=== PATIENT | male | born 1960 | race African-American/Black ===

== ENCOUNTER 2016-06-28 14:24 | Inpatient (IN) | payer OTHER ==
[2016-06-28 16:49] VITALS: BMI 30.6
--- NOTE | 2016-06-28 17:25 | HP ---
Admission [facility] Chief Complaint: REHAB TX FOR DRUG DEPENDENCE Allergies/Adverse Reactions: Allergies Allergy/AdvReac Type Severity Reaction Status Date / Time No Known Drug Allergies Allergy Verified 06/28/16 17:16 lactose AdvReac bloating Verified 06/28/16 17:16 and gas red sauce Allergy Intermediate Hives Uncoded 06/28/16 17:16 RED MEAT Allergy Mild Hives Uncoded 06/28/16 17:16 History of Present Illness: 55 Y/O AA/MALE WITH A HX OF COCAINE AND MARIJUANA DEPENDENCE SEEKING REHAB TX Exam Limitations: No Limitations - Ebola screening Have you traveled outside of the country in the last 21 days: No Have you had contact with anyone from an Ebola affected area: No Have you been sick,other than usual withdrawal symptoms: No Do you have a fever: No - Review of Systems Constitutional: Loss of Appetite, Changes in sleep, Unintentional Wgt. Loss EENT: reports: Blurred Vision (WEARS GLASSES), Dental Problems (UPPER DENTURES) Respiratory: reports: No Symptoms reported Cardiac: reports: Lightheadedness (ON GETTING UP) GI: reports: Constipated, Poor Appetite : reports: No Symptoms Reported Musculoskeletal: reports: Back Pain (LAMINECTOMY WITH FUSION SX), Muscle Pain, Neck Pain, Other (ARTHRITIS OF HAND JOINTS) Integumentary: reports: Dryness Neuro: reports: Numbness, Tingling, Dizziness, Other (HX NEUROPATHY OF LOWER EXTREMITIES) Endocrine: reports: No Symptoms Reported Hematology: reports: No Symptoms Reported Psychiatric: reports: Orientated x3, Anxious, Depressed (SOMETIMES.) Other Systems: Reviewed and Negative Patient History - Patient Medical History Hx Anemia: No Hx Asthma: No Hx Chronic Obstructive Pulmonary Disease (COPD): No Hx Cancer: No Hx Cardiac Disorders: Yes (CHEST PAINS-- TWO STENTS.) Hx Congestive Heart Failure: No Hx Hypertension: Yes (ON MEDS) Hx Hypercholesterolemia: Yes (ON MEDS) Hx Pacemaker: No HX Cerebrovascular Accident: No Hx Seizures: No Hx Dementia: No Hx Diabetes: Yes (ON METFORMIN 500 MG BID) Hx Gastrointestinal Disorders: No Hx Liver Disease: No Hx Genitourinary Disorders: No Hx Sexually Transmitted Disorders: No Hx Renal Disease (ESRD): No Hx Thyroid Disease: No Hx Human Immunodeficiency Virus (HIV): No (NEGATIVE HX) Hx Hepatitis C: No Hx Depression: No Hx Suicide Attempt: No Hx Bipolar Disorder: No Hx Schizophrenia: No Other Medical History: HX INSOMNIA--ON SEROQUEL - Patient Surgical History Past Surgical History: No Hx Neurologic Surgery: No Hx Cataract Extraction: No Hx Cardiac Surgery: Yes (CARDIAC STENTS #2 in 2010) Hx Lung Surgery: No Hx Breast Surgery: No Hx Breast Biopsy: No Hx Abdominal Surgery: No Hx Appendectomy: No Hx Cholecystectomy: Yes (02/22) Hx Genitourinary Surgery: No Hx Section: No Hx Orthopedic Surgery: Yes (S/P LAMINECTOMY C3,4,5 2004) Hx Hysterectomy: No Other Surgical History: CHRONIC CERVICAL PAIN Anesthesia Reaction: No - PPD History Previous Implant?: Yes Documented Results: Negative w/proof Implanted On Prior [facility] Admission?: Yes Date: 11/28/14 Results: 0mm PPD to be Administered?: Yes - Reproductive History Patient is a Female of Child Bearing Age (11 -55 yrs old): No (MALE) - Smoking Cessation Smoking history: Current every day smoker Have you smoked in the past 12 months: Yes Aproximately how many cigarettes per day: 10 Cigars Per Day: 0 Hx Chewing Tobacco Use: No Initiated information on smoking cessation: Yes 'Breaking Loose' booklet given: 06/28/16 - Substance & Tx. History Hx Alcohol Use: No (DENIES) Hx Substance Use: Yes (COCAINE/MARIJUANA) Substance Use Type: Cocaine, Marijuana Hx Substance Use Treatment: Yes - Substances Abused Cocaine Route: Smoking Frequency: 1-3 times last 30 days Amount used: $200-250 Age of first use: 22 Date of Last Use: 06/25/16 Marijuana/Hashish Route: Smoking Frequency: Daily Amount used: 2 BAGS Age of first use: 15 Date of Last Use: 06/27/16 Family Disease History - Family Disease History Family Disease History: CA: Father (alzheimers,ALCOHOL), Other: Father, Mother ( ALCOHOL, HTN), Brother (aneurysm ) Admission Physical Exam [facility] - Vital Signs Vital Signs: Vital Signs - 24 hr 06/28/16 16:44 Temperature 97.2 F L Pulse Rate 79 Respiratory 18 Rate Blood Pressure 127/77 - Physical General Appearance: Yes: No Apparent Distress, Anxious HEENTM: Yes: EOMI, Normocephalic, HAIDER, Pharynx Normal Respiratory: Yes: Chest Non-Tender, Lungs Clear, Normal Breath Sounds, No Respiratory Distress Neck: Yes: Supple, Trachea in good position Breast: Yes: Breast Exam Deferred Cardiology: Yes: Regular Rhythm, Regular Rate, S1, S2 Abdominal: Yes: Normal Bowel Sounds, Non Tender, Soft Genitourinary: Yes: Other (N/C) Back: Yes: Surgical Scar Musculoskeletal: Yes: full range of Motion, Gait Steady Extremities: Yes: Normal Range of Motion, Non-Tender Neurological: Yes: senior database administrator II-XII NML intact, Fully Oriented, Alert Integumentary: Yes: Dry, Warm Lymphatic: Yes: Within Normal Limits - Diagnostic (1) Alcohol dependence with uncomplicated withdrawal Current Visit: No Status: Inactive (2) Back pain Current Visit: Yes Status: Chronic Qualifiers: Chronicity: chronic Back pain laterality: midline Sciatica laterality: bilateral sciatica Comment: PAIN OF WHOLE SPINE (3) CAD (coronary artery disease) Current Visit: Yes Status: Chronic Qualifiers: Coronary Disease-Associated Artery/Lesion type: bypass graft [place] vs. transplanted heart: [place] heart (4) Cannabis dependence Current Visit: Yes Status: Chronic (5) Cocaine dependence Current Visit: Yes Status: Chronic Qualifiers: Substance use status: uncomplicated Qualified Code(s): F14.20 - Cocaine dependence, uncomplicated (6) Diabetes mellitus Current Visit: Yes Status: Chronic Qualifiers: Diabetes mellitus type: type 2 Diabetes mellitus complication status: without complication (7) Hypertension Current Visit: Yes Status: Chronic Qualifiers: Hypertension type: essential hypertension Qualified Code(s): I10 - Essential (primary) hypertension (8) Nicotine dependence Current Visit: Yes Status: Chronic Qualifiers: Nicotine product type: cigarettes Substance use status: uncomplicated Qualified Code(s): F17.210 - Nicotine dependence, cigarettes, uncomplicated (9) Obesity Current Visit: Yes Status: Chronic Qualifiers: Obesity severity: unspecified obesity severity (10) PCP abuse Current Visit: No Status: Inactive (11) Xerosis of skin Current Visit: Yes Status: Chronic Cleared for Admission [facility] - Detox or Rehab Claeared for Rehab Admission: Yes S Breath Alcohol Content Breath Alcohol Content: 0 Urine Drug Screen - Results Urine Drug Screen Results: THC-Marijuana, JAMAAL-Cocaine
[2016-06-28] MEDS ORDERED: MENTHOL/PHENOL 1 EACH UD MM PRN (17:51)
[2016-06-28] MEDS ORDERED: P-EPHED 60MG/TRIPROLIDI 2.5MG TABLET PO PRN (17:51)
[2016-06-28] MEDS ORDERED: LOPERAMIDE HCL 2 MG CAPSULE PO PRN (17:51)
[2016-06-28] MEDS ORDERED: MAGNESIUM HYDROX 2400MG/30ML ORAL SUSPENSION 30 ML CUP PO PRN (17:51)
[2016-06-28] MEDS ORDERED: MAGNESIUM CITRATE 300 ML BOTTLE PO PRN (17:51)
[2016-06-28] MEDS ORDERED: hydrOXYzine PAMOATE 25 MG CAPSULE (FP) PO PRN (17:51)
[2016-06-28] MEDS ORDERED: guaiFENesin/D-METHORPHAN HB 10 ML UNIT-DOSE CUPS PO PRN (17:51)
[2016-06-28] MEDS ORDERED: IBUPROFEN 400 MG TABLET (FP) PO PRN (17:51)
[2016-06-28] MEDS ORDERED: MAG HYDROX/AL HYDROX/SIMETH 30 ML UNIT-DOSE CUP PO PRN (17:51)
[2016-06-28] MEDS ORDERED: AMMONIUM LACTATE 12% LOTION 225 GM BOTTLE TP SCH (18:00)
[2016-06-28] MEDS: NICOTINE 14 MG/24 HOURS TOPICAL PATCH TD SCH (21:59)
[2016-06-28] MEDS: THIAMINE HCL 100 MG TABLET (FP) PO SCH (22:02)
[2016-06-28] MEDS ORDERED: TUBERCULIN PPD 5 TU/0.1ML VIAL ID ONE (22:02)
[2016-06-28] MEDS: GABAPENTIN 400 MG CAPSULE (FP) PO SCH (22:02)
[2016-06-28] MEDS: FENOFIBRIC ACID 45 MG CAP PO SCH (22:04)
[2016-06-28] MEDS: hydrALAZINE HCL 25 MG TABLET (FP) PO SCH (22:04)
[2016-06-28] MEDS: diphenhydrAMINE HCL 50 MG CAPSULE PO PRN (22:05)
[2016-06-28 23:15] LABS: URINE APPEARANCE CLEAR; URINE BILIRUBIN NEGATIVE (NEGATIVE); URINE BLOOD NEGATIVE (NEGATIVE); URINE COLOR COLORLESS; URINE GLUCOSE (UA) NEGATIVE (NEGATIVE); URINE KETONE NEGATIVE (NEGATIVE); URINE LEUK ESTERASE NEGATIVE (NEGATIVE); URINE NITRITE NEGATIVE (NEGATIVE); URINE PROTEIN NEGATIVE (NEGATIVE); URINE UROBILINOGEN NEGATIVE E.U./dl (0.2-1.0)
[2016-06-29] MEDS: GABAPENTIN 400 MG CAPSULE (FP) PO SCH ×3 (06:58→21:40)
[2016-06-29] MEDS: INSULIN SLIDING SCALE (NOVOLOG) 1 VIAL SQ SCH ×2 (06:58→16:51)
[2016-06-29] MEDS: metFORMIN HCL 500 MG TABLET (FP) PO SCH ×2 (06:58→16:51)
[2016-06-29 10:18] LABS: MCH 30.6 pg (25.7-33.7); MCHC 33.3 g/dl (32.0-35.9); MEAN CELL VOLUME 91.9 fl (80-96); MEAN PLT VOLUME 9.4 fl (7.5-11.1); PLATELET COUNT 148 K/MM3 (134-434); RDW 12.9 % (11.9-15.9); WHITE BLOOD COUNT 3.3 K/mm3 (4.0-10.0)
[2016-06-29] MEDS: ASPIRIN 81 MG CHEWABLE TABLETS PO SCH (10:25)
[2016-06-29] MEDS: NIFEdipine E.R. 30 MG TABLET (FP) PO SCH (10:25)
[2016-06-29] MEDS: CLOPIDOGREL BISULFATE 75 MG TABLET (FP) PO SCH (10:25)
[2016-06-29] MEDS: PRENATAL VITAMINS W/ FOLIC ACID TABLET (FP) PO SCH (10:25)
[2016-06-29] MEDS: NICOTINE 14 MG/24 HOURS TOPICAL PATCH TD SCH (10:26)
[2016-06-29] MEDS: hydrALAZINE HCL 25 MG TABLET (FP) PO SCH ×2 (10:26→21:40)
[2016-06-29] MEDS: FENOFIBRIC ACID 45 MG CAP PO SCH (10:26)
[2016-06-29 10:35] LABS: ALBUMIN 3.1 g/dl (3.4-5.0); ALK PHOS 126 U/L (45-117); ANION GAP 7 (8-16); BILIRUBIN,TOTAL 0.4 mg/dL (0.2-1.0); CALCIUM 8.5 mg/dL (8.5-10.1); CO2 26 mmol/L (21-32); CREATININE 0.8 mg/dL (0.7-1.3); GLUCOSE,RANDOM 96 mg/dL (74-106); SGOT/AST 11 U/L (15-37); SGPT/ALT 18 U/L (12-78); TOT PROT 6.1 g/dl (6.4-8.2)
--- NOTE | 2016-06-29 13:39 | HP ---
Psychiatrist Admission - Data Date of interview: 06/29/16 Admission source: [facility] Identifying data: This is the [facility] inpatient rehabilitation admission for this 55 year old single black male father who is unemployed and domiciled, residing alone in [facility]. Medical History: History of CAD ( two stents the last one in 2010), HTN, High cholesterol, DM, Arthritis to both hands, S/P Choleccystectomy, S/P Laminectomy of C3,4,5 and reports chronic cervical pain and sciatica from cervical spine to legs. Smokes 4-5 cigarettes daily. Psychiatric History: Patient reports past history of depression, no psychiatric hospitalizations , while at [facility] treated with Remeron with a good responce, states some nights he can't sleep and he asked PRN Remeron. Physical/Sexual Abuse/Trauma History: Reports no history of physical or sexual abuse and no history of service Vital Signs: Vital Signs - 24 hr 06/28/16 06/28/16 06/29/16 16:44 19:38 00:39 Temperature 97.2 F L 99.4 F Pulse Rate 79 80 Respiratory 18 18 18 Rate Blood Pressure 127/77 134/92 06/29/16 06/29/16 03:30 10:00 Temperature Pulse Rate 74 Respiratory 18 Rate Blood Pressure 144/85 Allergies/Adverse Reactions: Allergies Allergy/AdvReac Type Severity Reaction Status Date / Time No Known Drug Allergies Allergy Verified 06/28/16 17:16 lactose AdvReac bloating Verified 06/28/16 17:16 and gas red sauce Allergy Intermediate Hives Uncoded 06/28/16 17:16 RED MEAT Allergy Mild Hives Uncoded 06/28/16 17:16 Date of last physical exam: 06/28/16 Concur with the findings of this exam: Yes - Substance Abuse/Tx History Hx Alcohol Use: No Substance Use Type: Cocaine ($200 , reports recently relapsed), Marijuana Hx Substance Use Treatment: Yes - Admission Criteria Previous failed treatment: Yes Poor recovery environment: Yes Comorbidities: Yes Lacks judgement: Yes Mental Status Exam - Mental Status Exam Alert and Oriented to: Time, Place, Person Cognitive Function: Good Patient Appearance: Well Groomed Mood: Sad Affect: Appropriate, Mood Congruent Patient Behavior: Appropriate, Cooperative Speech Pattern: Clear, Appropriate Thought Process: Intact, Goal Oriented Thought Disorder: Not Present Hallucinations: None Suicidal Ideation: None Homicidal Ideation: None Insight/Judgement: Good Sleep: Poorly, Difficulty falling asleep Appetite: Good Muscle strength/Tone: Normal Gait/Station: Normal Psychiatric Findings - Problem List ([place] 1, 2,3) (1) Back pain Current Visit: Yes Status: Chronic Qualifiers: Chronicity: chronic Back pain laterality: midline Sciatica laterality: bilateral sciatica Comment: PAIN OF WHOLE SPINE (2) CAD (coronary artery disease) Current Visit: Yes Status: Chronic Qualifiers: Coronary Disease-Associated Artery/Lesion type: bypass graft [place] vs. transplanted heart: [place] heart (3) Cannabis dependence Current Visit: Yes Status: Chronic (4) Cocaine dependence Current Visit: Yes Status: Chronic Qualifiers: Substance use status: uncomplicated Qualified Code(s): F14.20 - Cocaine dependence, uncomplicated (5) Diabetes mellitus Current Visit: Yes Status: Chronic Qualifiers: Diabetes mellitus type: type 2 Diabetes mellitus complication status: without complication (6) Hypertension Current Visit: Yes Status: Chronic Qualifiers: Hypertension type: essential hypertension Qualified Code(s): I10 - Essential (primary) hypertension (7) Nicotine dependence Current Visit: Yes Status: Chronic Qualifiers: Nicotine product type: cigarettes Substance use status: uncomplicated Qualified Code(s): F17.210 - Nicotine dependence, cigarettes, uncomplicated (8) Insomnia Current Visit: Yes Status: Acute - Initial Treatment Plan Initial Treatment Plan: Will add Remeron PRN, continue to monitor progress as needed.
[2016-06-29] MEDS ORDERED: LIDOCAINE 5% TOPICAL PATCH TP ONE (14:36)
--- NOTE | 2016-06-29 16:54 | EKG ---
Test Reason : Blood Pressure : / mmHG Vent. Rate : 075 BPM Atrial Rate : 075 BPM P-R Int : 184 ms QRS Dur : 110 ms QT Int : 374 ms P-R-T Axes : 056 -44 -03 degrees QTc Int : 417 ms NORMAL SINUS RHYTHM LEFT AXIS DEVIATION VOLTAGE CRITERIA FOR LEFT VENTRICULAR HYPERTROPHY ABNORMAL ECG WHEN COMPARED WITH ECG OF 09-FEB-2014 15:43, T WAVE VARIATION Confirmed by SUZETTE DOBBS MD ([id number]) on 06/29/2016 4:54:26 PM Referred By: Confirmed By:SUZETTE DOBBS MD
[2016-06-29] MEDS: THIAMINE HCL 100 MG TABLET (FP) PO SCH (21:40)
[2016-06-29] MEDS: diphenhydrAMINE HCL 50 MG CAPSULE PO PRN (21:41)
[2016-06-30] MEDS: metFORMIN HCL 500 MG TABLET (FP) PO SCH ×2 (06:27→16:46)
[2016-06-30] MEDS: GABAPENTIN 400 MG CAPSULE (FP) PO SCH ×3 (06:27→21:06)
[2016-06-30] MEDS: INSULIN SLIDING SCALE (NOVOLOG) 1 VIAL SQ SCH ×2 (06:28→16:47)
[2016-06-30] MEDS: NIFEdipine E.R. 30 MG TABLET (FP) PO SCH (10:11)
[2016-06-30] MEDS: CLOPIDOGREL BISULFATE 75 MG TABLET (FP) PO SCH (10:11)
[2016-06-30] MEDS: hydrALAZINE HCL 25 MG TABLET (FP) PO SCH ×2 (10:12→21:06)
[2016-06-30] MEDS: NICOTINE 14 MG/24 HOURS TOPICAL PATCH TD SCH (10:12)
[2016-06-30] MEDS: PRENATAL VITAMINS W/ FOLIC ACID TABLET (FP) PO SCH (10:12)
[2016-06-30] MEDS: NICOTINE POLACRILEX 2 MG GUM BC PRN (10:13)
[2016-06-30] MEDS: FENOFIBRIC ACID 45 MG CAP PO SCH (10:13)
[2016-06-30] MEDS: ASPIRIN 81 MG CHEWABLE TABLETS PO SCH (10:14)
[2016-06-30] MEDS: LIDOCAINE 5% TOPICAL PATCH TP SCH (10:14)
[2016-06-30] MEDS: THIAMINE HCL 100 MG TABLET (FP) PO SCH (21:06)
[2016-06-30] MEDS: MIRTAZAPINE 15 MG TABLET (FP) PO PRN (21:07)
[2016-07-01] MEDS: metFORMIN HCL 500 MG TABLET (FP) PO SCH ×2 (06:31→17:02)
[2016-07-01] MEDS: GABAPENTIN 400 MG CAPSULE (FP) PO SCH ×3 (06:31→21:05)
[2016-07-01] MEDS: INSULIN SLIDING SCALE (NOVOLOG) 1 VIAL SQ SCH ×2 (07:38→17:02)
[2016-07-01] MEDS: ASPIRIN 81 MG CHEWABLE TABLETS PO SCH (10:21)
[2016-07-01] MEDS: hydrALAZINE HCL 25 MG TABLET (FP) PO SCH ×2 (10:21→21:05)
[2016-07-01] MEDS: CLOPIDOGREL BISULFATE 75 MG TABLET (FP) PO SCH (10:21)
[2016-07-01] MEDS: PRENATAL VITAMINS W/ FOLIC ACID TABLET (FP) PO SCH (10:21)
[2016-07-01] MEDS: NIFEdipine E.R. 30 MG TABLET (FP) PO SCH (10:21)
[2016-07-01] MEDS: LIDOCAINE 5% TOPICAL PATCH TP SCH (10:22)
[2016-07-01] MEDS: NICOTINE 14 MG/24 HOURS TOPICAL PATCH TD SCH (10:22)
[2016-07-01] MEDS: FENOFIBRIC ACID 45 MG CAP PO SCH (10:25)
[2016-07-01] MEDS: THIAMINE HCL 100 MG TABLET (FP) PO SCH (21:05)
[2016-07-01] MEDS: MIRTAZAPINE 15 MG TABLET (FP) PO PRN (21:07)
[2016-07-02] MEDS: metFORMIN HCL 500 MG TABLET (FP) PO SCH ×2 (06:27→16:40)
[2016-07-02] MEDS: GABAPENTIN 400 MG CAPSULE (FP) PO SCH ×3 (06:27→21:01)
[2016-07-02] MEDS: INSULIN SLIDING SCALE (NOVOLOG) 1 VIAL SQ SCH ×2 (06:28→16:40)
[2016-07-02] MEDS: NIFEdipine E.R. 30 MG TABLET (FP) PO SCH (09:59)
[2016-07-02] MEDS: ASPIRIN 81 MG CHEWABLE TABLETS PO SCH (09:59)
[2016-07-02] MEDS: CLOPIDOGREL BISULFATE 75 MG TABLET (FP) PO SCH (09:59)
[2016-07-02] MEDS: hydrALAZINE HCL 25 MG TABLET (FP) PO SCH ×2 (10:00→21:02)
[2016-07-02] MEDS: PRENATAL VITAMINS W/ FOLIC ACID TABLET (FP) PO SCH (10:00)
[2016-07-02] MEDS: NICOTINE 14 MG/24 HOURS TOPICAL PATCH TD SCH (10:01)
[2016-07-02] MEDS: LIDOCAINE 5% TOPICAL PATCH TP SCH (10:01)
[2016-07-02] MEDS: FENOFIBRIC ACID 45 MG CAP PO SCH (10:02)
[2016-07-02] MEDS: AMMONIUM LACTATE 12% LOTION 225 GM BOTTLE TP PRN (10:51)
[2016-07-02] MEDS ORDERED: BACITRACIN 0.9 GM PACKET TP ONE (14:48)
--- NOTE | 2016-07-02 14:50 | PN ---
[facility] Progress Note Note: Pt. C/O dry closed lesions of the foreskin. P : Bacitracin oin't bid
[2016-07-02] MEDS: THIAMINE HCL 100 MG TABLET (FP) PO SCH (21:02)
[2016-07-02] MEDS: BACITRACIN 0.9 GM PACKET TP SCH (21:02)
[2016-07-03] MEDS: MIRTAZAPINE 15 MG TABLET (FP) PO PRN ×2 (00:01→21:28)
[2016-07-03] MEDS: metFORMIN HCL 500 MG TABLET (FP) PO SCH ×2 (07:15→16:33)
[2016-07-03] MEDS: GABAPENTIN 400 MG CAPSULE (FP) PO SCH ×3 (07:15→21:25)
[2016-07-03] MEDS: INSULIN SLIDING SCALE (NOVOLOG) 1 VIAL SQ SCH ×2 (07:16→16:33)
[2016-07-03] MEDS: NIFEdipine E.R. 30 MG TABLET (FP) PO SCH (10:07)
[2016-07-03] MEDS: PRENATAL VITAMINS W/ FOLIC ACID TABLET (FP) PO SCH (10:07)
[2016-07-03] MEDS: CLOPIDOGREL BISULFATE 75 MG TABLET (FP) PO SCH (10:07)
[2016-07-03] MEDS: ASPIRIN 81 MG CHEWABLE TABLETS PO SCH (10:07)
[2016-07-03] MEDS: BACITRACIN 0.9 GM PACKET TP SCH ×2 (10:08→21:25)
[2016-07-03] MEDS: FENOFIBRIC ACID 45 MG CAP PO SCH (10:08)
[2016-07-03] MEDS: LIDOCAINE 5% TOPICAL PATCH TP SCH (10:09)
[2016-07-03] MEDS: hydrALAZINE HCL 25 MG TABLET (FP) PO SCH ×2 (10:09→21:29)
[2016-07-03] MEDS: NICOTINE 14 MG/24 HOURS TOPICAL PATCH TD SCH (10:10)
[2016-07-03] MEDS: THIAMINE HCL 100 MG TABLET (FP) PO SCH (21:26)
[2016-07-04] MEDS: GABAPENTIN 400 MG CAPSULE (FP) PO SCH ×3 (06:32→21:25)
[2016-07-04] MEDS: metFORMIN HCL 500 MG TABLET (FP) PO SCH ×2 (06:32→16:52)
[2016-07-04] MEDS: INSULIN SLIDING SCALE (NOVOLOG) 1 VIAL SQ SCH ×2 (06:40→16:52)
[2016-07-04] MEDS: BACITRACIN 0.9 GM PACKET TP SCH ×2 (10:12→21:25)
[2016-07-04] MEDS: hydrALAZINE HCL 25 MG TABLET (FP) PO SCH ×2 (10:12→21:26)
[2016-07-04] MEDS: CLOPIDOGREL BISULFATE 75 MG TABLET (FP) PO SCH (10:12)
[2016-07-04] MEDS: ASPIRIN 81 MG CHEWABLE TABLETS PO SCH (10:12)
[2016-07-04] MEDS: NIFEdipine E.R. 30 MG TABLET (FP) PO SCH (10:12)
[2016-07-04] MEDS: PRENATAL VITAMINS W/ FOLIC ACID TABLET (FP) PO SCH (10:12)
[2016-07-04] MEDS: LIDOCAINE 5% TOPICAL PATCH TP SCH (10:13)
[2016-07-04] MEDS: NICOTINE 14 MG/24 HOURS TOPICAL PATCH TD SCH (10:14)
[2016-07-04] MEDS: FENOFIBRIC ACID 45 MG CAP PO SCH (10:14)
[2016-07-04] MEDS: THIAMINE HCL 100 MG TABLET (FP) PO SCH (21:25)
[2016-07-04] MEDS: MIRTAZAPINE 15 MG TABLET (FP) PO PRN (21:26)
[2016-07-05] MEDS: GABAPENTIN 400 MG CAPSULE (FP) PO SCH ×3 (06:25→21:22)
[2016-07-05] MEDS: metFORMIN HCL 500 MG TABLET (FP) PO SCH ×2 (06:25→16:45)
[2016-07-05] MEDS: INSULIN SLIDING SCALE (NOVOLOG) 1 VIAL SQ SCH ×2 (06:26→16:46)
[2016-07-05] MEDS: BACITRACIN 0.9 GM PACKET TP SCH ×2 (10:09→21:22)
[2016-07-05] MEDS: NIFEdipine E.R. 30 MG TABLET (FP) PO SCH (10:09)
[2016-07-05] MEDS: ASPIRIN 81 MG CHEWABLE TABLETS PO SCH (10:09)
[2016-07-05] MEDS: CLOPIDOGREL BISULFATE 75 MG TABLET (FP) PO SCH (10:09)
[2016-07-05] MEDS: PRENATAL VITAMINS W/ FOLIC ACID TABLET (FP) PO SCH (10:10)
[2016-07-05] MEDS: LIDOCAINE 5% TOPICAL PATCH TP SCH (10:10)
[2016-07-05] MEDS: hydrALAZINE HCL 25 MG TABLET (FP) PO SCH ×2 (10:10→21:22)
[2016-07-05] MEDS: NICOTINE 14 MG/24 HOURS TOPICAL PATCH TD SCH (10:11)
[2016-07-05] MEDS: FENOFIBRIC ACID 45 MG CAP PO SCH (10:11)
--- NOTE | 2016-07-05 15:29 | PN ---
Psychiatric Progress Note Vital Signs: Vital Signs Period Temp Pulse Resp BP Sys/Portillo Pulse Ox Last 24 Hr 98.0 F 66-71 18-18 116-132/77-79 Date of Session: 07/05/16 Chief Complaint:: "re-evaluation" HPI: Patient is addressing cocaine, cannabis, nicotine dependence comorbid Insomnia. ROS: CAD ( two stents the last one in 2010), HTN, High cholesterol, DM, Arthritis to both hands, S/P Choleccystectomy, S/P Laminectomy of C3,4,5 and reports chronic cervical pain and sciatica from cervical spine to legs. Current Medications: Active Medications Generic Name Dose Route Start Last Admin Trade Name Freq PRN Reason Stop Dose Admin Acetaminophen 650 mg 06/28/16 17:51 Tylenol - PO Q4H PRN PAIN Al Hydroxide/Mg Hydroxide 30 ml 06/28/16 17:51 Mylanta Oral Suspension - PO Q6H PRN DYSPEPSIA Aspirin 81 mg 06/29/16 10:00 07/05/16 10:09 Asa - PO 81 mg DAILY ELOINA Administration Bacitracin 0.9 gm 07/02/16 22:00 07/05/16 10:09 Bacitracin - TP 0.9 gm BID ELOINA Administration Clopidogrel Bisulfate 75 mg 06/29/16 10:00 07/05/16 10:09 Plavix - PO 75 mg DAILY ELOINA Administration Diphenhydramine HCl 50 mg 06/28/16 17:51 06/29/16 21:41 Benadryl - PO 50 mg HSMR1 PRN Administration INSOMNIA Eucalyptus/Menthol/Phenol/Sorbitol 1 each 06/28/16 17:51 Cepastat Lozenge - MM Q4H PRN SORE THROAT Fenofibric Acid 45 mg 06/28/16 18:30 07/05/16 10:11 Trilipix - PO 45 mg DAILY ELOINA Administration Gabapentin 800 mg 06/28/16 22:00 07/05/16 14:11 Neurontin - PO 800 mg TID ELOINA Administration Guaifenesin 10 ml 06/28/16 17:51 Robitussin Dm - PO Q6H PRN COUGH Hydralazine HCl 25 mg 06/28/16 22:00 07/05/16 10:10 Apresoline - PO 25 mg BID ELOINA Administration Hydroxyzine Pamoate 25 mg 06/28/16 17:51 Vistaril - PO Q4H PRN AGITATION Ibuprofen 400 mg 06/28/16 17:51 Motrin - PO Q6H PRN SEVERE PAIN Insulin Aspart 1 vial 06/29/16 07:00 07/05/16 06:26 Novolog Vial Sliding Scale - SQ Not Given BIDAC [facility] Protocol Lactic Acid 1 applic 07/01/16 13:18 07/02/16 10:51 Lac-Hydrin 12 TP 1 applic BID PRN Administration DRY SKIN Lidocaine 1 patch 06/30/16 10:00 07/05/16 10:10 Lidoderm Patch - TP 1 patch DAILY ELOINA Administration Loperamide HCl 4 mg 06/28/16 17:51 Imodium - PO Q6H PRN DIARRHEA Magnesium Citrate 300 ml 06/28/16 17:51 Citroma - PO Q48H PRN CONSTIPATION Magnesium Hydroxide 30 ml 06/28/16 17:51 Milk Of Magnesia - PO DAILY PRN CONSTIPATION Metformin HCl 500 mg 06/29/16 07:00 07/05/16 06:25 Glucophage - PO 500 mg BID@0700,1630 ELOINA Administration Mirtazapine 15 mg 06/29/16 14:33 07/04/16 21:26 Remeron - PO 15 mg HS PRN Administration INSOMNIA Nicotine 14 mg 06/28/16 18:30 07/05/16 10:11 Nicoderm Patch - TD Not Given DAILY ELOINA Nicotine Polacrilex 2 mg 06/28/16 17:51 06/30/16 10:13 Nicorette Gum - BC 2 mg Q2H PRN Administration NICOTINE REPLACEMENT RX Nifedipine 30 mg 06/29/16 10:00 07/05/16 10:09 Procardia Xl - PO 30 mg DAILY ELOINA Administration Multivit/Folic Acid/Iron 1 tab 06/29/16 10:00 07/05/16 10:10 Vitamins (Sjr) - PO 1 tab DAILY ELOINA Administration Pseudoephedrine/Triprolidine 1 combo 06/28/16 17:51 Actifed - PO TID PRN NASAL CONGESTION Thiamine HCl 100 mg 06/28/16 22:00 07/04/16 21:25 Vitamin B1 - PO 100 mg HS ELOINA Administration Current Side Effect: No Lab tests ordered: No Lab tests reviewed: Yes Provider note:: Was asked by the staff to re-evaluate the patient "due to behavioral issues", patient was seen, he offers no complaints. He has been attending groups and seems to be involved in discussions. Medication well tolarated, patient sleeps better and less anxious. MSE completed. Will continue to monitor progress. Total face to face time:: 35 Mental Status Exam - Mental Status Exam Alert and Oriented to: Time, Place, Person Cognitive Function: Grossly Intact Patient Appearance: Well Groomed Mood: Hopeful Affect: Appropriate, Mood Congruent, Normal Range Patient Behavior: Appropriate, Cooperative Speech Pattern: Clear, Appropriate Voice Loudness: Normal Thought Process: Intact, Goal Oriented Thought Disorder: Not Present Hallucinations: Denies Suicidal Ideation: Denies Homicidal Ideation: Denies Insight/Judgement: Fair Sleep: Fair Appetite: Fair Muscle strength/Tone: Normal Gait/Station: Normal Psychiatric Treatment Plan - Problem List (1) Back pain Current Visit: Yes Qualifiers: Chronicity: chronic Back pain laterality: midline Sciatica laterality: bilateral sciatica Comment: PAIN OF WHOLE SPINE (2) CAD (coronary artery disease) Current Visit: Yes Qualifiers: Coronary Disease-Associated Artery/Lesion type: bypass graft [place] vs. transplanted heart: [place] heart (3) Cannabis dependence Current Visit: Yes (4) Cocaine dependence Current Visit: Yes Qualifiers: Substance use status: uncomplicated Qualified Code(s): F14.20 - Cocaine dependence, uncomplicated (5) Diabetes mellitus Current Visit: Yes Qualifiers: Diabetes mellitus type: type 2 Diabetes mellitus complication status: without complication (6) Hypertension Current Visit: Yes Qualifiers: Hypertension type: essential hypertension Qualified Code(s): I10 - Essential (primary) hypertension (7) Nicotine dependence Current Visit: Yes Qualifiers: Nicotine product type: cigarettes Substance use status: uncomplicated Qualified Code(s): F17.210 - Nicotine dependence, cigarettes, uncomplicated (8) Insomnia Current Visit: Yes
[2016-07-05] MEDS: AMMONIUM LACTATE 12% LOTION 225 GM BOTTLE TP PRN (16:46)
[2016-07-05] MEDS: THIAMINE HCL 100 MG TABLET (FP) PO SCH (21:23)
[2016-07-05] MEDS: MIRTAZAPINE 15 MG TABLET (FP) PO PRN (21:23)
[2016-07-06] MEDS: metFORMIN HCL 500 MG TABLET (FP) PO SCH ×2 (06:27→16:43)
[2016-07-06] MEDS: GABAPENTIN 400 MG CAPSULE (FP) PO SCH ×3 (06:27→21:01)
[2016-07-06] MEDS: INSULIN SLIDING SCALE (NOVOLOG) 1 VIAL SQ SCH ×2 (06:28→16:44)
[2016-07-06] MEDS: ASPIRIN 81 MG CHEWABLE TABLETS PO SCH (09:54)
[2016-07-06] MEDS: FENOFIBRIC ACID 45 MG CAP PO SCH (09:54)
[2016-07-06] MEDS: NIFEdipine E.R. 30 MG TABLET (FP) PO SCH (09:54)
[2016-07-06] MEDS: BACITRACIN 0.9 GM PACKET TP SCH ×2 (09:54→21:01)
[2016-07-06] MEDS: PRENATAL VITAMINS W/ FOLIC ACID TABLET (FP) PO SCH (09:54)
[2016-07-06] MEDS: CLOPIDOGREL BISULFATE 75 MG TABLET (FP) PO SCH (09:54)
[2016-07-06] MEDS: hydrALAZINE HCL 25 MG TABLET (FP) PO SCH ×2 (09:55→21:01)
[2016-07-06] MEDS: LIDOCAINE 5% TOPICAL PATCH TP SCH (09:56)
[2016-07-06] MEDS: NICOTINE 14 MG/24 HOURS TOPICAL PATCH TD SCH (09:56)
[2016-07-06] MEDS: ACETAMINOPHEN 325 MG TABLET (FP) PO PRN (09:57)
[2016-07-06] MEDS: MIRTAZAPINE 15 MG TABLET (FP) PO PRN (21:01)
[2016-07-06] MEDS: THIAMINE HCL 100 MG TABLET (FP) PO SCH (21:01)
[2016-07-07] MEDS: metFORMIN HCL 500 MG TABLET (FP) PO SCH ×2 (06:54→16:41)
[2016-07-07] MEDS: INSULIN SLIDING SCALE (NOVOLOG) 1 VIAL SQ SCH ×2 (06:54→17:49)
[2016-07-07] MEDS: GABAPENTIN 400 MG CAPSULE (FP) PO SCH ×3 (06:54→21:47)
[2016-07-07] MEDS: CLOPIDOGREL BISULFATE 75 MG TABLET (FP) PO SCH (10:05)
[2016-07-07] MEDS: ASPIRIN 81 MG CHEWABLE TABLETS PO SCH (10:05)
[2016-07-07] MEDS: PRENATAL VITAMINS W/ FOLIC ACID TABLET (FP) PO SCH (10:06)
[2016-07-07] MEDS: NIFEdipine E.R. 30 MG TABLET (FP) PO SCH (10:06)
[2016-07-07] MEDS: hydrALAZINE HCL 25 MG TABLET (FP) PO SCH ×2 (10:06→21:47)
[2016-07-07] MEDS: NICOTINE 14 MG/24 HOURS TOPICAL PATCH TD SCH (10:06)
[2016-07-07] MEDS: BACITRACIN 0.9 GM PACKET TP SCH ×2 (10:06→21:47)
[2016-07-07] MEDS: LIDOCAINE 5% TOPICAL PATCH TP SCH (10:07)
[2016-07-07] MEDS: FENOFIBRIC ACID 45 MG CAP PO SCH (10:07)
[2016-07-07] MEDS: THIAMINE HCL 100 MG TABLET (FP) PO SCH (21:47)
[2016-07-07] MEDS: MIRTAZAPINE 15 MG TABLET (FP) PO PRN (21:49)
[2016-07-08] MEDS: metFORMIN HCL 500 MG TABLET (FP) PO SCH ×2 (06:39→16:52)
[2016-07-08] MEDS: GABAPENTIN 400 MG CAPSULE (FP) PO SCH ×3 (06:39→21:02)
[2016-07-08] MEDS: INSULIN SLIDING SCALE (NOVOLOG) 1 VIAL SQ SCH ×2 (06:40→17:28)
[2016-07-08] MEDS: hydrALAZINE HCL 25 MG TABLET (FP) PO SCH ×2 (10:01→21:02)
[2016-07-08] MEDS: NIFEdipine E.R. 30 MG TABLET (FP) PO SCH (10:01)
[2016-07-08] MEDS: ASPIRIN 81 MG CHEWABLE TABLETS PO SCH (10:01)
[2016-07-08] MEDS: CLOPIDOGREL BISULFATE 75 MG TABLET (FP) PO SCH (10:01)
[2016-07-08] MEDS: BACITRACIN 0.9 GM PACKET TP SCH ×2 (10:01→21:02)
[2016-07-08] MEDS: NICOTINE 14 MG/24 HOURS TOPICAL PATCH TD SCH (10:02)
[2016-07-08] MEDS: PRENATAL VITAMINS W/ FOLIC ACID TABLET (FP) PO SCH (10:02)
[2016-07-08] MEDS: LIDOCAINE 5% TOPICAL PATCH TP SCH (10:02)
[2016-07-08] MEDS: ACETAMINOPHEN 325 MG TABLET (FP) PO PRN (10:05)
[2016-07-08] MEDS: FENOFIBRIC ACID 45 MG CAP PO SCH (10:06)
[2016-07-08] MEDS: AMMONIUM LACTATE 12% LOTION 225 GM BOTTLE TP PRN (16:52)
[2016-07-08] MEDS: THIAMINE HCL 100 MG TABLET (FP) PO SCH (21:01)
[2016-07-08] MEDS: MIRTAZAPINE 15 MG TABLET (FP) PO PRN (21:02)
[2016-07-09] MEDS: GABAPENTIN 400 MG CAPSULE (FP) PO SCH ×3 (06:43→21:05)
[2016-07-09] MEDS: metFORMIN HCL 500 MG TABLET (FP) PO SCH ×2 (06:43→16:33)
[2016-07-09] MEDS: INSULIN SLIDING SCALE (NOVOLOG) 1 VIAL SQ SCH ×2 (06:43→16:34)
[2016-07-09] MEDS: PRENATAL VITAMINS W/ FOLIC ACID TABLET (FP) PO SCH (10:12)
[2016-07-09] MEDS: hydrALAZINE HCL 25 MG TABLET (FP) PO SCH ×2 (10:13→21:06)
[2016-07-09] MEDS: ASPIRIN 81 MG CHEWABLE TABLETS PO SCH (10:13)
[2016-07-09] MEDS: BACITRACIN 0.9 GM PACKET TP SCH ×2 (10:13→21:06)
[2016-07-09] MEDS: NICOTINE 14 MG/24 HOURS TOPICAL PATCH TD SCH (10:13)
[2016-07-09] MEDS: NIFEdipine E.R. 30 MG TABLET (FP) PO SCH (10:13)
[2016-07-09] MEDS: CLOPIDOGREL BISULFATE 75 MG TABLET (FP) PO SCH (10:13)
[2016-07-09] MEDS: LIDOCAINE 5% TOPICAL PATCH TP SCH (10:13)
[2016-07-09] MEDS: FENOFIBRIC ACID 45 MG CAP PO SCH (10:14)
[2016-07-09] MEDS: ACETAMINOPHEN 325 MG TABLET (FP) PO PRN (10:16)
[2016-07-09] MEDS: MIRTAZAPINE 15 MG TABLET (FP) PO PRN (21:05)
[2016-07-09] MEDS: THIAMINE HCL 100 MG TABLET (FP) PO SCH (21:05)
[2016-07-10] MEDS: GABAPENTIN 400 MG CAPSULE (FP) PO SCH ×3 (06:49→21:07)
[2016-07-10] MEDS: metFORMIN HCL 500 MG TABLET (FP) PO SCH ×2 (06:49→16:47)
[2016-07-10] MEDS: INSULIN SLIDING SCALE (NOVOLOG) 1 VIAL SQ SCH ×2 (06:54→16:48)
[2016-07-10] MEDS: ASPIRIN 81 MG CHEWABLE TABLETS PO SCH (09:55)
[2016-07-10] MEDS: NIFEdipine E.R. 30 MG TABLET (FP) PO SCH (09:55)
[2016-07-10] MEDS: hydrALAZINE HCL 25 MG TABLET (FP) PO SCH ×2 (09:56→21:08)
[2016-07-10] MEDS: FENOFIBRIC ACID 45 MG CAP PO SCH (09:56)
[2016-07-10] MEDS: BACITRACIN 0.9 GM PACKET TP SCH ×2 (09:57→21:08)
[2016-07-10] MEDS: NICOTINE 14 MG/24 HOURS TOPICAL PATCH TD SCH (09:57)
[2016-07-10] MEDS: LIDOCAINE 5% TOPICAL PATCH TP SCH (09:57)
[2016-07-10] MEDS: ACETAMINOPHEN 325 MG TABLET (FP) PO PRN (09:58)
[2016-07-10] MEDS: CLOPIDOGREL BISULFATE 75 MG TABLET (FP) PO SCH (09:58)
[2016-07-10] MEDS: PRENATAL VITAMINS W/ FOLIC ACID TABLET (FP) PO SCH (10:02)
[2016-07-10] MEDS: diphenhydrAMINE HCL 50 MG CAPSULE PO PRN (21:08)
[2016-07-10] MEDS: THIAMINE HCL 100 MG TABLET (FP) PO SCH (21:08)
[2016-07-10] MEDS: MIRTAZAPINE 15 MG TABLET (FP) PO PRN (21:08)
[2016-07-11] MEDS: metFORMIN HCL 500 MG TABLET (FP) PO SCH ×2 (06:48→16:38)
[2016-07-11] MEDS: GABAPENTIN 400 MG CAPSULE (FP) PO SCH ×3 (06:48→21:32)
[2016-07-11] MEDS: INSULIN SLIDING SCALE (NOVOLOG) 1 VIAL SQ SCH ×2 (06:49→16:39)
[2016-07-11] MEDS: NIFEdipine E.R. 30 MG TABLET (FP) PO SCH (10:07)
[2016-07-11] MEDS: CLOPIDOGREL BISULFATE 75 MG TABLET (FP) PO SCH (10:07)
[2016-07-11] MEDS: PRENATAL VITAMINS W/ FOLIC ACID TABLET (FP) PO SCH (10:08)
[2016-07-11] MEDS: NICOTINE 14 MG/24 HOURS TOPICAL PATCH TD SCH (10:08)
[2016-07-11] MEDS: BACITRACIN 0.9 GM PACKET TP SCH ×2 (10:08→21:33)
[2016-07-11] MEDS: ASPIRIN 81 MG CHEWABLE TABLETS PO SCH (10:08)
[2016-07-11] MEDS: hydrALAZINE HCL 25 MG TABLET (FP) PO SCH ×2 (10:09→21:32)
[2016-07-11] MEDS: FENOFIBRIC ACID 45 MG CAP PO SCH (10:10)
[2016-07-11] MEDS: LIDOCAINE 5% TOPICAL PATCH TP SCH (10:10)
[2016-07-11] MEDS: ACETAMINOPHEN 325 MG TABLET (FP) PO PRN ×2 (14:15→21:33)
[2016-07-11] MEDS: THIAMINE HCL 100 MG TABLET (FP) PO SCH (21:32)
[2016-07-11] MEDS: diphenhydrAMINE HCL 50 MG CAPSULE PO PRN (21:32)
[2016-07-11] MEDS: MIRTAZAPINE 15 MG TABLET (FP) PO PRN (21:32)
[2016-07-12] MEDS: metFORMIN HCL 500 MG TABLET (FP) PO SCH ×2 (06:48→16:35)
[2016-07-12] MEDS: GABAPENTIN 400 MG CAPSULE (FP) PO SCH ×3 (06:48→21:23)
[2016-07-12] MEDS: INSULIN SLIDING SCALE (NOVOLOG) 1 VIAL SQ SCH ×2 (06:54→16:36)
[2016-07-12] MEDS: CLOPIDOGREL BISULFATE 75 MG TABLET (FP) PO SCH (10:01)
[2016-07-12] MEDS: ASPIRIN 81 MG CHEWABLE TABLETS PO SCH (10:01)
[2016-07-12] MEDS: FENOFIBRIC ACID 45 MG CAP PO SCH (10:02)
[2016-07-12] MEDS: BACITRACIN 0.9 GM PACKET TP SCH ×2 (10:02→21:23)
[2016-07-12] MEDS: hydrALAZINE HCL 25 MG TABLET (FP) PO SCH ×2 (10:02→21:23)
[2016-07-12] MEDS: NIFEdipine E.R. 30 MG TABLET (FP) PO SCH (10:02)
[2016-07-12] MEDS: PRENATAL VITAMINS W/ FOLIC ACID TABLET (FP) PO SCH (10:02)
[2016-07-12] MEDS: LIDOCAINE 5% TOPICAL PATCH TP SCH (10:03)
[2016-07-12] MEDS: NICOTINE 14 MG/24 HOURS TOPICAL PATCH TD SCH (10:03)
[2016-07-12] MEDS: diphenhydrAMINE HCL 50 MG CAPSULE PO PRN (21:24)
[2016-07-12] MEDS: THIAMINE HCL 100 MG TABLET (FP) PO SCH (21:24)
[2016-07-13] MEDS: metFORMIN HCL 500 MG TABLET (FP) PO SCH ×2 (06:10→16:43)
[2016-07-13] MEDS: GABAPENTIN 400 MG CAPSULE (FP) PO SCH ×3 (06:10→21:47)
[2016-07-13] MEDS: INSULIN SLIDING SCALE (NOVOLOG) 1 VIAL SQ SCH ×2 (06:36→16:43)
[2016-07-13] MEDS: FENOFIBRIC ACID 45 MG CAP PO SCH (09:49)
[2016-07-13] MEDS: ASPIRIN 81 MG CHEWABLE TABLETS PO SCH (09:49)
[2016-07-13] MEDS: hydrALAZINE HCL 25 MG TABLET (FP) PO SCH ×2 (09:49→21:47)
[2016-07-13] MEDS: PRENATAL VITAMINS W/ FOLIC ACID TABLET (FP) PO SCH (09:49)
[2016-07-13] MEDS: BACITRACIN 0.9 GM PACKET TP SCH ×2 (09:49→21:47)
[2016-07-13] MEDS: NIFEdipine E.R. 30 MG TABLET (FP) PO SCH (09:49)
[2016-07-13] MEDS: CLOPIDOGREL BISULFATE 75 MG TABLET (FP) PO SCH (09:49)
[2016-07-13] MEDS: NICOTINE 14 MG/24 HOURS TOPICAL PATCH TD SCH (09:50)
[2016-07-13] MEDS: LIDOCAINE 5% TOPICAL PATCH TP SCH (09:50)
[2016-07-13] MEDS: ACETAMINOPHEN 325 MG TABLET (FP) PO PRN (09:51)
[2016-07-13] MEDS: THIAMINE HCL 100 MG TABLET (FP) PO SCH (21:47)
[2016-07-13] MEDS: MIRTAZAPINE 15 MG TABLET (FP) PO PRN (21:49)
[2016-07-13] MEDS: diphenhydrAMINE HCL 50 MG CAPSULE PO PRN (21:49)
[2016-07-14] MEDS: GABAPENTIN 400 MG CAPSULE (FP) PO SCH ×3 (06:54→21:54)
[2016-07-14] MEDS: metFORMIN HCL 500 MG TABLET (FP) PO SCH ×2 (06:54→16:50)
[2016-07-14] MEDS: INSULIN SLIDING SCALE (NOVOLOG) 1 VIAL SQ SCH ×2 (06:55→16:50)
[2016-07-14] MEDS: ASPIRIN 81 MG CHEWABLE TABLETS PO SCH (10:15)
[2016-07-14] MEDS: BACITRACIN 0.9 GM PACKET TP SCH ×2 (10:15→21:55)
[2016-07-14] MEDS: CLOPIDOGREL BISULFATE 75 MG TABLET (FP) PO SCH (10:15)
[2016-07-14] MEDS: NIFEdipine E.R. 30 MG TABLET (FP) PO SCH (10:15)
[2016-07-14] MEDS: AMMONIUM LACTATE 12% LOTION 225 GM BOTTLE TP PRN (10:16)
[2016-07-14] MEDS: FENOFIBRIC ACID 45 MG CAP PO SCH (10:16)
[2016-07-14] MEDS: ACETAMINOPHEN 325 MG TABLET (FP) PO PRN (10:17)
[2016-07-14] MEDS: PRENATAL VITAMINS W/ FOLIC ACID TABLET (FP) PO SCH (10:18)
[2016-07-14] MEDS: LIDOCAINE 5% TOPICAL PATCH TP SCH (10:19)
[2016-07-14] MEDS: NICOTINE 14 MG/24 HOURS TOPICAL PATCH TD SCH (10:19)
[2016-07-14] MEDS: hydrALAZINE HCL 25 MG TABLET (FP) PO SCH ×2 (10:19→21:55)
[2016-07-14] MEDS: THIAMINE HCL 100 MG TABLET (FP) PO SCH (21:55)
[2016-07-15] MEDS: GABAPENTIN 400 MG CAPSULE (FP) PO SCH ×3 (06:26→21:07)
[2016-07-15] MEDS: metFORMIN HCL 500 MG TABLET (FP) PO SCH ×2 (06:26→16:40)
[2016-07-15] MEDS: ACETAMINOPHEN 325 MG TABLET (FP) PO PRN ×2 (06:27→10:25)
[2016-07-15] MEDS: INSULIN SLIDING SCALE (NOVOLOG) 1 VIAL SQ SCH ×2 (06:28→16:41)
[2016-07-15] MEDS: BACITRACIN 0.9 GM PACKET TP SCH ×2 (10:22→21:07)
[2016-07-15] MEDS: LIDOCAINE 5% TOPICAL PATCH TP SCH (10:22)
[2016-07-15] MEDS: CLOPIDOGREL BISULFATE 75 MG TABLET (FP) PO SCH (10:22)
[2016-07-15] MEDS: hydrALAZINE HCL 25 MG TABLET (FP) PO SCH ×2 (10:22→21:07)
[2016-07-15] MEDS: FENOFIBRIC ACID 45 MG CAP PO SCH (10:22)
[2016-07-15] MEDS: NIFEdipine E.R. 30 MG TABLET (FP) PO SCH (10:22)
[2016-07-15] MEDS: ASPIRIN 81 MG CHEWABLE TABLETS PO SCH (10:22)
[2016-07-15] MEDS: PRENATAL VITAMINS W/ FOLIC ACID TABLET (FP) PO SCH (10:22)
[2016-07-15] MEDS: NICOTINE 14 MG/24 HOURS TOPICAL PATCH TD SCH (10:23)
[2016-07-15] MEDS: NICOTINE POLACRILEX 2 MG GUM BC PRN (10:25)
[2016-07-15] MEDS: AMMONIUM LACTATE 12% LOTION 225 GM BOTTLE TP PRN (14:18)
[2016-07-15] MEDS: MIRTAZAPINE 15 MG TABLET (FP) PO PRN (21:07)
[2016-07-15] MEDS: THIAMINE HCL 100 MG TABLET (FP) PO SCH (21:07)
[2016-07-15] MEDS: diphenhydrAMINE HCL 50 MG CAPSULE PO PRN (21:07)
[2016-07-16] MEDS: GABAPENTIN 400 MG CAPSULE (FP) PO SCH ×3 (06:21→21:05)
[2016-07-16] MEDS: metFORMIN HCL 500 MG TABLET (FP) PO SCH ×2 (06:21→16:50)
[2016-07-16] MEDS: INSULIN SLIDING SCALE (NOVOLOG) 1 VIAL SQ SCH ×2 (06:22→16:50)
[2016-07-16] MEDS: BACITRACIN 0.9 GM PACKET TP SCH ×2 (10:07→21:06)
[2016-07-16] MEDS: CLOPIDOGREL BISULFATE 75 MG TABLET (FP) PO SCH (10:07)
[2016-07-16] MEDS: ASPIRIN 81 MG CHEWABLE TABLETS PO SCH (10:07)
[2016-07-16] MEDS: NIFEdipine E.R. 30 MG TABLET (FP) PO SCH (10:07)
[2016-07-16] MEDS: NICOTINE 14 MG/24 HOURS TOPICAL PATCH TD SCH (10:08)
[2016-07-16] MEDS: hydrALAZINE HCL 25 MG TABLET (FP) PO SCH ×2 (10:08→21:06)
[2016-07-16] MEDS: LIDOCAINE 5% TOPICAL PATCH TP SCH (10:08)
[2016-07-16] MEDS: FENOFIBRIC ACID 45 MG CAP PO SCH (10:09)
[2016-07-16] MEDS: PRENATAL VITAMINS W/ FOLIC ACID TABLET (FP) PO SCH (10:09)
[2016-07-16] MEDS: ACETAMINOPHEN 325 MG TABLET (FP) PO PRN (10:10)
[2016-07-16] MEDS: AMMONIUM LACTATE 12% LOTION 225 GM BOTTLE TP PRN (16:51)
[2016-07-16] MEDS: THIAMINE HCL 100 MG TABLET (FP) PO SCH (21:05)
[2016-07-16] MEDS: diphenhydrAMINE HCL 50 MG CAPSULE PO PRN (21:06)
[2016-07-17] MEDS: INSULIN SLIDING SCALE (NOVOLOG) 1 VIAL SQ SCH ×2 (07:37→17:06)
[2016-07-17] MEDS: metFORMIN HCL 500 MG TABLET (FP) PO SCH ×2 (07:37→16:56)
[2016-07-17] MEDS: GABAPENTIN 400 MG CAPSULE (FP) PO SCH ×3 (07:37→21:07)
[2016-07-17] MEDS: NICOTINE 14 MG/24 HOURS TOPICAL PATCH TD SCH (09:49)
[2016-07-17] MEDS: PRENATAL VITAMINS W/ FOLIC ACID TABLET (FP) PO SCH (09:49)
[2016-07-17] MEDS: ASPIRIN 81 MG CHEWABLE TABLETS PO SCH (09:49)
[2016-07-17] MEDS: BACITRACIN 0.9 GM PACKET TP SCH ×2 (09:49→21:10)
[2016-07-17] MEDS: LIDOCAINE 5% TOPICAL PATCH TP SCH (09:49)
[2016-07-17] MEDS: CLOPIDOGREL BISULFATE 75 MG TABLET (FP) PO SCH (09:49)
[2016-07-17] MEDS: FENOFIBRIC ACID 45 MG CAP PO SCH (09:49)
[2016-07-17] MEDS: hydrALAZINE HCL 25 MG TABLET (FP) PO SCH ×2 (09:50→21:08)
[2016-07-17] MEDS: NIFEdipine E.R. 30 MG TABLET (FP) PO SCH (09:50)
[2016-07-17] MEDS: THIAMINE HCL 100 MG TABLET (FP) PO SCH (21:06)
[2016-07-17] MEDS: diphenhydrAMINE HCL 50 MG CAPSULE PO PRN (21:07)
[2016-07-17] MEDS: MIRTAZAPINE 15 MG TABLET (FP) PO PRN (21:08)
[2016-07-18] MEDS: metFORMIN HCL 500 MG TABLET (FP) PO SCH ×2 (06:28→16:53)
[2016-07-18] MEDS: GABAPENTIN 400 MG CAPSULE (FP) PO SCH ×3 (06:29→21:10)
[2016-07-18] MEDS: INSULIN SLIDING SCALE (NOVOLOG) 1 VIAL SQ SCH ×2 (06:36→16:54)
[2016-07-18] MEDS: PRENATAL VITAMINS W/ FOLIC ACID TABLET (FP) PO SCH (09:54)
[2016-07-18] MEDS: BACITRACIN 0.9 GM PACKET TP SCH ×2 (09:54→21:10)
[2016-07-18] MEDS: ASPIRIN 81 MG CHEWABLE TABLETS PO SCH (09:54)
[2016-07-18] MEDS: NIFEdipine E.R. 30 MG TABLET (FP) PO SCH (09:54)
[2016-07-18] MEDS: NICOTINE 14 MG/24 HOURS TOPICAL PATCH TD SCH (09:55)
[2016-07-18] MEDS: hydrALAZINE HCL 25 MG TABLET (FP) PO SCH ×2 (09:55→21:10)
[2016-07-18] MEDS: LIDOCAINE 5% TOPICAL PATCH TP SCH (09:55)
[2016-07-18] MEDS: CLOPIDOGREL BISULFATE 75 MG TABLET (FP) PO SCH (09:55)
[2016-07-18] MEDS: FENOFIBRIC ACID 45 MG CAP PO SCH (09:56)
[2016-07-18] MEDS: MIRTAZAPINE 15 MG TABLET (FP) PO PRN (21:10)
[2016-07-18] MEDS: THIAMINE HCL 100 MG TABLET (FP) PO SCH (21:10)
[2016-07-18] MEDS: diphenhydrAMINE HCL 50 MG CAPSULE PO PRN (21:11)
[2016-07-19] MEDS: GABAPENTIN 400 MG CAPSULE (FP) PO SCH (06:31)
[2016-07-19] MEDS: metFORMIN HCL 500 MG TABLET (FP) PO SCH (06:31)
[2016-07-19] MEDS: INSULIN SLIDING SCALE (NOVOLOG) 1 VIAL SQ SCH (06:31)
[2016-07-19 06:50] VITALS: BP 125/69; PULSE 67; TEMP 97.6
--- NOTE | 2016-07-19 09:47 | PN ---
Psychiatric Progress Note Vital Signs: Vital Signs Period Temp Pulse Resp BP Sys/Portillo Pulse Ox Last 24 Hr 97.6 F 67-76 18-18 125-137/69-91 Date of Session: 07/19/16 Chief Complaint:: discharge visit HPI: Patient has addressed cocaine, cannabis, nicotine dependence comorbid Insomnia. ROS: CAD ( two stents the last one in 2010), HTN, High cholesterol, DM, Arthritis to both hands medically managed, S/P Choleccystectomy, S/P Laminectomy of C3,4,5 and reports chronic cervical pain and sciatica from cervical spine to legs. Current Medications: Active Medications Generic Name Dose Route Start Last Admin Trade Name Freq PRN Reason Stop Dose Admin Acetaminophen 650 mg 06/28/16 17:51 07/16/16 10:10 Tylenol - PO 650 mg Q4H PRN Administration PAIN Al Hydroxide/Mg Hydroxide 30 ml 06/28/16 17:51 Mylanta Oral Suspension - PO Q6H PRN DYSPEPSIA Aspirin 81 mg 06/29/16 10:00 07/18/16 09:54 Asa - PO 81 mg DAILY ELOINA Administration Bacitracin 0.9 gm 07/02/16 22:00 07/18/16 21:10 Bacitracin - TP 0.9 gm BID ELOINA Administration Clopidogrel Bisulfate 75 mg 06/29/16 10:00 07/18/16 09:55 Plavix - PO 75 mg DAILY ELOINA Administration Diphenhydramine HCl 50 mg 06/28/16 17:51 07/18/16 21:11 Benadryl - PO 50 mg HSMR1 PRN Administration INSOMNIA Eucalyptus/Menthol/Phenol/Sorbitol 1 each 06/28/16 17:51 Cepastat Lozenge - MM Q4H PRN SORE THROAT Fenofibric Acid 45 mg 06/28/16 18:30 07/18/16 09:56 Trilipix - PO 45 mg DAILY ELOINA Administration Gabapentin 800 mg 06/28/16 22:00 07/19/16 06:31 Neurontin - PO 800 mg TID ELOINA Administration Guaifenesin 10 ml 06/28/16 17:51 Robitussin Dm - PO Q6H PRN COUGH Hydralazine HCl 25 mg 06/28/16 22:00 07/18/16 21:10 Apresoline - PO 25 mg BID ELOINA Administration Hydroxyzine Pamoate 25 mg 06/28/16 17:51 Vistaril - PO Q4H PRN AGITATION Ibuprofen 400 mg 06/28/16 17:51 Motrin - PO Q6H PRN SEVERE PAIN Insulin Aspart 1 vial 06/29/16 07:00 07/19/16 06:31 Novolog Vial Sliding Scale - SQ Not Given BIDAC ELOINA Protocol Lactic Acid 1 applic 07/01/16 13:18 07/16/16 16:51 Lac-Hydrin 12 TP 1 applic BID PRN Administration DRY SKIN Lidocaine 1 patch 06/30/16 10:00 07/18/16 09:55 Lidoderm Patch - TP 1 patch DAILY ELOINA Administration Loperamide HCl 4 mg 06/28/16 17:51 Imodium - PO Q6H PRN DIARRHEA Magnesium Citrate 300 ml 06/28/16 17:51 Citroma - PO Q48H PRN CONSTIPATION Magnesium Hydroxide 30 ml 06/28/16 17:51 Milk Of Magnesia - PO DAILY PRN CONSTIPATION Metformin HCl 500 mg 06/29/16 07:00 07/19/16 06:31 Glucophage - PO 500 mg BID@0700,1630 ELOINA Administration Mirtazapine 15 mg 06/29/16 14:33 07/18/16 21:10 Remeron - PO 15 mg HS PRN Administration INSOMNIA Nicotine 14 mg 06/28/16 18:30 07/18/16 09:55 Nicoderm Patch - TD Not Given DAILY ELOINA Nicotine Polacrilex 2 mg 06/28/16 17:51 07/15/16 10:25 Nicorette Gum - BC 2 mg Q2H PRN Administration NICOTINE REPLACEMENT RX Nifedipine 30 mg 06/29/16 10:00 07/18/16 09:54 Procardia Xl - PO 30 mg DAILY ELOINA Administration Multivit/Folic Acid/Iron 1 tab 06/29/16 10:00 07/18/16 09:54 Vitamins (Sjr) - PO 1 tab DAILY ELOINA Administration Pseudoephedrine/Triprolidine 1 combo 06/28/16 17:51 Actifed - PO TID PRN NASAL CONGESTION Thiamine HCl 100 mg 06/28/16 22:00 07/18/16 21:10 Vitamin B1 - PO 100 mg HS ELOINA Administration Current Side Effect: No Lab tests ordered: No Lab tests reviewed: Yes Provider note:: Patient has completed today his treatmant and met his goals, will continue to address his at [facility] outpatient treatment program. Patient focused on improtance of changing attitude for the utilization of supports to prevent relapses. Patient is motivated to continue maintain abstinence. Remeron well tolerated, scripts ptovided, patient isstable for discharge. Total face to face time:: 30 Mental Status Exam - Mental Status Exam Alert and Oriented to: Time, Place, Person Cognitive Function: Grossly Intact Patient Appearance: Well Groomed Mood: Hopeful Affect: Appropriate, Mood Congruent Patient Behavior: Appropriate, Cooperative Speech Pattern: Clear, Appropriate Voice Loudness: Normal Thought Process: Intact, Goal Oriented Thought Disorder: Not Present Hallucinations: Denies Suicidal Ideation: Denies Homicidal Ideation: Denies Insight/Judgement: Fair Sleep: Fair Appetite: Fair Muscle strength/Tone: Normal Gait/Station: Normal Psychiatric Treatment Plan - Problem List (1) Back pain Current Visit: Yes Qualifiers: Chronicity: chronic Back pain laterality: midline Sciatica laterality: bilateral sciatica Comment: PAIN OF WHOLE SPINE (2) CAD (coronary artery disease) Current Visit: Yes Qualifiers: Coronary Disease-Associated Artery/Lesion type: bypass graft [place] vs. transplanted heart: [place] heart (3) Cannabis dependence Current Visit: Yes (4) Cocaine dependence Current Visit: Yes Qualifiers: Substance use status: uncomplicated Qualified Code(s): F14.20 - Cocaine dependence, uncomplicated (5) Diabetes mellitus Current Visit: Yes Qualifiers: Diabetes mellitus type: type 2 Diabetes mellitus complication status: without complication (6) Hypertension Current Visit: Yes Qualifiers: Hypertension type: essential hypertension Qualified Code(s): I10 - Essential (primary) hypertension (7) Nicotine dependence Current Visit: Yes Qualifiers: Nicotine product type: cigarettes Substance use status: uncomplicated Qualified Code(s): F17.210 - Nicotine dependence, cigarettes, uncomplicated (8) Insomnia Current Visit: Yes
[2016-07-19] MEDS: ASPIRIN 81 MG CHEWABLE TABLETS PO SCH (09:48)
[2016-07-19] MEDS: hydrALAZINE HCL 25 MG TABLET (FP) PO SCH (09:48)
[2016-07-19] MEDS: LIDOCAINE 5% TOPICAL PATCH TP SCH (09:48)
[2016-07-19] MEDS: FENOFIBRIC ACID 45 MG CAP PO SCH (09:48)
[2016-07-19] MEDS: BACITRACIN 0.9 GM PACKET TP SCH (09:48)
[2016-07-19] MEDS: NIFEdipine E.R. 30 MG TABLET (FP) PO SCH (09:48)
[2016-07-19] MEDS: PRENATAL VITAMINS W/ FOLIC ACID TABLET (FP) PO SCH (09:48)
[2016-07-19] MEDS: NICOTINE 14 MG/24 HOURS TOPICAL PATCH TD SCH (09:49)
[2016-07-19] MEDS: ACETAMINOPHEN 325 MG TABLET (FP) PO PRN (09:49)
[2016-07-19] MEDS: CLOPIDOGREL BISULFATE 75 MG TABLET (FP) PO SCH (09:49)
== END 2016-07-19 10:50 | disposition home or self-care (01) | DRG 772 ==
LOC: YASAS 14:24 → Y5N 18:05
PROVIDERS: ADMIT Psychiatry & Neurology Psychiatry; ATTEND Psychiatry & Neurology Psychiatry
PROC: HZ42ZZZ Group Counseling for Substance Abuse Treatment, Cognitive-Behavioral (ICD-10-PCS; principal; 2016-07-19)
DX: F14.20 Cocaine dependence, uncomplicated (principal); F12.20 Cannabis dependence, uncomplicated; F17.210 Nicotine dependence, cigarettes, uncomplicated; F16.10 Hallucinogen abuse, uncomplicated; I25.10 Atherosclerotic heart disease of native coronary artery without angina pectoris; I10 Essential (primary) hypertension; M54.5 Low back pain; M54.41 Lumbago with sciatica, right side; M54.42 Lumbago with sciatica, left side; G47.00 Insomnia, unspecified; L85.3 Xerosis cutis
CPT/HCPCS: 36415; 80053; 81003; 85027; 86593; 93005; 93010

== ENCOUNTER 2017-03-21 11:50 | Inpatient (IN) | payer BC ==
[2017-03-21 13:46] VITALS: BMI 27.7
--- NOTE | 2017-03-21 15:20 | HP ---
Admission [facility] Chief Complaint: I want to be here for rehab treatment. Allergies/Adverse Reactions: Allergies Allergy/AdvReac Type Severity Reaction Status Date / Time No Known Drug Allergies Allergy Verified 03/21/17 14:21 lactose AdvReac bloating Verified 03/21/17 14:21 and gas red sauce Allergy Intermediate Hives Uncoded 03/21/17 14:21 RED MEAT Allergy Mild Hives Uncoded 03/21/17 14:21 History of Present Illness: pt is a 56yr old male with a history of cannabis and cocaine dependence seeking rehab for treatment. Exam Limitations: No Limitations - Ebola screening Have you traveled outside of the country in the last 21 days: No Have you had contact with anyone from an Ebola affected area: No Have you been sick,other than usual withdrawal symptoms: No Do you have a fever: No - Review of Systems Constitutional: No Symptoms Reported EENT: reports: No Symptoms Reported Respiratory: reports: No Symptoms reported GI: reports: No Symptoms Reported : reports: No Symptoms Reported Musculoskeletal: reports: Back Pain Integumentary: reports: No Symptoms Reported Neuro: reports: No Symptoms reported Endocrine: reports: No Symptoms Reported Hematology: reports: No Symptoms Reported Psychiatric: reports: Judgement Intact, Mood/Affect Appropiate, Orientated x3, Agitated Other Systems: Reviewed and Negative Patient History - Patient Medical History Hx Anemia: No Hx Asthma: No Hx Chronic Obstructive Pulmonary Disease (COPD): No Hx Cancer: No Hx Cardiac Disorders: Yes (stents x2) Hx Congestive Heart Failure: No Hx Hypertension: Yes Hx Hypercholesterolemia: Yes (ON MEDS) Hx Pacemaker: No HX Cerebrovascular Accident: No Hx Seizures: No Hx Dementia: No Hx Diabetes: Yes (NIDDM) Hx Gastrointestinal Disorders: No Hx Liver Disease: No Hx Genitourinary Disorders: No Hx Sexually Transmitted Disorders: No Hx Renal Disease (ESRD): No Hx Thyroid Disease: No Hx Human Immunodeficiency Virus (HIV): No (NEGATIVE HX) Hx Hepatitis C: No Hx Depression: Yes Hx Suicide Attempt: No Hx Bipolar Disorder: No Hx Schizophrenia: No Other Medical History: insomnia - Patient Surgical History Past Surgical History: No Hx Neurologic Surgery: No Hx Cataract Extraction: No Hx Cardiac Surgery: Yes (CARDIAC STENTS #2 in 2010) Hx Lung Surgery: No Hx Breast Surgery: No Hx Breast Biopsy: No Hx Abdominal Surgery: No Hx Appendectomy: No Hx Cholecystectomy: Yes (02/22) Hx Genitourinary Surgery: No Hx Section: No Hx Orthopedic Surgery: Yes (S/P LAMINECTOMY C3,4,5 2004) Hx Hysterectomy: No Other Surgical History: CHRONIC CERVICAL PAIN Anesthesia Reaction: No - PPD History Previous Implant?: Yes Documented Results: Negative w/o proof Implanted On Prior [facility] Admission?: Yes Results: 0 mm PPD to be Administered?: Yes - Reproductive History Patient is a Female of Child Bearing Age (11 -55 yrs old): No - Smoking Cessation Smoking history: Current some day smoker Have you smoked in the past 12 months: Yes Aproximately how many cigarettes per day: 2 Cigars Per Day: 0 Hx Chewing Tobacco Use: No Initiated information on smoking cessation: Yes 'Breaking Loose' booklet given: 03/21/17 - Substance & Tx. History Hx Alcohol Use: No Hx Substance Use: Yes Substance Use Type: Cocaine, Marijuana Hx Substance Use Treatment: No - Substances Abused Cocaine Route: Smoking Frequency: 3-6 times per week Amount used: $100 Age of first use: 29 Date of Last Use: 03/19/17 Marijuana Route: Smoking Frequency: 3-6 times per week Amount used: $20 Age of first use: 15 Date of Last Use: 03/19/17 Family Disease History - Family Disease History Family Disease History: [place]: Father (alzheimers,ALCOHOL), Other: Father, Mother ( ALCOHOL, HTN), Brother (aneurysm ) Admission Physical Exam [facility] - Vital Signs Vital Signs: Vital Signs - 24 hr 03/21/17 13:42 Temperature 96.2 F L Pulse Rate 70 Respiratory 20 Rate Blood Pressure 129/98 - Physical General Appearance: Yes: Appropriately Dressed, Moderate Distress, Anxious HEENTM: Yes: Hearing grossly Normal, Normal Voice Respiratory: Yes: Lungs Clear, Normal Breath Sounds, No Respiratory Distress Neck: Yes: Within Normal Limits Breast: Yes: Within Normal Limits Cardiology: Yes: Regular Rhythm, Regular Rate, S1, S2 Abdominal: Yes: Normal Bowel Sounds Genitourinary: Yes: Within Normal Limits Back: Yes: Normal Inspection Musculoskeletal: Yes: full range of Motion Extremities: Yes: Normal Capillary Refill, Normal Inspection, Non-Tender, Tremors Neurological: Yes: Fully Oriented, Alert, Normal Response Integumentary: Yes: Normal Color Lymphatic: Yes: Within Normal Limits - Diagnostic (1) Cannabis dependence Current Visit: Yes Status: Chronic (2) Cocaine dependence Current Visit: Yes Status: Chronic Qualifiers: Substance use status: uncomplicated Qualified Code(s): F14.20 - Cocaine dependence, uncomplicated (3) Hypertension Current Visit: Yes Status: Chronic Qualifiers: Hypertension type: essential hypertension Qualified Code(s): I10 - Essential (primary) hypertension (4) Nicotine dependence Current Visit: Yes Status: Chronic Qualifiers: Nicotine product type: cigarettes Substance use status: uncomplicated Qualified Code(s): F17.210 - Nicotine dependence, cigarettes, uncomplicated Cleared for Admission [facility] - Detox or Rehab [facility] Level of Care: Medically Managed Claeared for Rehab Admission: Yes [facility] Breath Alcohol Content Breath Alcohol Content: 0 Urine Drug Screen - Results Drug Screen Negative: No Urine Drug Screen Results: THC-Marijuana, JAMAAL-Cocaine Inpatient Rehab Admission - Initial Determination Not in need of hospitalization: Yes - Rehab Admission Criteria Poor recovery environment: Yes
[2017-03-21] MEDS ORDERED: MAG HYDROX/AL HYDROX/SIMETH 30 ML UNIT-DOSE CUP PO PRN (15:25)
[2017-03-21] MEDS ORDERED: ACETAMINOPHEN 325 MG TABLET (FP) PO PRN (15:25)
[2017-03-21] MEDS ORDERED: MAGNESIUM CITRATE 300 ML BOTTLE PO PRN (15:25)
[2017-03-21] MEDS ORDERED: LOPERAMIDE HCL 2 MG CAPSULE PO PRN (15:25)
[2017-03-21] MEDS ORDERED: MAGNESIUM HYDROX 2400MG/30ML ORAL SUSPENSION 30 ML CUP PO PRN (15:25)
[2017-03-21] MEDS ORDERED: MENTHOL/PHENOL 1 EACH UD MM PRN (15:25)
[2017-03-21] MEDS ORDERED: NICOTINE POLACRILEX 4 MG GUM BC PRN (15:25)
[2017-03-21] MEDS ORDERED: IBUPROFEN 400 MG TABLET (FP) PO PRN (15:25)
[2017-03-21] MEDS ORDERED: guaiFENesin/D-METHORPHAN HB 10 ML UNIT-DOSE CUPS PO PRN (15:25)
[2017-03-21] MEDS ORDERED: P-EPHED 60MG/TRIPROLIDI 2.5MG TABLET PO PRN (15:25)
[2017-03-21 17:36] LABS: MCH 31.1 pg (25.7-33.7); MCHC 33.5 g/dl (32.0-35.9); MEAN CELL VOLUME 92.7 fl (80-96); MEAN PLT VOLUME 9.8 fl (7.5-11.1); PLATELET COUNT 154 K/MM3 (134-434)
[2017-03-21 17:54] LABS: ALBUMIN 3.4 g/dl (3.4-5.0); ANION GAP 5 (8-16); BILIRUBIN,TOTAL 0.4 mg/dL (0.2-1.0); CALCIUM 8.4 mg/dL (8.5-10.1); CO2 28 mmol/L (21-32); CREATININE 1.1 mg/dL (0.7-1.3); GLUCOSE,RANDOM 83 mg/dL (74-106); SGOT/AST 11 U/L (15-37); SGPT/ALT 16 U/L (12-78); TOT PROT 6.7 g/dl (6.4-8.2)
[2017-03-21 17:55] LABS: ALK PHOS 124 U/L (45-117)
[2017-03-21] MEDS ORDERED: TUBERCULIN PPD 5 TU/0.1ML VIAL ID ONE (19:49)
[2017-03-21] MEDS: COLLOIDAL OATMEAL 1 BAR EACH TP PRN (20:45)
[2017-03-21] MEDS: AMMONIUM LACTATE 12% LOTION 225 GM BOTTLE TP PRN (20:45)
[2017-03-21] MEDS: THIAMINE HCL 100 MG TABLET (FP) PO SCH (21:31)
[2017-03-22] MEDS: hydrOXYzine PAMOATE 50 MG CAPSULE (FP) PO PRN (01:31)
--- NOTE | 2017-03-22 06:37 | HP ---
Psychiatrist Admission - Data Date of interview: 03/22/17 Admission source: Self-referred Identifying data: This is one of the multiple [facility] admission for this 56 years old single Black male, unemployed with no source of income, domiciled living in an apt in the [place] Medical History: Significant for hypertension, hyperlipidemia, type 2 diabetes mellitus, cad with 2 stents in 2010, chronic cervical pain and a history of neurosurgery for laminectomy c3,4,5 in 2004. Smokes 2 cigarettes daily Psychiatric History: Denies history of previous psychiatric illness. However, reports previous psychiatric contact for the treatment of insomnia while on inpatient detox in this facility. He was prescribed Remeron 15 mg po HS on more than one occasion for insomnia. Reports being prescribed Klonopin 2 mg po BID for anxiety by his primary care physician. Physical/Sexual Abuse/Trauma History: Denies history of verbal, physical or sexual abuse. No service Additional Comment: Denies criminal history Vital Signs: Vital Signs - 24 hr 03/21/17 03/22/17 13:42 03:30 Temperature 96.2 F L Pulse Rate 70 Respiratory 20 18 Rate Blood Pressure 129/98 Allergies/Adverse Reactions: Allergies Allergy/AdvReac Type Severity Reaction Status Date / Time No Known Drug Allergies Allergy Verified 03/21/17 14:21 lactose AdvReac bloating Verified 03/21/17 14:21 and gas red sauce Allergy Intermediate Hives Uncoded 03/21/17 14:21 RED MEAT Allergy Mild Hives Uncoded 03/21/17 14:21 Date of last physical exam: 03/21/17 Concur with the findings of this exam: Yes - Substance Abuse/Tx History Hx Alcohol Use: No Hx Substance Use: Yes Substance Use Type: Cocaine (Started smoking crack cocaine at age 29, consumes $ 100 worth 3-6 times weekly. Last smoked on 03/19/17), Marijuana (Started smoking marijuana at age 15, consumes $20 worth 3-6 times weeklt. Last smoked on 03/19/17 ) Hx Substance Use Treatment: Yes (4 previous inpt detox & 8 inpt rehab admission @ [facility]) Mental Status Exam - Mental Status Exam Alert and Oriented to: Time, Place, Person Cognitive Function: Fair Patient Appearance: Well Groomed Mood: Irritable Affect: Appropriate Patient Behavior: Cooperative Speech Pattern: Clear Voice Loudness: Normal Thought Process: Intact, Goal Oriented Thought Disorder: Not Present Hallucinations: Denies Suicidal Ideation: Denies Homicidal Ideation: Denies Insight/Judgement: Fair Sleep: Poorly Appetite: Good Muscle strength/Tone: Normal Gait/Station: Normal Psychiatric Findings - Problem List ([place] 1, 2,3) (1) Cocaine dependence Current Visit: Yes Status: Acute Qualifiers: Substance use status: uncomplicated Qualified Code(s): F14.20 - Cocaine dependence, uncomplicated (2) Cannabis dependence Current Visit: Yes Status: Acute (3) Nicotine dependence Current Visit: Yes Status: Chronic Qualifiers: Nicotine product type: cigarettes Substance use status: uncomplicated Qualified Code(s): F17.210 - Nicotine dependence, cigarettes, uncomplicated (4) Substance induced mood disorder Current Visit: Yes Status: Acute (5) Substance-induced sleep disorder Current Visit: Yes Status: Acute (6) Hypertension Current Visit: Yes Status: Chronic Qualifiers: Hypertension type: essential hypertension Qualified Code(s): I10 - Essential (primary) hypertension (7) Back pain Current Visit: No Status: Chronic Qualifiers: Chronicity: chronic Back pain laterality: midline Sciatica laterality: bilateral sciatica Comment: PAIN OF WHOLE SPINE (8) CAD (coronary artery disease) Current Visit: No Status: Chronic Qualifiers: Coronary Disease-Associated Artery/Lesion type: bypass graft [place] vs. transplanted heart: [place] heart (9) Diabetes mellitus Current Visit: No Status: Chronic Qualifiers: Diabetes mellitus type: type 2 Diabetes mellitus complication status: without complication (10) Obesity Current Visit: No Status: Chronic (11) Xerosis of skin Current Visit: No Status: Chronic (12) Dyslipidemia Current Visit: Yes Status: Acute - Initial Treatment Plan Initial Treatment Plan: 1) Start Remeron 15 mg po HS. 2) Monitor progress
[2017-03-22] MEDS: PRENATAL VITAMINS W/ FOLIC ACID TABLET (FP) PO SCH (10:13)
[2017-03-22] MEDS: NICOTINE 7 MG/24 HOURS TOPICAL PATCH TD SCH (10:13)
[2017-03-22] MEDS: OMEGA-3 ACID ETHYL ESTERS (FATTY-ACIDS) 1 GM CAPSULE (FP) PO SCH (10:33)
[2017-03-22] MEDS: PATIENT'S OWN MEDICATION (NON-FORMULARY) (Isosorbide Mononitrate [Isosorbide Mononitrate E PO SCH (11:13)
[2017-03-22] MEDS: CLOPIDOGREL BISULFATE PO SCH (11:14)
[2017-03-22] MEDS: ASPIRIN PO SCH (11:14)
[2017-03-22] MEDS: FENOFIBRATE 54 MG PO SCH (11:15)
[2017-03-22] MEDS: NIFEDIPINE 30 MG PO SCH (11:15)
[2017-03-22] MEDS: GABAPENTIN 400 MG CAPSULE (FP) PO SCH ×2 (11:18→15:25)
[2017-03-22] MEDS ORDERED: PT OWN MED DRAWER 7, Y5N ONE (11:34)
[2017-03-22 13:39] LABS: URINE APPEARANCE SLCLOUDY; URINE BILIRUBIN NEGATIVE (NEGATIVE); URINE BLOOD NEGATIVE (NEGATIVE); URINE COLOR YELLOW; URINE GLUCOSE (UA) NEGATIVE (NEGATIVE); URINE KETONE NEGATIVE (NEGATIVE); URINE LEUK ESTERASE TRACE (NEGATIVE); URINE NITRITE NEGATIVE (NEGATIVE); URINE PROTEIN NEGATIVE (NEGATIVE); URINE UROBILINOGEN NEGATIVE mg/dL (0.2-1.0)
[2017-03-22 13:50] LABS: CALCIUM OXALATE CRYSTALS FEW /hpf (NONE SEEN); URINE MUCUS FEW; URINE RBC <1 /hpf (0-3); URINE WBC 2 /hpf (3-5)
--- NOTE | 2017-03-22 14:17 | EKG ---
Test Reason : Blood Pressure : / mmHG Vent. Rate : 077 BPM Atrial Rate : 077 BPM P-R Int : 184 ms QRS Dur : 108 ms QT Int : 388 ms P-R-T Axes : 065 -41 -14 degrees QTc Int : 439 ms SINUS RHYTHM WITH FREQUENT PREMATURE VENTRICULAR COMPLEXES LEFT AXIS DEVIATION MODERATE VOLTAGE CRITERIA FOR LVH, MAY BE NORMAL VARIANT ABNORMAL ECG WHEN COMPARED WITH ECG OF 28-JUN-2016 22:08, PREMATURE VENTRICULAR COMPLEXES ARE NOW PRESENT Confirmed by AURELIANO POLANCO MD ([id number]) on 03/22/2017 2:16:58 PM Referred By: Confirmed By:AURELIANO POLANCO MD
[2017-03-22] MEDS: GABAPENTIN 800 MG PO SCH ×2 (14:34→21:57)
[2017-03-22 21:49] LABS: URINE LEUK ESTERASE NEGATIVE (NEGATIVE)
[2017-03-22] MEDS: THIAMINE HCL 100 MG TABLET (FP) PO SCH (21:56)
[2017-03-22] MEDS: GABAPENTIN 100 MG CAPSULE (FP) PO SCH (21:56)
[2017-03-22] MEDS: MIRTAZAPINE 15 MG TABLET (FP) PO SCH (21:56)
[2017-03-23] MEDS: GABAPENTIN 100 MG CAPSULE (FP) PO SCH ×3 (05:57→21:37)
[2017-03-23] MEDS: GABAPENTIN 800 MG PO SCH ×3 (05:57→21:36)
--- NOTE | 2017-03-23 09:18 | PN ---
S Progress Note (SOAP) Subjective: does not want to have metformin or continue with finger sticks as dm now controlled with wt loss of 30lbs and diet. c/o pain in neck and peripheral neuropathy iporved with increase in neurontin dose requesting lidocaine patch Objective: 03/23/17 09:17 Vital Signs - 24 hr 03/23/17 03/23/17 03/23/17 00:30 03:30 06:53 Temperature 98.3 F Pulse Rate 65 Respiratory 18 18 18 Rate Blood Pressure 133/88 Laboratory Tests 03/21/17 03/21/17 03/21/17 11:40 14:58 15:00 WBC 3.0 L RBC 4.47 Hgb 13.9 Hct 41.5 MCV 92.7 MCH 31.1 MCHC 33.5 RDW 14.0 Plt Count 154 MPV 9.8 Sodium Potassium Chloride Carbon Dioxide Anion Gap BUN Creatinine Creat Clearance w eGFR POC Glucometer 96 Random Glucose Calcium Total Bilirubin AST ALT Alkaline Phosphatase Total Protein Albumin Urine Color Yellow Urine Appearance Slcloudy Urine pH 5.0 Ur Specific [place] 1.020 Urine Protein Negative Urine Glucose (UA) Negative Urine Ketones Negative Urine Blood Negative Urine Nitrite Negative Urine Bilirubin Negative Urine Urobilinogen Negative Ur Leukocyte Esterase Negative Urine WBC (Auto) 2 Urine RBC (Auto) <1 Ur Epithelial Cells Rare Calcium Oxalate Crystal Few Urine Mucus Few RPR Titer 03/21/17 03/21/17 03/22/17 15:00 15:00 06:18 WBC RBC Hgb Hct MCV MCH MCHC RDW Plt Count MPV Sodium 143 Potassium 4.2 Chloride 110 H Carbon Dioxide 28 Anion Gap 5 L BUN 13 Creatinine 1.1 D Creat Clearance w eGFR > 60 POC Glucometer 97 Random Glucose 83 Calcium 8.4 L Total Bilirubin 0.4 AST 11 L ALT 16 Alkaline Phosphatase 124 H Total Protein 6.7 Albumin 3.4 Urine Color Urine Appearance Urine pH Ur Specific [place] Urine Protein Urine Glucose (UA) Urine Ketones Urine Blood Urine Nitrite Urine Bilirubin Urine Urobilinogen Ur Leukocyte Esterase Urine WBC (Auto) Urine RBC (Auto) Ur Epithelial Cells Calcium Oxalate Crystal Urine Mucus RPR Titer Nonreactive 03/22/17 03/23/17 16:59 05:56 WBC RBC Hgb Hct MCV MCH MCHC RDW Plt Count MPV Sodium Potassium Chloride Carbon Dioxide Anion Gap BUN Creatinine Creat Clearance w eGFR POC Glucometer 91 86 Random Glucose Calcium Total Bilirubin AST ALT Alkaline Phosphatase Total Protein Albumin Urine Color Urine Appearance Urine pH Ur Specific [place] Urine Protein Urine Glucose (UA) Urine Ketones Urine Blood Urine Nitrite Urine Bilirubin Urine Urobilinogen Ur Leukocyte Esterase Urine WBC (Auto) Urine RBC (Auto) Ur Epithelial Cells Calcium Oxalate Crystal Urine Mucus RPR Titer glucose well controlled Assessment: 03/23/17 09:17 d/c metformin and bgm, increase neurontin to 900mg tid, start lidocaine patch
[2017-03-23] MEDS: NICOTINE 7 MG/24 HOURS TOPICAL PATCH TD SCH (10:18)
[2017-03-23] MEDS: PRENATAL VITAMINS W/ FOLIC ACID TABLET (FP) PO SCH (10:18)
[2017-03-23] MEDS: CLOPIDOGREL BISULFATE PO SCH (10:18)
[2017-03-23] MEDS: NIFEDIPINE 30 MG PO SCH (10:18)
[2017-03-23] MEDS: OMEGA-3 ACID ETHYL ESTERS (FATTY-ACIDS) 1 GM CAPSULE (FP) PO SCH (10:18)
[2017-03-23] MEDS: LIDOCAINE 5% TOPICAL PATCH TP SCH (10:18)
[2017-03-23] MEDS: ASPIRIN PO SCH (10:19)
[2017-03-23] MEDS: PATIENT'S OWN MEDICATION (NON-FORMULARY) (Isosorbide Mononitrate [Isosorbide Mononitrate E PO SCH (10:19)
[2017-03-23] MEDS: FENOFIBRATE 54 MG PO SCH (10:19)
[2017-03-23] MEDS: MIRTAZAPINE 15 MG TABLET (FP) PO SCH (21:37)
[2017-03-23] MEDS: THIAMINE HCL 100 MG TABLET (FP) PO SCH (21:37)
[2017-03-23] MEDS: LIDOCAINE PATCH REMOVAL MC SCH (22:04)
[2017-03-24] MEDS: GABAPENTIN 100 MG CAPSULE (FP) PO SCH ×3 (06:15→21:12)
[2017-03-24] MEDS: GABAPENTIN 800 MG PO SCH ×3 (06:15→21:12)
[2017-03-24] MEDS: NIFEDIPINE 30 MG PO SCH (10:54)
[2017-03-24] MEDS: FENOFIBRATE 54 MG PO SCH (10:54)
[2017-03-24] MEDS: PATIENT'S OWN MEDICATION (NON-FORMULARY) (Isosorbide Mononitrate [Isosorbide Mononitrate E PO SCH (10:54)
[2017-03-24] MEDS: OMEGA-3 ACID ETHYL ESTERS (FATTY-ACIDS) 1 GM CAPSULE (FP) PO SCH (10:54)
[2017-03-24] MEDS: ASPIRIN PO SCH (10:54)
[2017-03-24] MEDS ORDERED: PT OWN MED DRAWER 7, Y5N ONE ×3 (10:55→11:20)
[2017-03-24] MEDS: CLOPIDOGREL BISULFATE PO SCH (10:55)
[2017-03-24] MEDS: PRENATAL VITAMINS W/ FOLIC ACID TABLET (FP) PO SCH (10:57)
[2017-03-24] MEDS: LIDOCAINE 5% TOPICAL PATCH TP SCH (10:58)
[2017-03-24] MEDS: NICOTINE 7 MG/24 HOURS TOPICAL PATCH TD SCH (10:58)
[2017-03-24] MEDS: MIRTAZAPINE 15 MG TABLET (FP) PO SCH (21:12)
[2017-03-24] MEDS: THIAMINE HCL 100 MG TABLET (FP) PO SCH (21:12)
[2017-03-24] MEDS: LIDOCAINE PATCH REMOVAL MC SCH (21:12)
[2017-03-25] MEDS: GABAPENTIN 800 MG PO SCH ×3 (06:16→21:48)
[2017-03-25] MEDS: GABAPENTIN 100 MG CAPSULE (FP) PO SCH ×3 (06:16→21:47)
[2017-03-25] MEDS ORDERED: PT OWN MED DRAWER 7, Y5N ONE ×4 (08:59→21:49)
[2017-03-25] MEDS: LIDOCAINE 5% TOPICAL PATCH TP SCH (10:16)
[2017-03-25] MEDS: PRENATAL VITAMINS W/ FOLIC ACID TABLET (FP) PO SCH (10:17)
[2017-03-25] MEDS: NIFEDIPINE 30 MG PO SCH (10:17)
[2017-03-25] MEDS: CLOPIDOGREL BISULFATE PO SCH (10:17)
[2017-03-25] MEDS: FENOFIBRATE 54 MG PO SCH (10:17)
[2017-03-25] MEDS: OMEGA-3 ACID ETHYL ESTERS (FATTY-ACIDS) 1 GM CAPSULE (FP) PO SCH (10:17)
[2017-03-25] MEDS: PATIENT'S OWN MEDICATION (NON-FORMULARY) (Isosorbide Mononitrate [Isosorbide Mononitrate E PO SCH (10:17)
[2017-03-25] MEDS: NICOTINE 7 MG/24 HOURS TOPICAL PATCH TD SCH (10:18)
[2017-03-25] MEDS ORDERED: ASPIRIN 81 MG CHEWABLE TABLETS ONE (10:20)
[2017-03-25] MEDS: ASPIRIN PO SCH (10:21)
[2017-03-25] MEDS: THIAMINE HCL 100 MG TABLET (FP) PO SCH (21:45)
[2017-03-25] MEDS: LIDOCAINE PATCH REMOVAL MC SCH (21:46)
[2017-03-25] MEDS: MIRTAZAPINE 15 MG TABLET (FP) PO SCH (21:48)
[2017-03-25] MEDS: AMMONIUM LACTATE 12% LOTION 225 GM BOTTLE TP PRN (21:49)
[2017-03-26] MEDS: GABAPENTIN 100 MG CAPSULE (FP) PO SCH ×3 (06:41→21:54)
[2017-03-26] MEDS: GABAPENTIN 800 MG PO SCH ×3 (06:42→21:55)
[2017-03-26] MEDS: FENOFIBRATE 54 MG PO SCH (10:04)
[2017-03-26] MEDS: NICOTINE 7 MG/24 HOURS TOPICAL PATCH TD SCH (10:04)
[2017-03-26] MEDS: CLOPIDOGREL BISULFATE PO SCH (10:05)
[2017-03-26] MEDS: NIFEDIPINE 30 MG PO SCH (10:05)
[2017-03-26] MEDS: PATIENT'S OWN MEDICATION (NON-FORMULARY) (Isosorbide Mononitrate [Isosorbide Mononitrate E PO SCH (10:05)
[2017-03-26] MEDS: OMEGA-3 ACID ETHYL ESTERS (FATTY-ACIDS) 1 GM CAPSULE (FP) PO SCH (10:05)
[2017-03-26] MEDS: ASPIRIN PO SCH (10:06)
[2017-03-26] MEDS: PRENATAL VITAMINS W/ FOLIC ACID TABLET (FP) PO SCH (10:06)
[2017-03-26] MEDS: LIDOCAINE 5% TOPICAL PATCH TP SCH (10:06)
[2017-03-26] MEDS: MIRTAZAPINE 15 MG TABLET (FP) PO SCH (21:54)
[2017-03-26] MEDS: LIDOCAINE PATCH REMOVAL MC SCH (21:55)
[2017-03-26] MEDS: THIAMINE HCL 100 MG TABLET (FP) PO SCH (21:55)
[2017-03-27] MEDS: GABAPENTIN 100 MG CAPSULE (FP) PO SCH ×3 (06:01→21:51)
[2017-03-27] MEDS: GABAPENTIN 800 MG PO SCH ×3 (06:01→21:51)
[2017-03-27] MEDS: CLOPIDOGREL BISULFATE PO SCH (10:12)
[2017-03-27] MEDS: PATIENT'S OWN MEDICATION (NON-FORMULARY) (Isosorbide Mononitrate [Isosorbide Mononitrate E PO SCH (10:12)
[2017-03-27] MEDS: ASPIRIN PO SCH (10:12)
[2017-03-27] MEDS: NIFEDIPINE 30 MG PO SCH (10:12)
[2017-03-27] MEDS: FENOFIBRATE 54 MG PO SCH (10:12)
[2017-03-27] MEDS: PRENATAL VITAMINS W/ FOLIC ACID TABLET (FP) PO SCH (10:12)
[2017-03-27] MEDS: OMEGA-3 ACID ETHYL ESTERS (FATTY-ACIDS) 1 GM CAPSULE (FP) PO SCH (10:13)
[2017-03-27] MEDS: LIDOCAINE 5% TOPICAL PATCH TP SCH (10:13)
[2017-03-27] MEDS: NICOTINE 7 MG/24 HOURS TOPICAL PATCH TD SCH (10:13)
[2017-03-27] MEDS: LIDOCAINE PATCH REMOVAL MC SCH (21:51)
[2017-03-27] MEDS: MIRTAZAPINE 15 MG TABLET (FP) PO SCH (21:51)
[2017-03-27] MEDS: THIAMINE HCL 100 MG TABLET (FP) PO SCH (21:51)
[2017-03-28] MEDS: GABAPENTIN 100 MG CAPSULE (FP) PO SCH ×3 (05:52→21:49)
[2017-03-28] MEDS: GABAPENTIN 800 MG PO SCH ×3 (05:52→21:49)
[2017-03-28] MEDS: CLOPIDOGREL BISULFATE PO SCH (10:31)
[2017-03-28] MEDS: LIDOCAINE 5% TOPICAL PATCH TP SCH (10:32)
[2017-03-28] MEDS: NIFEDIPINE 30 MG PO SCH (10:32)
[2017-03-28] MEDS: FENOFIBRATE 54 MG PO SCH (10:32)
[2017-03-28] MEDS: OMEGA-3 ACID ETHYL ESTERS (FATTY-ACIDS) 1 GM CAPSULE (FP) PO SCH (10:32)
[2017-03-28] MEDS: ASPIRIN PO SCH (10:32)
[2017-03-28] MEDS: PATIENT'S OWN MEDICATION (NON-FORMULARY) (Isosorbide Mononitrate [Isosorbide Mononitrate E PO SCH (10:33)
[2017-03-28] MEDS: PRENATAL VITAMINS W/ FOLIC ACID TABLET (FP) PO SCH (10:35)
[2017-03-28] MEDS: NICOTINE 7 MG/24 HOURS TOPICAL PATCH TD SCH (10:35)
[2017-03-28] MEDS: MIRTAZAPINE 15 MG TABLET (FP) PO SCH (21:49)
[2017-03-28] MEDS: LIDOCAINE PATCH REMOVAL MC SCH (21:49)
[2017-03-28] MEDS: THIAMINE HCL 100 MG TABLET (FP) PO SCH (21:49)
[2017-03-28] MEDS: hydrOXYzine PAMOATE 50 MG CAPSULE (FP) PO PRN (21:49)
[2017-03-29] MEDS: GABAPENTIN 800 MG PO SCH ×3 (06:24→21:51)
[2017-03-29] MEDS: GABAPENTIN 100 MG CAPSULE (FP) PO SCH ×3 (06:24→21:51)
[2017-03-29] MEDS: FENOFIBRATE 54 MG PO SCH (10:34)
[2017-03-29] MEDS: CLOPIDOGREL BISULFATE PO SCH (10:34)
[2017-03-29] MEDS: OMEGA-3 ACID ETHYL ESTERS (FATTY-ACIDS) 1 GM CAPSULE (FP) PO SCH (10:34)
[2017-03-29] MEDS: PATIENT'S OWN MEDICATION (NON-FORMULARY) (Isosorbide Mononitrate [Isosorbide Mononitrate E PO SCH (10:34)
[2017-03-29] MEDS: PRENATAL VITAMINS W/ FOLIC ACID TABLET (FP) PO SCH (10:34)
[2017-03-29] MEDS: ASPIRIN PO SCH (10:34)
[2017-03-29] MEDS: NIFEDIPINE 30 MG PO SCH (10:35)
[2017-03-29] MEDS: NICOTINE 7 MG/24 HOURS TOPICAL PATCH TD SCH (10:35)
[2017-03-29] MEDS: LIDOCAINE 5% TOPICAL PATCH TP SCH (10:35)
[2017-03-29] MEDS ORDERED: PT OWN MED DRAWER 7, Y5N ONE (15:12)
[2017-03-29] MEDS: THIAMINE HCL 100 MG TABLET (FP) PO SCH (21:51)
[2017-03-29] MEDS: MIRTAZAPINE 15 MG TABLET (FP) PO SCH (21:51)
[2017-03-29] MEDS: LIDOCAINE PATCH REMOVAL MC SCH (21:52)
[2017-03-30] MEDS: GABAPENTIN 800 MG PO SCH ×3 (06:39→22:34)
[2017-03-30] MEDS: GABAPENTIN 100 MG CAPSULE (FP) PO SCH ×3 (06:39→22:13)
[2017-03-30] MEDS: CLOPIDOGREL BISULFATE PO SCH (10:08)
[2017-03-30] MEDS: PRENATAL VITAMINS W/ FOLIC ACID TABLET (FP) PO SCH (10:08)
[2017-03-30] MEDS: OMEGA-3 ACID ETHYL ESTERS (FATTY-ACIDS) 1 GM CAPSULE (FP) PO SCH (10:09)
[2017-03-30] MEDS: NIFEDIPINE 30 MG PO SCH (10:09)
[2017-03-30] MEDS: LIDOCAINE 5% TOPICAL PATCH TP SCH (10:09)
[2017-03-30] MEDS: FENOFIBRATE 54 MG PO SCH (10:09)
[2017-03-30] MEDS: ASPIRIN PO SCH (10:09)
[2017-03-30] MEDS: NICOTINE 7 MG/24 HOURS TOPICAL PATCH TD SCH (10:09)
[2017-03-30] MEDS: PATIENT'S OWN MEDICATION (NON-FORMULARY) (Isosorbide Mononitrate [Isosorbide Mononitrate E PO SCH (10:09)
[2017-03-30] MEDS: THIAMINE HCL 100 MG TABLET (FP) PO SCH (22:12)
[2017-03-30] MEDS: MIRTAZAPINE 15 MG TABLET (FP) PO SCH (22:12)
[2017-03-30] MEDS: COLLOIDAL OATMEAL 1 BAR EACH TP PRN (22:12)
[2017-03-30] MEDS: LIDOCAINE PATCH REMOVAL MC SCH (22:31)
[2017-03-31] MEDS: GABAPENTIN 800 MG PO SCH ×3 (06:21→22:18)
[2017-03-31] MEDS: GABAPENTIN 100 MG CAPSULE (FP) PO SCH ×3 (06:21→22:18)
[2017-03-31] MEDS: OMEGA-3 ACID ETHYL ESTERS (FATTY-ACIDS) 1 GM CAPSULE (FP) PO SCH (10:13)
[2017-03-31] MEDS: PATIENT'S OWN MEDICATION (NON-FORMULARY) (Isosorbide Mononitrate [Isosorbide Mononitrate E PO SCH (10:13)
[2017-03-31] MEDS: PRENATAL VITAMINS W/ FOLIC ACID TABLET (FP) PO SCH (10:13)
[2017-03-31] MEDS: NIFEDIPINE 30 MG PO SCH (10:13)
[2017-03-31] MEDS: CLOPIDOGREL BISULFATE PO SCH (10:13)
[2017-03-31] MEDS: FENOFIBRATE 54 MG PO SCH (10:13)
[2017-03-31] MEDS: ASPIRIN PO SCH (10:14)
[2017-03-31] MEDS: LIDOCAINE 5% TOPICAL PATCH TP SCH (10:14)
[2017-03-31] MEDS: NICOTINE 7 MG/24 HOURS TOPICAL PATCH TD SCH (10:14)
[2017-03-31] MEDS: MIRTAZAPINE 15 MG TABLET (FP) PO SCH (22:18)
[2017-03-31] MEDS: THIAMINE HCL 100 MG TABLET (FP) PO SCH (22:18)
[2017-03-31] MEDS: LIDOCAINE PATCH REMOVAL MC SCH (22:18)
[2017-04-01] MEDS: GABAPENTIN 100 MG CAPSULE (FP) PO SCH ×3 (06:05→21:21)
[2017-04-01] MEDS: GABAPENTIN 800 MG PO SCH ×3 (06:05→21:21)
[2017-04-01] MEDS: AMMONIUM LACTATE 12% LOTION 225 GM BOTTLE TP PRN (06:11)
[2017-04-01] MEDS: CLOPIDOGREL BISULFATE PO SCH (10:29)
[2017-04-01] MEDS: PRENATAL VITAMINS W/ FOLIC ACID TABLET (FP) PO SCH (10:29)
[2017-04-01] MEDS: FENOFIBRATE 54 MG PO SCH (10:29)
[2017-04-01] MEDS: PATIENT'S OWN MEDICATION (NON-FORMULARY) (Isosorbide Mononitrate [Isosorbide Mononitrate E PO SCH (10:29)
[2017-04-01] MEDS: LIDOCAINE 5% TOPICAL PATCH TP SCH (10:30)
[2017-04-01] MEDS: NICOTINE 7 MG/24 HOURS TOPICAL PATCH TD SCH (10:30)
[2017-04-01] MEDS: NIFEDIPINE 30 MG PO SCH (10:30)
[2017-04-01] MEDS: OMEGA-3 ACID ETHYL ESTERS (FATTY-ACIDS) 1 GM CAPSULE (FP) PO SCH (10:30)
[2017-04-01] MEDS: ASPIRIN PO SCH (10:30)
[2017-04-01] MEDS: LIDOCAINE PATCH REMOVAL MC SCH (21:21)
[2017-04-01] MEDS: THIAMINE HCL 100 MG TABLET (FP) PO SCH (21:21)
[2017-04-01] MEDS: MIRTAZAPINE 15 MG TABLET (FP) PO SCH (21:21)
[2017-04-02] MEDS: GABAPENTIN 800 MG PO SCH ×3 (06:02→22:23)
[2017-04-02] MEDS: GABAPENTIN 100 MG CAPSULE (FP) PO SCH ×3 (06:02→22:23)
[2017-04-02] MEDS: PRENATAL VITAMINS W/ FOLIC ACID TABLET (FP) PO SCH (10:26)
[2017-04-02] MEDS: FENOFIBRATE 54 MG PO SCH (10:26)
[2017-04-02] MEDS: CLOPIDOGREL BISULFATE PO SCH (10:26)
[2017-04-02] MEDS: PATIENT'S OWN MEDICATION (NON-FORMULARY) (Isosorbide Mononitrate [Isosorbide Mononitrate E PO SCH (10:27)
[2017-04-02] MEDS: OMEGA-3 ACID ETHYL ESTERS (FATTY-ACIDS) 1 GM CAPSULE (FP) PO SCH (10:27)
[2017-04-02] MEDS: NIFEDIPINE 30 MG PO SCH (10:27)
[2017-04-02] MEDS: ASPIRIN PO SCH (10:27)
[2017-04-02] MEDS: LIDOCAINE 5% TOPICAL PATCH TP SCH (10:28)
[2017-04-02] MEDS: NICOTINE 7 MG/24 HOURS TOPICAL PATCH TD SCH (10:31)
[2017-04-02] MEDS: LIDOCAINE PATCH REMOVAL MC SCH (22:23)
[2017-04-02] MEDS: MIRTAZAPINE 15 MG TABLET (FP) PO SCH (22:24)
[2017-04-02] MEDS: THIAMINE HCL 100 MG TABLET (FP) PO SCH (22:25)
[2017-04-03] MEDS: GABAPENTIN 100 MG CAPSULE (FP) PO SCH ×3 (05:58→21:15)
[2017-04-03] MEDS: GABAPENTIN 800 MG PO SCH ×3 (05:58→21:16)
[2017-04-03] MEDS: PRENATAL VITAMINS W/ FOLIC ACID TABLET (FP) PO SCH (10:22)
[2017-04-03] MEDS: NIFEDIPINE 30 MG PO SCH (10:23)
[2017-04-03] MEDS: OMEGA-3 ACID ETHYL ESTERS (FATTY-ACIDS) 1 GM CAPSULE (FP) PO SCH (10:23)
[2017-04-03] MEDS: CLOPIDOGREL BISULFATE PO SCH (10:23)
[2017-04-03] MEDS: ASPIRIN PO SCH (10:23)
[2017-04-03] MEDS: FENOFIBRATE 54 MG PO SCH (10:23)
[2017-04-03] MEDS: PATIENT'S OWN MEDICATION (NON-FORMULARY) (Isosorbide Mononitrate [Isosorbide Mononitrate E PO SCH (10:23)
[2017-04-03] MEDS: LIDOCAINE 5% TOPICAL PATCH TP SCH (10:24)
[2017-04-03] MEDS: NICOTINE 7 MG/24 HOURS TOPICAL PATCH TD SCH (10:24)
[2017-04-03] MEDS: THIAMINE HCL 100 MG TABLET (FP) PO SCH (21:14)
[2017-04-03] MEDS: hydrOXYzine PAMOATE 50 MG CAPSULE (FP) PO PRN (21:15)
[2017-04-03] MEDS: MIRTAZAPINE 15 MG TABLET (FP) PO SCH (21:15)
[2017-04-03] MEDS: LIDOCAINE PATCH REMOVAL MC SCH (21:16)
[2017-04-04] MEDS: GABAPENTIN 100 MG CAPSULE (FP) PO SCH ×3 (06:29→22:16)
[2017-04-04] MEDS: GABAPENTIN 800 MG PO SCH ×3 (06:30→22:19)
[2017-04-04] MEDS: OMEGA-3 ACID ETHYL ESTERS (FATTY-ACIDS) 1 GM CAPSULE (FP) PO SCH (10:23)
[2017-04-04] MEDS: CLOPIDOGREL BISULFATE PO SCH (10:23)
[2017-04-04] MEDS: PATIENT'S OWN MEDICATION (NON-FORMULARY) (Isosorbide Mononitrate [Isosorbide Mononitrate E PO SCH (10:24)
[2017-04-04] MEDS: ASPIRIN PO SCH (10:24)
[2017-04-04] MEDS: LIDOCAINE 5% TOPICAL PATCH TP SCH (10:24)
[2017-04-04] MEDS: NIFEDIPINE 30 MG PO SCH (10:24)
[2017-04-04] MEDS: FENOFIBRATE 54 MG PO SCH (10:24)
[2017-04-04] MEDS: NICOTINE 7 MG/24 HOURS TOPICAL PATCH TD SCH (10:25)
[2017-04-04] MEDS: PRENATAL VITAMINS W/ FOLIC ACID TABLET (FP) PO SCH (10:25)
[2017-04-04] MEDS ORDERED: PT OWN MED DRAWER 7, Y5N ONE (21:02)
[2017-04-04] MEDS: MIRTAZAPINE 15 MG TABLET (FP) PO SCH (22:16)
[2017-04-04] MEDS: LIDOCAINE PATCH REMOVAL MC SCH (22:19)
[2017-04-04] MEDS: THIAMINE HCL 100 MG TABLET (FP) PO SCH (22:19)
[2017-04-05] MEDS: GABAPENTIN 800 MG PO SCH ×3 (06:49→21:46)
[2017-04-05] MEDS: GABAPENTIN 100 MG CAPSULE (FP) PO SCH ×3 (06:49→21:45)
[2017-04-05] MEDS: LIDOCAINE 5% TOPICAL PATCH TP SCH (10:20)
[2017-04-05] MEDS: CLOPIDOGREL BISULFATE PO SCH (10:21)
[2017-04-05] MEDS: NIFEDIPINE 30 MG PO SCH (10:21)
[2017-04-05] MEDS: FENOFIBRATE 54 MG PO SCH (10:21)
[2017-04-05] MEDS: PATIENT'S OWN MEDICATION (NON-FORMULARY) (Isosorbide Mononitrate [Isosorbide Mononitrate E PO SCH (10:21)
[2017-04-05] MEDS: OMEGA-3 ACID ETHYL ESTERS (FATTY-ACIDS) 1 GM CAPSULE (FP) PO SCH (10:22)
[2017-04-05] MEDS: PRENATAL VITAMINS W/ FOLIC ACID TABLET (FP) PO SCH (10:22)
[2017-04-05] MEDS: ASPIRIN PO SCH (10:22)
[2017-04-05] MEDS: NICOTINE 7 MG/24 HOURS TOPICAL PATCH TD SCH (10:23)
[2017-04-05] MEDS: THIAMINE HCL 100 MG TABLET (FP) PO SCH (21:45)
[2017-04-05] MEDS: hydrOXYzine PAMOATE 50 MG CAPSULE (FP) PO PRN (21:45)
[2017-04-05] MEDS: LIDOCAINE PATCH REMOVAL MC SCH (21:46)
[2017-04-05] MEDS: MIRTAZAPINE 15 MG TABLET (FP) PO SCH (21:46)
[2017-04-06] MEDS: GABAPENTIN 100 MG CAPSULE (FP) PO SCH ×3 (06:29→21:51)
[2017-04-06] MEDS: GABAPENTIN 800 MG PO SCH ×3 (06:30→21:52)
[2017-04-06] MEDS: PRENATAL VITAMINS W/ FOLIC ACID TABLET (FP) PO SCH (10:28)
[2017-04-06] MEDS: ASPIRIN PO SCH (10:29)
[2017-04-06] MEDS: NIFEDIPINE 30 MG PO SCH (10:29)
[2017-04-06] MEDS: FENOFIBRATE 54 MG PO SCH (10:29)
[2017-04-06] MEDS: CLOPIDOGREL BISULFATE PO SCH (10:29)
[2017-04-06] MEDS: OMEGA-3 ACID ETHYL ESTERS (FATTY-ACIDS) 1 GM CAPSULE (FP) PO SCH (10:29)
[2017-04-06] MEDS: PATIENT'S OWN MEDICATION (NON-FORMULARY) (Isosorbide Mononitrate [Isosorbide Mononitrate E PO SCH (10:29)
[2017-04-06] MEDS: LIDOCAINE 5% TOPICAL PATCH TP SCH (10:30)
[2017-04-06] MEDS: NICOTINE 7 MG/24 HOURS TOPICAL PATCH TD SCH (10:30)
[2017-04-06] MEDS: THIAMINE HCL 100 MG TABLET (FP) PO SCH (21:50)
[2017-04-06] MEDS: MIRTAZAPINE 15 MG TABLET (FP) PO SCH (21:51)
[2017-04-06] MEDS: LIDOCAINE PATCH REMOVAL MC SCH (21:52)
[2017-04-07] MEDS ORDERED: PT OWN MED DRAWER 7, Y5N ONE (02:49)
[2017-04-07] MEDS: GABAPENTIN 800 MG PO SCH ×3 (06:21→21:39)
[2017-04-07] MEDS: GABAPENTIN 100 MG CAPSULE (FP) PO SCH ×3 (06:21→21:39)
[2017-04-07] MEDS: FENOFIBRATE 54 MG PO SCH (09:56)
[2017-04-07] MEDS: PRENATAL VITAMINS W/ FOLIC ACID TABLET (FP) PO SCH (09:56)
[2017-04-07] MEDS: CLOPIDOGREL BISULFATE PO SCH (09:56)
[2017-04-07] MEDS: NIFEDIPINE 30 MG PO SCH (09:56)
[2017-04-07] MEDS: OMEGA-3 ACID ETHYL ESTERS (FATTY-ACIDS) 1 GM CAPSULE (FP) PO SCH (09:56)
[2017-04-07] MEDS: PATIENT'S OWN MEDICATION (NON-FORMULARY) (Isosorbide Mononitrate [Isosorbide Mononitrate E PO SCH (09:57)
[2017-04-07] MEDS: LIDOCAINE 5% TOPICAL PATCH TP SCH (09:57)
[2017-04-07] MEDS: NICOTINE 7 MG/24 HOURS TOPICAL PATCH TD SCH (09:57)
[2017-04-07] MEDS: ASPIRIN PO SCH (09:57)
--- NOTE | 2017-04-07 15:23 | PN ---
Psychiatric Progress Note Vital Signs: Vital Signs Period Temp Pulse Resp BP Sys/Portillo Pulse Ox Last 24 Hr 98.3 F 69-80 18-18 117-121/63-74 Date of Session: 04/07/17 Chief Complaint:: Discharge Note HPI: Patient addressing Cocaine, Cannabis comorbid with Nicotine Dependence, Substance-induced Mood Disorder and Substance-induced Sleep Disorder ROS: HTN, HLD, DM, CAD, Back pain, Obesity, Xerosis of Skin Current Medications: Active Medications Generic Name Dose Route Start Last Admin Trade Name Freq PRN Reason Stop Dose Admin Acetaminophen 650 mg 03/21/17 15:25 04/06/17 10:30 Tylenol - PO 650 mg Q4H PRN Administration PAIN Al Hydroxide/Mg Hydroxide 30 ml 03/21/17 15:25 Mylanta Oral Suspension - PO Q6H PRN DYSPEPSIA Colloidal Oatmeal 1 applic 03/21/17 18:17 03/30/17 22:12 Aveeno Soap - TP 1 applic DAILY PRN Administration HYGEINE Eucalyptus/Menthol/Phenol/Sorbitol 1 each 03/21/17 15:25 Cepastat Lozenge - MM Q4H PRN SORE THROAT Gabapentin 100 mg 03/22/17 22:00 04/07/17 14:05 Neurontin - PO 100 mg TID ELOINA Administration Guaifenesin 10 ml 03/21/17 15:25 Robitussin Dm - PO Q6H PRN COUGH Hydroxyzine Pamoate 50 mg 03/21/17 15:25 04/05/17 21:45 Vistaril - PO 50 mg Q4H PRN Administration AGITATION Ibuprofen 400 mg 03/21/17 15:25 Motrin - PO Q6H PRN SEVERE PAIN Lactic Acid 1 applic 03/21/17 18:17 04/01/17 06:11 Lac-Hydrin 12 TP 1 applic DAILY PRN Administration DRY SKIN Lidocaine 1 patch 03/23/17 10:00 04/07/17 09:57 Lidoderm Patch - TP 1 patch DAILY ELOINA Administration Loperamide HCl 4 mg 03/21/17 15:25 Imodium - PO Q6H PRN DIARRHEA Magnesium Citrate 300 ml 03/21/17 15:25 Citroma - PO Q48H PRN CONSTIPATION Magnesium Hydroxide 30 ml 03/21/17 15:25 Milk Of Magnesia - PO DAILY PRN CONSTIPATION Mirtazapine 15 mg 03/22/17 22:00 04/06/17 21:51 Remeron - PO 15 mg HS ELOINA Administration Miscellaneous 1 each 03/23/17 22:00 04/06/17 21:52 Lidoderm Patch Removal MC 1 each DAILY@2200 ELOINA Administration Nicotine 7 mg 03/22/17 10:00 04/07/17 09:57 Nicoderm Patch - TD Not Given DAILY ELOINA Nicotine Polacrilex 4 mg 03/21/17 15:25 03/23/17 10:20 Nicorette Gum - BC 4 mg Q2H PRN Administration NICOTINE REPLACEMENT RX Patient's Own 81 mg 03/22/17 10:00 04/07/17 09:57 Medication (Non- PO 81 mg Formulary) (Aspirin DAILY ELOINA Administration Ec [Asa -] 81 Mg) Non-Formulary Medication 75 mg 03/22/17 10:00 04/07/17 09:56 Clopidogrel Bisulfate [Plavix -] PO 75 mg DAILY ELOINA Administration Non-Formulary Medication 54 mg 03/22/17 10:00 04/07/17 09:56 Fenofibrate [Lofibra] PO 54 mg DAILY ELOINA Administration Non-Formulary Medication 30 mg 03/22/17 10:00 04/07/17 09:57 Isosorbide Mononitrate [Isosorbide Mononitrate Er] PO 30 mg DAILY ELOINA Administration Non-Formulary Medication 30 mg 03/22/17 10:00 04/07/17 09:56 Nifedipine [Procardia Xl] PO 30 mg DAILY ELOINA Administration Patient's Own Med: 800 each 03/22/17 14:00 04/07/17 14:05 Gabapentin 800 Mg PO 800 each Tablets (Nf) TID ELOINA Administration [id number] Ethyl Esters 1 gm 03/22/17 10:00 04/07/17 09:56 Lovaza - PO 1 gm DAILY ELOINA Administration Multivit/Folic Acid/Iron 1 tab 03/22/17 10:00 04/07/17 09:56 Vitamins (Sjr) - PO 1 tab DAILY ELOINA Administration Pseudoephedrine/Triprolidine 1 combo 03/21/17 15:25 Actifed - PO TID PRN NASAL CONGESTION Thiamine HCl 100 mg 03/21/17 22:00 04/06/17 21:50 Vitamin B1 - PO 100 mg HS ELOINA Administration Current Side Effect: No Lab tests ordered: Yes Lab tests reviewed: Yes Provider note:: Patient will complete this program on 04/08/17. He has met his treatment goals and will continue to address his issues in outpatient treatment at [facility]. Told creative services writer that from his participation in this program, he has learned the importance of surrounding himself with a sober support network in order to maintain abstinence. He responded well to Remeron 15v mg po HS. Script for 30 days supply of that medication will be electronically transmitted to [facility] at [address] [place] [address]. He is stable for discharge on 04/08/17 Total face to face time:: 35 Mental Status Exam - Mental Status Exam Alert and Oriented to: Person Cognitive Function: Fair Patient Appearance: Well Groomed Mood: Hopeful, Euthymic Affect: Appropriate Patient Behavior: Cooperative Speech Pattern: Clear Voice Loudness: Normal Thought Process: Intact Thought Disorder: Not Present Hallucinations: Denies Suicidal Ideation: Denies Homicidal Ideation: Denies Insight/Judgement: Fair Sleep: Fair Appetite: Good Muscle strength/Tone: Normal Gait/Station: Normal Psychiatric Treatment Plan - Problem List (1) Cocaine dependence Current Visit: Yes Qualifiers: Substance use status: uncomplicated Qualified Code(s): F14.20 - Cocaine dependence, uncomplicated (2) Cannabis dependence Current Visit: Yes (3) Nicotine dependence Current Visit: Yes Qualifiers: Nicotine product type: cigarettes Substance use status: uncomplicated Qualified Code(s): F17.210 - Nicotine dependence, cigarettes, uncomplicated (4) Substance induced mood disorder Current Visit: Yes (5) Substance-induced sleep disorder Current Visit: Yes (6) Hypertension Current Visit: Yes Qualifiers: Hypertension type: essential hypertension Qualified Code(s): I10 - Essential (primary) hypertension (7) Back pain Current Visit: No Qualifiers: Chronicity: chronic Back pain laterality: midline Sciatica laterality: bilateral sciatica Comment: PAIN OF WHOLE SPINE (8) CAD (coronary artery disease) Current Visit: No Qualifiers: Coronary Disease-Associated Artery/Lesion type: bypass graft [place] vs. transplanted heart: [place] heart (9) Diabetes mellitus Current Visit: No Qualifiers: Diabetes mellitus type: type 2 Diabetes mellitus complication status: without complication (10) Obesity Current Visit: No (11) Xerosis of skin Current Visit: No (12) Dyslipidemia Current Visit: Yes Initial treatment plan: Patient will be discharged tomorrow and referred to [facility] for outpatient treatment
[2017-04-07] MEDS: LIDOCAINE PATCH REMOVAL MC SCH (21:39)
[2017-04-07] MEDS: hydrOXYzine PAMOATE 50 MG CAPSULE (FP) PO PRN (21:39)
[2017-04-07] MEDS: MIRTAZAPINE 15 MG TABLET (FP) PO SCH (21:39)
[2017-04-07] MEDS: THIAMINE HCL 100 MG TABLET (FP) PO SCH (21:39)
[2017-04-08] MEDS ORDERED: PT OWN MED DRAWER 7, Y5N ONE (01:14)
[2017-04-08] MEDS: GABAPENTIN 100 MG CAPSULE (FP) PO SCH (06:17)
[2017-04-08] MEDS: GABAPENTIN 800 MG PO SCH (06:17)
[2017-04-08 06:49] VITALS: BP 137/91; PULSE 74; TEMP 99.1
== END 2017-04-08 07:00 | disposition home or self-care (01) | DRG 772 ==
LOC: YASAS 11:50 → Y3W 16:07
PROVIDERS: ADMIT Psychiatry & Neurology Psychiatry; ATTEND Psychiatry & Neurology Psychiatry
PROC: HZ42ZZZ Group Counseling for Substance Abuse Treatment, Cognitive-Behavioral (ICD-10-PCS; principal; 2017-03-21)
DX: F14.20 Cocaine dependence, uncomplicated (principal); F12.20 Cannabis dependence, uncomplicated; F17.210 Nicotine dependence, cigarettes, uncomplicated; F19.24 Other psychoactive substance dependence with psychoactive substance-induced mood disorder; F19.282 Other psychoactive substance dependence with psychoactive substance-induced sleep disorder; I10 Essential (primary) hypertension; I25.10 Atherosclerotic heart disease of native coronary artery without angina pectoris; E11.9 Type 2 diabetes mellitus without complications; M54.42 Lumbago with sciatica, left side; M54.41 Lumbago with sciatica, right side; E66.9 Obesity, unspecified; Z68.27 Body mass index [BMI] 27.0-27.9, adult; L85.3 Xerosis cutis; Z91.011 Allergy to milk products; Z91.018 Allergy to other foods; Z79.84 Long term (current) use of oral hypoglycemic drugs; Z95.5 Presence of coronary angioplasty implant and graft
CPT/HCPCS: 36415; 80053; 81003; 81015; 85027; 86593; 93005; 93010

== ENCOUNTER 2017-12-07 16:47 | Inpatient (IN) | payer BC ==
[2017-12-07 17:37] VITALS: BMI 28.8
--- NOTE | 2017-12-07 21:18 | HP ---
Admission [facility] Chief Complaint: alcohol, cocaine rehab Allergies/Adverse Reactions: Allergies Allergy/AdvReac Type Severity Reaction Status Date / Time lisinopril Allergy Mild Cough Verified 12/07/17 21:38 No Known Drug Allergies Allergy Verified 12/07/17 19:21 lactose AdvReac bloating Verified 12/07/17 19:21 and gas red sauce Allergy Intermediate Hives Uncoded 12/07/17 19:21 RED MEAT Allergy Mild Hives Uncoded 12/07/17 19:21 History of Present Illness: 57 yo male with of alcohol, cocaine and marijuana dependence is here seeking rehabilitation. Last detox at [facility] discharge about a week ago. Patient seen at [facility] today for chest pain, reports x-ray done with negative results. PMHX : neuropathy, spinal fusion, Heart Disease, HTN, Diabetes diet control, anxiety , insomnia. Denies suicidal / homicidal ideation. Denies hx of seizures or blackouts. Exam Limitations: No Limitations - Ebola screening Have you been sick,other than usual withdrawal symptoms: No - Review of Systems Constitutional: Unintentional Wgt. Loss EENT: reports: No Symptoms Reported Respiratory: reports: Cough, SOB with Exertion Cardiac: reports: Other (repost chest pain when using drugs) GI: reports: No Symptoms Reported : reports: No Symptoms Reported Musculoskeletal: reports: Back Pain (chronic) Integumentary: reports: No Symptoms Reported Neuro: reports: Other (neuropathy both feet) Endocrine: reports: No Symptoms Reported Hematology: reports: No Symptoms Reported Psychiatric: reports: Mood/Affect Appropiate, Orientated x3 Other Systems: Reviewed and Negative Patient History - Patient Medical History Hx Anemia: No Hx Asthma: No Hx Chronic Obstructive Pulmonary Disease (COPD): No Hx Cancer: No Hx Cardiac Disorders: Yes (stents x2) Hx Congestive Heart Failure: No Hx Hypertension: Yes Hx Hypercholesterolemia: Yes (ON MEDS) Hx Pacemaker: No HX Cerebrovascular Accident: No Hx Seizures: No Hx Dementia: No Hx Diabetes: Yes (NIDDM) Hx Gastrointestinal Disorders: No Hx Liver Disease: No Hx Genitourinary Disorders: No Hx Sexually Transmitted Disorders: No Hx Renal Disease (ESRD): No Hx Thyroid Disease: No Hx Human Immunodeficiency Virus (HIV): No (NEGATIVE HX) Hx Hepatitis C: No Hx Depression: Yes Hx Suicide Attempt: No Hx Bipolar Disorder: No Hx Schizophrenia: No - Patient Surgical History Past Surgical History: No Hx Neurologic Surgery: No Hx Cataract Extraction: No Hx Cardiac Surgery: Yes (CARDIAC STENTS #2 in 2010) Hx Lung Surgery: No Hx Breast Surgery: No Hx Breast Biopsy: No Hx Abdominal Surgery: No Hx Appendectomy: No Hx Cholecystectomy: Yes (02/22) Hx Genitourinary Surgery: No Hx Section: No Hx Orthopedic Surgery: Yes (S/P LAMINECTOMY C3,4,5 2004) Hx Hysterectomy: No Other Surgical History: CHRONIC CERVICAL PAIN Anesthesia Reaction: No - PPD History Previous Implant?: No Documented Results: Negative w/proof Date: 03/23/17 Results: 0 mm PPD to be Administered?: No - Smoking Cessation Smoking history: Current some day smoker Have you smoked in the past 12 months: Yes Aproximately how many cigarettes per day: 2 Cigars Per Day: 0 Hx Chewing Tobacco Use: No Initiated information on smoking cessation: Yes 'Breaking Loose' booklet given: 12/07/17 - Substance & Tx. History Hx Alcohol Use: Yes Substance Use Type: Alcohol Hx Substance Use Treatment: Yes (Last detox at [facility] discharge about a week ago) - Substances Abused Alcohol Route: Oral Frequency: Daily Amount used: 1 pint liquor Age of first use: 17 Date of Last Use: 12/06/17 Crack Route: Smoking Frequency: Daily Amount used: $200 Age of first use: 28 Date of Last Use: 12/06/17 Marijuana/Hashish Route: Smoking Frequency: Daily Amount used: 1 bag Age of first use: 15 Date of Last Use: 12/06/17 Family Disease History - Family Disease History Family Disease History: [place]: Father (alzheimers,ALCOHOL), Other: Father, Mother ( ALCOHOL, HTN), Brother (aneurysm ) Admission Physical Exam BHS - Vital Signs Vital Signs: Vital Signs - 24 hr 12/07/17 17:35 Temperature 97.8 F Pulse Rate 60 Respiratory 18 Rate Blood Pressure 136/78 - Physical General Appearance: Yes: Nourished, Appropriately Dressed HEENTM: Yes: Within Normal Limits Respiratory: Yes: Within Normal Limits Neck: Yes: Within Normal Limits Breast: Yes: Breast Exam Deferred Cardiology: Yes: Regular Rhythm, Regular Rate Abdominal: Yes: Within Normal Limits Genitourinary: Yes: Within Normal Limits Back: Yes: Normal Inspection Musculoskeletal: Yes: full range of Motion, Gait Steady, Pelvis Stable, Back pain Extremities: Yes: Within Normal Limits Neurological: Yes: review specialist II-XII NML intact, Alert, Motor Strength 5/5, Normal Response, Depressed Affect Integumentary: Yes: Normal Color, Dry, Warm Lymphatic: Yes: Within Normal Limits - Diagnostic (1) Cannabis dependence Current Visit: Yes Status: Acute (2) Cocaine dependence Current Visit: No Status: Acute Qualifiers: Substance use status: uncomplicated Qualified Code(s): F14.20 - Cocaine dependence, uncomplicated (3) Dyslipidemia Current Visit: No Status: Acute (4) Back pain Current Visit: Yes Status: Chronic Qualifiers: Chronicity: chronic Back pain laterality: midline Sciatica laterality: bilateral sciatica Comment: PAIN OF WHOLE SPINE (5) CAD (coronary artery disease) Current Visit: Yes Status: Chronic Qualifiers: Coronary Disease-Associated Artery/Lesion type: bypass graft [place] vs. transplanted heart: [place] heart (6) Diabetes mellitus Current Visit: Yes Status: Chronic Qualifiers: Diabetes mellitus type: type 2 Diabetes mellitus intermediate insulin use: without terminal superintendent use Diabetes mellitus complication status: without complication Qualified Code(s): E11.9 - Type 2 diabetes mellitus without complications (7) Hypertension Current Visit: No Status: Chronic Qualifiers: Hypertension type: essential hypertension Qualified Code(s): I10 - Essential (primary) hypertension (8) Nicotine dependence Current Visit: No Status: Chronic Qualifiers: Nicotine product type: cigarettes Substance use status: uncomplicated Qualified Code(s): F17.210 - Nicotine dependence, cigarettes, uncomplicated (9) Obesity Current Visit: Yes Status: Chronic BHS Breath Alcohol Content Breath Alcohol Content: 0 Urine Drug Screen - Results Drug Screen Negative: No Urine Drug Screen Results: THC-Marijuana, JAMAAL-Cocaine, BZO-Benzodiazepines
[2017-12-07] MEDS ORDERED: LOPERAMIDE HCL 2 MG CAPSULE PO PRN (21:29)
[2017-12-07] MEDS ORDERED: MAGNESIUM HYDROX 2400MG/30ML ORAL SUSPENSION 30 ML CUP PO PRN (21:29)
[2017-12-07] MEDS ORDERED: IBUPROFEN 400 MG TABLET (FP) PO PRN (21:29)
[2017-12-07] MEDS ORDERED: MAGNESIUM CITRATE 300 ML BOTTLE PO PRN (21:29)
[2017-12-07] MEDS ORDERED: P-EPHED 60MG/TRIPROLIDI 2.5MG TABLET PO PRN (21:29)
[2017-12-07] MEDS ORDERED: guaiFENesin/D-METHORPHAN HB 10 ML UNIT-DOSE CUPS PO PRN (21:29)
[2017-12-07] MEDS ORDERED: MAG HYDROX/AL HYDROX/SIMETH 30 ML UNIT-DOSE CUP PO PRN (21:29)
[2017-12-07] MEDS ORDERED: MENTHOL/PHENOL 1 EACH UD MM PRN (21:29)
[2017-12-07] MEDS: ATORVASTATIN CA 80 MG TABLET (FP) PO SCH (22:42)
[2017-12-07] MEDS: THIAMINE HCL 100 MG TABLET (FP) PO SCH (22:42)
[2017-12-08 00:04] LABS: URINE APPEARANCE CLEAR; URINE BILIRUBIN NEGATIVE (<2.0 mg/dL); URINE COLOR YELLOW; URINE GLUCOSE (UA) NEGATIVE (NEGATIVE); URINE KETONE NEGATIVE (NEGATIVE); URINE LEUK ESTERASE NEGATIVE (NEGATIVE); URINE NITRITE NEGATIVE (NEGATIVE); URINE PROTEIN NEGATIVE (NEGATIVE); URINE UROBILINOGEN 4.0 E.U/dl mg/dL (0.2-1.0)
[2017-12-08] MEDS: PRENATAL VITAMINS W/ FOLIC ACID TABLET (FP) PO SCH (09:54)
[2017-12-08] MEDS: LIDOCAINE 5% TOPICAL PATCH TP SCH (09:54)
[2017-12-08] MEDS: FUROSEMIDE 20 MG TABLET (FP) PO SCH (09:54)
[2017-12-08] MEDS: NIFEdipine E.R. 30 MG TABLET (FP) PO SCH (09:54)
[2017-12-08] MEDS ORDERED: ISOSORBIDE MONONITRATE 60 MG TAB.SR.24H (FP) PO SCH (10:00)
[2017-12-08 10:24] LABS: HEMATOCRIT 42.3 % (35.4-49); HEMOGLOBIN 13.7 GM/dL (11.7-16.9); MCH 30.1 pg (25.7-33.7); MCHC 32.5 g/dl (32.0-35.9); MEAN CELL VOLUME 92.7 fl (80-96); MEAN PLT VOLUME 9.7 fl (7.5-11.1); PLATELET COUNT 137 K/MM3 (134-434); RBC 4.56 M/mm3 (4.00-5.60); RDW 13.9 % (11.9-15.9); WHITE BLOOD COUNT 3.3 K/mm3 (4.0-10.0)
[2017-12-08] MEDS: ISOSORBIDE MONONITRATE 30 MG TAB.SR.24H (FP) PO SCH (10:36)
--- NOTE | 2017-12-08 12:18 | EKG ---
Test Reason : Blood Pressure : / mmHG Vent. Rate : 087 BPM Atrial Rate : 087 BPM P-R Int : 178 ms QRS Dur : 112 ms QT Int : 396 ms P-R-T Axes : 065 -57 000 degrees QTc Int : 476 ms SINUS RHYTHM WITH FREQUENT PREMATURE VENTRICULAR COMPLEXES IN A PATTERN OF BIGEMINY LEFT AXIS DEVIATION MODERATE VOLTAGE CRITERIA FOR LVH, MAY BE NORMAL VARIANT ABNORMAL ECG WHEN COMPARED WITH ECG OF 21-MAR-2017 22:55, ST NO LONGER ELEVATED IN ANTERIOR LEADS T WAVE AMPLITUDE HAS DECREASED IN ANTERIOR LEADS Confirmed by NELSON MCBRIDE MD ([id number]) on 12/08/2017 12:18:10 PM Referred By: Confirmed By:NELSON MCBRIDE MD
[2017-12-08 12:24] LABS: CHLORIDE 106 mmol/L (98-107); SODIUM 142 mmol/L (136-145)
[2017-12-08 12:37] LABS: ALBUMIN 3.2 g/dl (3.4-5.0); ALK PHOS 135 U/L (45-117); ANION GAP 8 MMOL/L (8-16); BILIRUBIN,TOTAL 0.7 mg/dL (0.2-1.0); BLOOD UREA NITROGEN 21 mg/dL (7-18); CALCIUM 8.2 mg/dL (8.5-10.1); CO2 28 mmol/L (21-32); CREATININE 0.8 mg/dL (0.7-1.3); GLUCOSE,RANDOM 118 mg/dL (74-106); SGOT/AST 16 U/L (15-37); SGPT/ALT 20 U/L (12-78); TOT PROT 6.3 g/dl (6.4-8.2)
[2017-12-08] MEDS: MELATONIN 5 MG TABLETS PO PRN (21:14)
[2017-12-08] MEDS: THIAMINE HCL 100 MG TABLET (FP) PO SCH (21:14)
[2017-12-08] MEDS: ATORVASTATIN CA 80 MG TABLET (FP) PO SCH (21:14)
[2017-12-08] MEDS: ACETAMINOPHEN 325 MG TABLET (FP) PO PRN (21:15)
[2017-12-09] MEDS: PRENATAL VITAMINS W/ FOLIC ACID TABLET (FP) PO SCH (09:51)
[2017-12-09] MEDS: FUROSEMIDE 20 MG TABLET (FP) PO SCH (09:51)
[2017-12-09] MEDS: ISOSORBIDE MONONITRATE 30 MG TAB.SR.24H (FP) PO SCH (09:52)
[2017-12-09] MEDS: ACETAMINOPHEN 325 MG TABLET (FP) PO PRN (09:54)
[2017-12-09] MEDS: NIFEdipine E.R. 30 MG TABLET (FP) PO SCH (09:56)
[2017-12-09] MEDS: LIDOCAINE 5% TOPICAL PATCH TP SCH (09:56)
[2017-12-09] MEDS ORDERED: ISOSORBIDE MONONITRATE 30 MG TAB.SR.24H (FP) PO SCH (10:00)
--- NOTE | 2017-12-09 12:11 | HP ---
Psychiatrist Admission - Data Date of interview: 12/09/17 Admission source: [address] [place] [address] Identifying data: This is one of the multipple admissions to inpatient rehabilition for this 57 years old single AA male childless,resides alone in rented room,supported by [facility]. Medical History: Significant for Spinal stenosis,CAD,Obesity,HTN,Hyperlipidemia, H/O Laminectomy. Psychiatric History: patient sees psychiatrist at [facility].Current medications: Remeron 15 mg po hs. Physical/Sexual Abuse/Trauma History: denies Vital Signs: Vital Signs - 24 hr 12/09/17 12/09/17 12/09/17 00:30 03:30 07:01 Temperature 97.9 F Pulse Rate 60 Respiratory 18 18 18 Rate Blood Pressure 123/87 Allergies/Adverse Reactions: Allergies Allergy/AdvReac Type Severity Reaction Status Date / Time lisinopril Allergy Mild Cough Verified 12/07/17 21:38 No Known Drug Allergies Allergy Verified 12/07/17 19:21 lactose AdvReac bloating Verified 12/07/17 19:21 and gas red sauce Allergy Intermediate Hives Uncoded 12/07/17 19:21 RED MEAT Allergy Mild Hives Uncoded 12/07/17 19:21 Concur with the findings of this exam: Yes - Substance Abuse/Tx History Hx Alcohol Use: Yes Hx Substance Use: Yes (marijuana since 15 yo,cocaine/crack since 29 yo,spending $100 6 times a wee) Substance Use Type: Cocaine, Marijuana Hx Substance Use Treatment: Yes (multiple previous detox/rehab treatments) Mental Status Exam - Mental Status Exam Alert and Oriented to: Time, Place, Person Cognitive Function: Grossly Intact Patient Appearance: Well Groomed Mood: Sad Affect: Mood Congruent Patient Behavior: Cooperative Speech Pattern: Clear Voice Loudness: Normal Thought Process: Goal Oriented Thought Disorder: Not Present Hallucinations: Denies Suicidal Ideation: Denies Homicidal Ideation: Denies Insight/Judgement: Fair Sleep: Fair Appetite: Good Muscle strength/Tone: Normal Gait/Station: Normal Psychiatric Findings - Problem List ([place] 1, 2,3) (1) Cannabis dependence Current Visit: Yes Status: Chronic (2) Back pain Current Visit: Yes Status: Chronic Qualifiers: Chronicity: chronic Back pain laterality: midline Sciatica laterality: bilateral sciatica Comment: PAIN OF WHOLE SPINE (3) CAD (coronary artery disease) Current Visit: Yes Status: Chronic Qualifiers: Coronary Disease-Associated Artery/Lesion type: bypass graft [place] vs. transplanted heart: [place] heart (4) Diabetes mellitus Current Visit: Yes Status: Chronic Qualifiers: Diabetes mellitus type: type 2 Diabetes mellitus snf insulin use: without chocolate dipper use Diabetes mellitus complication status: without complication Qualified Code(s): E11.9 - Type 2 diabetes mellitus without complications (5) Obesity Current Visit: Yes Status: Chronic (6) Cocaine dependence Current Visit: Yes Status: Chronic Qualifiers: Substance use status: uncomplicated Qualified Code(s): F14.20 - Cocaine dependence, uncomplicated (7) Drug-induced mood disorder Current Visit: Yes Status: Chronic (8) Dyslipidemia Current Visit: Yes Status: Chronic (9) Spinal stenosis Current Visit: Yes Status: Chronic (10) Substance induced mood disorder Current Visit: Yes Status: Chronic (11) Substance-induced sleep disorder Current Visit: Yes Status: Chronic (12) Hypertension Current Visit: Yes Status: Chronic Qualifiers: Hypertension type: essential hypertension Qualified Code(s): I10 - Essential (primary) hypertension (13) Nicotine dependence Current Visit: Yes Status: Chronic Qualifiers: Nicotine product type: cigarettes Substance use status: uncomplicated Qualified Code(s): F17.210 - Nicotine dependence, cigarettes, uncomplicated - Initial Treatment Plan Initial Treatment Plan: Contune remeron 15 mg po hs.will monitor progress.
--- NOTE | 2017-12-09 14:20 | PN ---
BHS Progress Note (SOAP) Subjective: C/o chronic muscle tenseness and w/ pins and needle pain neck. Hx spinal fusion which limits neck movement.States pain is a "8". States pain is decreased w/ muscle relaxants. Objective: Alert and oriented. Vital Signs 12/09/17 12/09/17 07:01 10:00 Temperature 97.9 F Pulse Rate 60 60 Respiratory 18 Rate Blood Pressure 123/87 127/80 Assessment: Neck w/ decreased ROM. No nuccal rigidity. Muscle tightness at back of neck. No withdrawal symptoms. Vital Signs 12/09/17 12/09/17 07:01 10:00 Temperature 97.9 F Pulse Rate 60 60 Respiratory 18 Rate Blood Pressure 123/87 127/80 Plan: Flexeril 5 mg PO TID Continue rehab.
[2017-12-09] MEDS: CYCLOBENZAPRINE HCL 5 MG TABLET PO SCH (21:09)
[2017-12-09] MEDS: ATORVASTATIN CA 80 MG TABLET (FP) PO SCH (21:09)
[2017-12-09] MEDS: THIAMINE HCL 100 MG TABLET (FP) PO SCH (21:09)
[2017-12-10] MEDS: CYCLOBENZAPRINE HCL 5 MG TABLET PO SCH ×3 (06:18→21:18)
[2017-12-10] MEDS: NIFEdipine E.R. 30 MG TABLET (FP) PO SCH (09:51)
[2017-12-10] MEDS: PRENATAL VITAMINS W/ FOLIC ACID TABLET (FP) PO SCH (09:51)
[2017-12-10] MEDS: ISOSORBIDE MONONITRATE 30 MG TAB.SR.24H (FP) PO SCH (09:51)
[2017-12-10] MEDS: FUROSEMIDE 20 MG TABLET (FP) PO SCH (09:51)
[2017-12-10] MEDS: LIDOCAINE 5% TOPICAL PATCH TP SCH (09:53)
[2017-12-10] MEDS ORDERED: ACETAMINOPHEN 325 MG TABLET (FP) PO PRN (18:55)
[2017-12-10] MEDS: ATORVASTATIN CA 80 MG TABLET (FP) PO SCH (21:18)
[2017-12-10] MEDS: THIAMINE HCL 100 MG TABLET (FP) PO SCH (21:18)
[2017-12-10] MEDS: ACETAMINOPHEN 325 MG TABLET (FP) PO PRN (21:19)
[2017-12-11] MEDS: CYCLOBENZAPRINE HCL 5 MG TABLET PO SCH ×3 (06:11→21:17)
[2017-12-11] MEDS: FUROSEMIDE 20 MG TABLET (FP) PO SCH (09:48)
[2017-12-11] MEDS: PRENATAL VITAMINS W/ FOLIC ACID TABLET (FP) PO SCH (09:48)
[2017-12-11] MEDS: NIFEdipine E.R. 30 MG TABLET (FP) PO SCH (09:48)
[2017-12-11] MEDS: ISOSORBIDE MONONITRATE 30 MG TAB.SR.24H (FP) PO SCH (09:48)
[2017-12-11] MEDS: LIDOCAINE 5% TOPICAL PATCH TP SCH (09:49)
[2017-12-11] MEDS: THIAMINE HCL 100 MG TABLET (FP) PO SCH (21:17)
[2017-12-11] MEDS: ATORVASTATIN CA 80 MG TABLET (FP) PO SCH (21:17)
[2017-12-11] MEDS: MELATONIN 5 MG TABLETS PO PRN (21:18)
[2017-12-11] MEDS: ACETAMINOPHEN 325 MG TABLET (FP) PO PRN (21:19)
[2017-12-12] MEDS: CYCLOBENZAPRINE HCL 5 MG TABLET PO SCH ×3 (06:12→21:21)
[2017-12-12] MEDS: LIDOCAINE 5% TOPICAL PATCH TP SCH (09:45)
[2017-12-12] MEDS: PRENATAL VITAMINS W/ FOLIC ACID TABLET (FP) PO SCH (09:45)
[2017-12-12] MEDS: NIFEdipine E.R. 30 MG TABLET (FP) PO SCH (09:45)
[2017-12-12] MEDS: ISOSORBIDE MONONITRATE 30 MG TAB.SR.24H (FP) PO SCH (09:45)
[2017-12-12] MEDS: FUROSEMIDE 20 MG TABLET (FP) PO SCH (09:45)
[2017-12-12] MEDS: ATORVASTATIN CA 80 MG TABLET (FP) PO SCH (21:21)
[2017-12-12] MEDS: THIAMINE HCL 100 MG TABLET (FP) PO SCH (21:21)
[2017-12-12] MEDS: ACETAMINOPHEN 325 MG TABLET (FP) PO PRN (21:22)
[2017-12-13] MEDS: CYCLOBENZAPRINE HCL 5 MG TABLET PO SCH ×3 (06:32→21:13)
[2017-12-13] MEDS: NIFEdipine E.R. 30 MG TABLET (FP) PO SCH (10:13)
[2017-12-13] MEDS: PRENATAL VITAMINS W/ FOLIC ACID TABLET (FP) PO SCH (10:13)
[2017-12-13] MEDS: FUROSEMIDE 20 MG TABLET (FP) PO SCH (10:13)
[2017-12-13] MEDS: ISOSORBIDE MONONITRATE 30 MG TAB.SR.24H (FP) PO SCH (10:13)
[2017-12-13] MEDS: LIDOCAINE 5% TOPICAL PATCH TP SCH (10:14)
[2017-12-13] MEDS: THIAMINE HCL 100 MG TABLET (FP) PO SCH (21:13)
[2017-12-13] MEDS: ATORVASTATIN CA 80 MG TABLET (FP) PO SCH (21:13)
[2017-12-14] MEDS: CYCLOBENZAPRINE HCL 5 MG TABLET PO SCH ×3 (07:18→21:17)
[2017-12-14] MEDS: NIFEdipine E.R. 30 MG TABLET (FP) PO SCH (09:43)
[2017-12-14] MEDS: ISOSORBIDE MONONITRATE 30 MG TAB.SR.24H (FP) PO SCH (09:43)
[2017-12-14] MEDS: FUROSEMIDE 20 MG TABLET (FP) PO SCH (09:43)
[2017-12-14] MEDS: PRENATAL VITAMINS W/ FOLIC ACID TABLET (FP) PO SCH (09:43)
[2017-12-14] MEDS: LIDOCAINE 5% TOPICAL PATCH TP SCH (09:44)
[2017-12-14] MEDS: THIAMINE HCL 100 MG TABLET (FP) PO SCH (21:16)
[2017-12-14] MEDS: ATORVASTATIN CA 80 MG TABLET (FP) PO SCH (21:17)
[2017-12-15] MEDS: CYCLOBENZAPRINE HCL 5 MG TABLET PO SCH ×3 (07:19→21:13)
[2017-12-15] MEDS: ISOSORBIDE MONONITRATE 30 MG TAB.SR.24H (FP) PO SCH (09:43)
[2017-12-15] MEDS: FUROSEMIDE 20 MG TABLET (FP) PO SCH (09:43)
[2017-12-15] MEDS: PRENATAL VITAMINS W/ FOLIC ACID TABLET (FP) PO SCH (09:43)
[2017-12-15] MEDS: LIDOCAINE 5% TOPICAL PATCH TP SCH (09:44)
[2017-12-15] MEDS: NIFEdipine E.R. 30 MG TABLET (FP) PO SCH (09:44)
[2017-12-15] MEDS: THIAMINE HCL 100 MG TABLET (FP) PO SCH (21:13)
[2017-12-15] MEDS: ATORVASTATIN CA 80 MG TABLET (FP) PO SCH (21:13)
[2017-12-16] MEDS: CYCLOBENZAPRINE HCL 5 MG TABLET PO SCH ×3 (07:15→21:48)
[2017-12-16] MEDS: FUROSEMIDE 20 MG TABLET (FP) PO SCH (10:02)
[2017-12-16] MEDS: NIFEdipine E.R. 30 MG TABLET (FP) PO SCH (10:02)
[2017-12-16] MEDS: ISOSORBIDE MONONITRATE 30 MG TAB.SR.24H (FP) PO SCH (10:02)
[2017-12-16] MEDS: LIDOCAINE 5% TOPICAL PATCH TP SCH (10:02)
[2017-12-16] MEDS: PRENATAL VITAMINS W/ FOLIC ACID TABLET (FP) PO SCH (10:02)
[2017-12-16] MEDS: THIAMINE HCL 100 MG TABLET (FP) PO SCH (21:47)
[2017-12-16] MEDS: MELATONIN 5 MG TABLETS PO PRN (21:48)
[2017-12-16] MEDS: ATORVASTATIN CA 80 MG TABLET (FP) PO SCH (21:48)
[2017-12-16] MEDS: ACETAMINOPHEN 325 MG TABLET (FP) PO PRN (21:50)
[2017-12-17] MEDS: CYCLOBENZAPRINE HCL 5 MG TABLET PO SCH ×3 (06:27→21:28)
[2017-12-17] MEDS: NIFEdipine E.R. 30 MG TABLET (FP) PO SCH (09:55)
[2017-12-17] MEDS: FUROSEMIDE 20 MG TABLET (FP) PO SCH (09:55)
[2017-12-17] MEDS: PRENATAL VITAMINS W/ FOLIC ACID TABLET (FP) PO SCH (09:55)
[2017-12-17] MEDS: ISOSORBIDE MONONITRATE 30 MG TAB.SR.24H (FP) PO SCH (09:55)
[2017-12-17] MEDS: LIDOCAINE 5% TOPICAL PATCH TP SCH (09:55)
[2017-12-17] MEDS: ATORVASTATIN CA 80 MG TABLET (FP) PO SCH (21:28)
[2017-12-17] MEDS: THIAMINE HCL 100 MG TABLET (FP) PO SCH (21:28)
[2017-12-18] MEDS: CYCLOBENZAPRINE HCL 5 MG TABLET PO SCH ×3 (06:49→21:24)
[2017-12-18] MEDS: LIDOCAINE 5% TOPICAL PATCH TP SCH (09:47)
[2017-12-18] MEDS: NIFEdipine E.R. 30 MG TABLET (FP) PO SCH (09:47)
[2017-12-18] MEDS: FUROSEMIDE 20 MG TABLET (FP) PO SCH (09:47)
[2017-12-18] MEDS: PRENATAL VITAMINS W/ FOLIC ACID TABLET (FP) PO SCH (09:47)
[2017-12-18] MEDS: ISOSORBIDE MONONITRATE 30 MG TAB.SR.24H (FP) PO SCH (09:47)
[2017-12-18] MEDS ORDERED: NICOTINE POLACRILEX 4 MG GUM BUC PRN (13:06)
[2017-12-18] MEDS ORDERED: NICOTINE 21 MG/24 HOURS TOPICAL PATCH TD SCH (13:15)
[2017-12-18] MEDS: THIAMINE HCL 100 MG TABLET (FP) PO SCH (21:24)
[2017-12-18] MEDS: ATORVASTATIN CA 80 MG TABLET (FP) PO SCH (21:24)
[2017-12-19] MEDS: CYCLOBENZAPRINE HCL 5 MG TABLET PO SCH ×3 (06:54→21:21)
[2017-12-19] MEDS ORDERED: PT OWN MED DRAWER 7, Y5N ONE (08:52)
[2017-12-19] MEDS: ISOSORBIDE MONONITRATE 30 MG TAB.SR.24H (FP) PO SCH (10:07)
[2017-12-19] MEDS: PRENATAL VITAMINS W/ FOLIC ACID TABLET (FP) PO SCH (10:07)
[2017-12-19] MEDS: NIFEdipine E.R. 30 MG TABLET (FP) PO SCH (10:07)
[2017-12-19] MEDS: LIDOCAINE 5% TOPICAL PATCH TP SCH (10:07)
[2017-12-19] MEDS: FUROSEMIDE 20 MG TABLET (FP) PO SCH (10:07)
[2017-12-19] MEDS: ATORVASTATIN CA 80 MG TABLET (FP) PO SCH (21:21)
[2017-12-19] MEDS: ACETAMINOPHEN 325 MG TABLET (FP) PO PRN (21:22)
[2017-12-19] MEDS: THIAMINE HCL 100 MG TABLET (FP) PO SCH (21:22)
[2017-12-20] MEDS: CYCLOBENZAPRINE HCL 5 MG TABLET PO SCH ×3 (06:38→21:22)
[2017-12-20] MEDS: PRENATAL VITAMINS W/ FOLIC ACID TABLET (FP) PO SCH (10:09)
[2017-12-20] MEDS: LIDOCAINE 5% TOPICAL PATCH TP SCH (10:09)
[2017-12-20] MEDS: ISOSORBIDE MONONITRATE 30 MG TAB.SR.24H (FP) PO SCH (10:09)
[2017-12-20] MEDS: FUROSEMIDE 20 MG TABLET (FP) PO SCH (10:09)
[2017-12-20] MEDS: NIFEdipine E.R. 30 MG TABLET (FP) PO SCH (10:09)
[2017-12-20] MEDS ORDERED: PT OWN MED DRAWER 7, Y5N ONE (18:51)
[2017-12-20] MEDS: THIAMINE HCL 100 MG TABLET (FP) PO SCH (21:22)
[2017-12-20] MEDS: ATORVASTATIN CA 80 MG TABLET (FP) PO SCH (21:22)
[2017-12-21] MEDS: CYCLOBENZAPRINE HCL 5 MG TABLET PO SCH ×3 (07:08→21:19)
[2017-12-21] MEDS: NIFEdipine E.R. 30 MG TABLET (FP) PO SCH (09:57)
[2017-12-21] MEDS: FUROSEMIDE 20 MG TABLET (FP) PO SCH (09:57)
[2017-12-21] MEDS: PRENATAL VITAMINS W/ FOLIC ACID TABLET (FP) PO SCH (09:57)
[2017-12-21] MEDS: LIDOCAINE 5% TOPICAL PATCH TP SCH (09:57)
[2017-12-21] MEDS: ISOSORBIDE MONONITRATE 30 MG TAB.SR.24H (FP) PO SCH (09:58)
[2017-12-21] MEDS ORDERED: AMMONIUM LACTATE 12% LOTION 225 GM BOTTLE TP PRN (13:05)
--- NOTE | 2017-12-21 13:06 | PN ---
BHS Progress Note Note: Vital Signs Temperature 97.5 F L 12/21/17 06:39 Pulse Rate 71 12/21/17 06:39 Respiratory Rate 18 12/21/17 06:39 Blood Pressure 119/89 12/21/17 06:39 O2 Sat by Pulse Oximetry (%) hx dry skin and psoriasis home list taken [place] previously ammonium lactate TP Lot increase fluids continue to monitor
[2017-12-21] MEDS: ATORVASTATIN CA 80 MG TABLET (FP) PO SCH (21:20)
[2017-12-21] MEDS: THIAMINE HCL 100 MG TABLET (FP) PO SCH (21:20)
[2017-12-22] MEDS: CYCLOBENZAPRINE HCL 5 MG TABLET PO SCH (07:33)
[2017-12-22] MEDS: CYCLOBENZAPRINE HCL 10 MG TABLET (FP) PO SCH ×3 (07:41→21:16)
[2017-12-22] MEDS ORDERED: CYCLOBENZAPRINE HCL 5 MG TABLET PO SCH (07:45)
[2017-12-22] MEDS: PRENATAL VITAMINS W/ FOLIC ACID TABLET (FP) PO SCH (09:59)
[2017-12-22] MEDS: ISOSORBIDE MONONITRATE 30 MG TAB.SR.24H (FP) PO SCH (09:59)
[2017-12-22] MEDS: FUROSEMIDE 20 MG TABLET (FP) PO SCH (09:59)
[2017-12-22] MEDS: NIFEdipine E.R. 30 MG TABLET (FP) PO SCH (09:59)
[2017-12-22] MEDS: LIDOCAINE 5% TOPICAL PATCH TP SCH (10:00)
[2017-12-22] MEDS: ATORVASTATIN CA 80 MG TABLET (FP) PO SCH (21:16)
[2017-12-22] MEDS: THIAMINE HCL 100 MG TABLET (FP) PO SCH (21:16)
[2017-12-23] MEDS: CYCLOBENZAPRINE HCL 10 MG TABLET (FP) PO SCH ×3 (06:48→21:15)
[2017-12-23] MEDS: FUROSEMIDE 20 MG TABLET (FP) PO SCH (10:01)
[2017-12-23] MEDS: PRENATAL VITAMINS W/ FOLIC ACID TABLET (FP) PO SCH (10:01)
[2017-12-23] MEDS: NIFEdipine E.R. 30 MG TABLET (FP) PO SCH (10:01)
[2017-12-23] MEDS: ISOSORBIDE MONONITRATE 30 MG TAB.SR.24H (FP) PO SCH (10:01)
[2017-12-23] MEDS: LIDOCAINE 5% TOPICAL PATCH TP SCH (10:02)
[2017-12-23] MEDS: ATORVASTATIN CA 80 MG TABLET (FP) PO SCH (21:15)
[2017-12-23] MEDS: THIAMINE HCL 100 MG TABLET (FP) PO SCH (21:15)
[2017-12-24] MEDS: CYCLOBENZAPRINE HCL 10 MG TABLET (FP) PO SCH ×3 (07:47→21:16)
[2017-12-24] MEDS: FUROSEMIDE 20 MG TABLET (FP) PO SCH (10:18)
[2017-12-24] MEDS: PRENATAL VITAMINS W/ FOLIC ACID TABLET (FP) PO SCH (10:18)
[2017-12-24] MEDS: LIDOCAINE 5% TOPICAL PATCH TP SCH (10:18)
[2017-12-24] MEDS: ISOSORBIDE MONONITRATE 30 MG TAB.SR.24H (FP) PO SCH (10:18)
[2017-12-24] MEDS: NIFEdipine E.R. 30 MG TABLET (FP) PO SCH (10:18)
[2017-12-24] MEDS: THIAMINE HCL 100 MG TABLET (FP) PO SCH (21:16)
[2017-12-24] MEDS: ATORVASTATIN CA 80 MG TABLET (FP) PO SCH (21:16)
[2017-12-25] MEDS: CYCLOBENZAPRINE HCL 10 MG TABLET (FP) PO SCH ×3 (06:51→21:25)
[2017-12-25] MEDS: PRENATAL VITAMINS W/ FOLIC ACID TABLET (FP) PO SCH (10:03)
[2017-12-25] MEDS: FUROSEMIDE 20 MG TABLET (FP) PO SCH (10:03)
[2017-12-25] MEDS: LIDOCAINE 5% TOPICAL PATCH TP SCH (10:03)
[2017-12-25] MEDS: NIFEdipine E.R. 30 MG TABLET (FP) PO SCH (10:03)
[2017-12-25] MEDS: ISOSORBIDE MONONITRATE 30 MG TAB.SR.24H (FP) PO SCH (10:03)
[2017-12-25] MEDS: MELATONIN 5 MG TABLETS PO PRN (21:25)
[2017-12-25] MEDS: THIAMINE HCL 100 MG TABLET (FP) PO SCH (21:25)
[2017-12-25] MEDS: ATORVASTATIN CA 80 MG TABLET (FP) PO SCH (21:25)
[2017-12-26 06:47] VITALS: BP 119/80; PULSE 87; TEMP 98
[2017-12-26] MEDS: CYCLOBENZAPRINE HCL 10 MG TABLET (FP) PO SCH (06:57)
--- NOTE | 2017-12-26 09:13 | PN ---
Psychiatric Progress Note Vital Signs: Vital Signs Period Temp Pulse Resp BP Sys/Portillo Pulse Ox Last 24 Hr 98.0 F 75-87 18-18 103-119/75-80 Date of Session: 12/26/17 Chief Complaint:: Discharge Note HPI: Patient addressing Cocaine and Cannabis dependence comorbid with Nicotine Dependence, Substance-Induced Mood Disorder and Substance-Induced Sleep Disorder ROS: HTN, HLD, CAD, DM, Obesity, Back pain/Spinal stenosis Current Medications: Active Medications Generic Name Dose Route Start Last Admin Trade Name Freq PRN Reason Stop Dose Admin Acetaminophen 325 mg 12/10/17 19:07 12/19/17 21:22 Tylenol - PO 325 mg Q6H PRN Administration PAIN LEVEL 1 - 3 Al Hydroxide/Mg Hydroxide 30 ml 12/07/17 21:29 Mylanta Oral Suspension - PO Q6H PRN DYSPEPSIA Atorvastatin Calcium 80 mg 12/07/17 22:00 12/25/17 21:25 Lipitor - PO 80 mg HS ELOINA Administration Cyclobenzaprine HCl 10 mg 12/22/17 07:45 12/26/17 06:57 Flexeril - PO Not Given TID ELOINA Eucalyptus/Menthol/Phenol/Sorbitol 1 each 12/07/17 21:29 Cepastat Lozenge - MM Q4H PRN SORE THROAT Furosemide 20 mg 12/08/17 10:00 12/25/17 10:03 Lasix - PO 20 mg DAILY ELOINA Administration Guaifenesin 10 ml 12/07/17 21:29 Robitussin Dm - PO Q6H PRN COUGH Ibuprofen 400 mg 12/07/17 21:29 12/09/17 21:09 Motrin - PO 400 mg Q6H PRN Administration Pain level 4-6 Isosorbide Mononitrate 60 mg 12/08/17 10:00 12/25/17 10:03 Imdur - PO 60 mg DAILY ELOINA Administration Lactic Acid 1 applic 12/21/17 13:05 12/25/17 21:25 Lac-Hydrin 12 TP 1 applic DAILY PRN Administration DRY SKIN Lidocaine 1 patch 12/08/17 10:00 12/25/17 10:03 Lidoderm Patch - TP 1 patch DAILY ELOINA Administration Loperamide HCl 4 mg 12/07/17 21:29 Imodium - PO Q6H PRN DIARRHEA Magnesium Citrate 300 ml 12/07/17 21:29 Citroma - PO Q48H PRN CONSTIPATION Magnesium Hydroxide 30 ml 12/07/17 21:29 Milk Of Magnesia - PO DAILY PRN CONSTIPATION Melatonin 5 mg 12/07/17 22:00 12/25/17 21:25 Melatonin PO 5 mg HS PRN Administration INSOMNIA Nifedipine 30 mg 12/08/17 10:00 12/25/17 10:03 Procardia Xl - PO 30 mg DAILY ELOINA Administration Multivit/Folic Acid/Iron 1 tab 12/08/17 10:00 12/25/17 10:03 Vitamins (Sjr) - PO 1 tab DAILY ELOINA Administration Pseudoephedrine/Triprolidine 1 combo 12/07/17 21:29 Actifed - PO TID PRN NASAL CONGESTION Thiamine HCl 100 mg 12/07/17 22:00 12/25/17 21:25 Vitamin B1 - PO 100 mg HS ELOINA Administration Current Side Effect: No Lab tests ordered: Yes Lab tests reviewed: Yes Provider note:: Patient has completed this program today. He has met his treatment goals and will continue to address his issues in outpatient treatment at [facility]. 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 He is stable for discharge today Total face to face time:: 35 Mental Status Exam - Mental Status Exam Alert and Oriented to: Time, Place, Person Cognitive Function: Fair Patient Appearance: Well Groomed Mood: Hopeful, Euthymic Affect: Appropriate Patient Behavior: Cooperative Speech Pattern: Clear Voice Loudness: Normal Thought Process: Intact Thought Disorder: Not Present Hallucinations: Denies Suicidal Ideation: Denies Homicidal Ideation: Denies Insight/Judgement: Fair Sleep: Fair Appetite: Good Muscle strength/Tone: Normal Gait/Station: Normal Psychiatric Treatment Plan - Problem List (1) Cocaine dependence Current Visit: Yes Qualifiers: Substance use status: uncomplicated Qualified Code(s): F14.20 - Cocaine dependence, uncomplicated (2) Cannabis dependence Current Visit: Yes (3) Nicotine dependence Current Visit: Yes Qualifiers: Nicotine product type: cigarettes Substance use status: uncomplicated Qualified Code(s): F17.210 - Nicotine dependence, cigarettes, uncomplicated (4) Substance induced mood disorder Current Visit: Yes (5) Substance-induced sleep disorder Current Visit: Yes (6) Back pain Current Visit: Yes Qualifiers: Chronicity: chronic Back pain laterality: midline Sciatica laterality: bilateral sciatica Comment: PAIN OF WHOLE SPINE (7) CAD (coronary artery disease) Current Visit: Yes Qualifiers: Coronary Disease-Associated Artery/Lesion type: bypass graft [place] vs. transplanted heart: [place] heart (8) Diabetes mellitus Current Visit: Yes Qualifiers: Diabetes mellitus type: type 2 Diabetes mellitus senior care insulin use: without senior care use Diabetes mellitus complication status: without complication Qualified Code(s): E11.9 - Type 2 diabetes mellitus without complications (9) Dyslipidemia Current Visit: Yes (10) Hypertension Current Visit: Yes Qualifiers: Hypertension type: essential hypertension Qualified Code(s): I10 - Essential (primary) hypertension (11) Spinal stenosis Current Visit: Yes Initial treatment plan: Patient is discharged today and is referred to [facility] for outpatient treatment
[2017-12-26] MEDS: ISOSORBIDE MONONITRATE 30 MG TAB.SR.24H (FP) PO SCH (09:25)
[2017-12-26] MEDS: LIDOCAINE 5% TOPICAL PATCH TP SCH (09:25)
[2017-12-26] MEDS: NIFEdipine E.R. 30 MG TABLET (FP) PO SCH (09:25)
[2017-12-26] MEDS: FUROSEMIDE 20 MG TABLET (FP) PO SCH (09:25)
[2017-12-26] MEDS: PRENATAL VITAMINS W/ FOLIC ACID TABLET (FP) PO SCH (09:25)
== END 2017-12-26 10:45 | disposition home or self-care (01) | DRG 772 ==
LOC: YASAS 16:47 → Y5N 19:55
PROVIDERS: ADMIT Psychiatry & Neurology Psychiatry
PROC: HZ42ZZZ Group Counseling for Substance Abuse Treatment, Cognitive-Behavioral (ICD-10-PCS; principal; 2017-12-07)
DX: F14.20 Cocaine dependence, uncomplicated (principal); F12.20 Cannabis dependence, uncomplicated; F17.210 Nicotine dependence, cigarettes, uncomplicated; F19.24 Other psychoactive substance dependence with psychoactive substance-induced mood disorder; F19.282 Other psychoactive substance dependence with psychoactive substance-induced sleep disorder; M54.2 Cervicalgia; M48.00 Spinal stenosis, site unspecified; M54.31 Sciatica, right side; M54.32 Sciatica, left side; I25.10 Atherosclerotic heart disease of native coronary artery without angina pectoris; Z95.5 Presence of coronary angioplasty implant and graft; I10 Essential (primary) hypertension; E78.5 Hyperlipidemia, unspecified; E11.9 Type 2 diabetes mellitus without complications; E66.9 Obesity, unspecified; Z68.28 Body mass index [BMI] 28.0-28.9, adult
CPT/HCPCS: 36415; 80053; 81003; 82962; 85027; 86593; 93005; 93010

== ENCOUNTER 2018-11-09 19:10 | Inpatient (IN) | payer BC ==
[2018-11-09 19:46] VITALS: BMI 31.9
--- NOTE | 2018-11-09 20:52 | HP ---
CIWA Score Nausea/Vomitin-No Nausea/No Vomiting Muscle Tremors: None Anxiety: 0-No Anxiety, at Ease Agitation: 0-Normal Activity Paroxysmal Sweats: No Perspiration Orientation: 0-Oriented Tacttile Disturbances: 0-None Auditory Disturbances: 0-None Visual Disturbances: 0-None Headache: 0-None Present CIWA-Ar Total Score: 0 - Admission Criteria OASAS Guidelines: Admission for Medically Managed Detox: Requires at least one of the followin. CIWA greater than 12 2. Seizures within the past 24 hours 3. Delirium tremens within the past 24 hours 4. Hallucinations within the past 24 hours 5. Acute intervention needed for co occurring medical disorder 6. Acute intervention needed for co occurring psychiatric disorder 7. Severe withdrawal that cannot be handled at a lower level of care (continued vomiting, continued diarrhea, abnormal vital signs) requiring intravenous medication and/or fluids 8. Patient presents the following: None of the above Admission Criteria Met: Admission criteria not met Admission ROS [facility] Chief Complaint: seeking txment for his alcohol addiction Allergies/Adverse Reactions: Allergies Allergy/AdvReac Type Severity Reaction Status Date / Time lactose AdvReac bloating Verified 12/07/17 19:21 and gas red sauce Allergy Intermediate Hives Uncoded 12/07/17 19:21 RED MEAT Allergy Mild Hives Uncoded 12/07/17 19:21 History of Present Illness: 57 Y.O. MALE WITHHX/O ALCOHOLISM AND OPIATE DEPENDENCE HERE FOR DETOX. CLIENT UTOX IS NEGATIVE FOR ANY OPIATES TO INCLUDE METHADONE. hIS UTOX IS POSITIVE FOR THC, JAMAAL, BZO. CLIENT STATES HE WAS DETOXED FROM ALCOHOL WITH LIBRIUM WHILE AT [facility]. HE STATES HE SPENT 6 DAYS THERE AND WAS DC 4 DAYS AGO. HE DENIES GETTING METHADONE WHILE THERE. HE PRESENTS DC PAPERS FROM [facility] AFTER BEING SEEN AND MEDICALLY CLEARED FOR COMPLAINTS OF C.P. HE DENIES ANY ALCOHOL USE IN THE LAST 24 HOURS. CIWA IS 0. DENIES HX/O DT'S, WITHDRAWAL SZ, SI, HI,AVH. CLIENT WILL BE ADMITTED TO REHAB HE DOES NOT MEET CRITERIA FOR DETOX. CLIENT AGREES TO ADMISSION. REPORTS LONGEST CLEAN TIME 2.5 YEARS. DENIES ANY IN THE PAST YEAR EXCEPT WHEN IN TXMENT. DOMICILED, SSSI, DENIES LEGALS PMHX-HTN, DM, CAD, HLD, SPINAL STENOSIS, NEUROPATHY PSYCH- DEPRESSION MEDS- NON COMPLAINT WITH MED MGMT Exam Limitations: Physical Impairment (AMBUALTES WITH CANE DUE TO UNSTEADY GAIT) - Ebola screening Have you traveled outside of the country in the last 21 days: No (N) Have you had contact with anyone from an Ebola affected area: No Do you have a fever: No - Review of Systems Constitutional: No Symptoms Reported EENT: reports: Dental Problems (MISSING TEETH) Respiratory: reports: No Symptoms reported Cardiac: reports: No Symptoms Reported GI: reports: No Symptoms Reported : reports: No Symptoms Reported Musculoskeletal: reports: Back Pain (CHRONIC), Joint Pain (CHRONIC), Neck Pain ( CHRONIC), Joint Stiffness (CHRONIC) Integumentary: reports: No Symptoms Reported Neuro: reports: Numbness, Unsteady Gait (AMBUALTES WITH CANE) Endocrine: reports: Other (HX/O DM) Hematology: reports: No Symptoms Reported Psychiatric: reports: Orientated x3 Other Systems: Reviewed and Negative Patient History - Patient Medical History Hx Anemia: No Hx Asthma: No Hx Chronic Obstructive Pulmonary Disease (COPD): No Hx Cancer: No Hx Cardiac Disorders: Yes Hx Congestive Heart Failure: No Hx Hypertension: Yes Hx Hypercholesterolemia: Yes (ON MEDS) Hx Pacemaker: No HX Cerebrovascular Accident: No Hx Seizures: No Hx Dementia: No Hx Diabetes: Yes Hx Gastrointestinal Disorders: No Hx Liver Disease: No Hx Genitourinary Disorders: No Hx Sexually Transmitted Disorders: No Hx Renal Disease (ESRD): No Hx Thyroid Disease: No Hx Human Immunodeficiency Virus (HIV): No Hx Hepatitis C: No Hx Depression: Yes Hx Suicide Attempt: No Hx Bipolar Disorder: No Hx Schizophrenia: No - Patient Surgical History Past Surgical History: No Hx Neurologic Surgery: No Hx Cataract Extraction: No Hx Cardiac Surgery: Yes (CARDIAC STENTS #2 in 2010) Hx Lung Surgery: No Hx Breast Surgery: No Hx Breast Biopsy: No Hx Abdominal Surgery: No Hx Appendectomy: No Hx Cholecystectomy: Yes (02/22) Hx Genitourinary Surgery: No Hx Section: No Hx Orthopedic Surgery: Yes (S/P LAMINECTOMY C3,4,5 2004) Hx Hysterectomy: No Other Surgical History: CHRONIC CERVICAL PAIN Anesthesia Reaction: No - PPD History Previous Implant?: Yes Documented Results: Negative w/proof Implanted On Prior R Admission?: Yes Date: 03/23/17 Results: 0 mm PPD to be Administered?: No - Smoking Cessation Smoking history: Current some day smoker Have you smoked in the past 12 months: Yes Aproximately how many cigarettes per day: 2 Cigars Per Day: 0 Hx Chewing Tobacco Use: No Initiated information on smoking cessation: Yes 'Breaking Loose' booklet given: 11/09/18 - Substance & Tx. History Hx Alcohol Use: Yes Hx Substance Use: Yes Substance Use Type: Alcohol, Cocaine, Marijuana Hx Substance Use Treatment: Yes ([facility]) - Substances abused Alcohol Substance route: Oral Frequency: Daily Amount used: 2 pints, 2 six packs Age of first use: 15 Date of last use: 11/07/18 Other Other (specify): percocet Substance route: Oral Frequency: 3-6 times per week Amount used: 10/325mg tab (3) Age of first use: 57 Date of last use: 11/08/18 Marijuana/Hashish Substance route: Smoking Frequency: Daily Amount used: 1 joint Age of first use: 15 Date of last use: 11/08/18 Cocaine Substance route: Smoking Frequency: 3-6 times per week Amount used: $20 Age of first use: 26 Date of last use: 11/08/18 Family Disease History - Family Disease History Family Disease History: CA: Father (alzheimers,ALCOHOL), Other: Father, Mother ( ALCOHOL, HTN), Brother (aneurysm ) Admission Physical Exam S - Vital Signs Vital Signs: Vital Signs - 24 hr 11/09/18 19:20 Temperature 98.2 F Pulse Rate 67 Respiratory 18 Rate Blood Pressure 146/99 - Physical General Appearance: Yes: No Apparent Distress HEENTM: Yes: EOMI, Normocephalic, Normal Voice, HAIDER, Pharynx Normal, Other ( missing teeth) Respiratory: Yes: Chest Non-Tender, Lungs Clear, Normal Breath Sounds, No Respiratory Distress, No Accessory Muscle Use Neck: Yes: No masses,lesions,Nodules, Supple, Trachea in good position, Other ( surgical scar) Breast: Yes: Breast Exam Deferred Cardiology: Yes: S1, S2, Bradycardia, Irregular Abdominal: Yes: Non Tender, Soft, Increased Bowel Sounds, Protuberent Genitourinary: Yes: Within Normal Limits Back: Yes: Normal Inspection, Surgical Scar Musculoskeletal: Yes: Back pain, Joint Stiffness, Other (ambualtes with cane) Extremities: Yes: Normal Capillary Refill, Normal Range of Motion, Non-Tender Neurological: Yes: Fully Oriented, Alert Integumentary: Yes: Dry, Warm Lymphatic: Yes: Within Normal Limits - Diagnostic (1) Alcohol dependence with uncomplicated withdrawal Current Visit: Yes Status: Acute (2) Cannabis abuse Current Visit: Yes Status: Chronic (3) Cervical pain (neck) Current Visit: Yes Status: Chronic (4) Back pain Current Visit: Yes Status: Chronic Qualifiers: Chronicity: chronic Back pain laterality: midline Sciatica laterality: bilateral sciatica Comment: PAIN OF WHOLE SPINE (5) CAD (coronary artery disease) Current Visit: Yes Status: Chronic Qualifiers: Coronary Disease-Associated Artery/Lesion type: bypass graft [place] vs. transplanted heart: [place] heart (6) Cannabis dependence Current Visit: Yes Status: Chronic (7) Cocaine dependence Current Visit: Yes Status: Chronic Qualifiers: Substance use status: uncomplicated Qualified Code(s): F14.20 - Cocaine dependence, uncomplicated (8) Diabetes mellitus Current Visit: Yes Status: Chronic Qualifiers: Diabetes mellitus type: type 2 Diabetes mellitus correction insulin use: without intermediate school teacher use (9) Dyslipidemia Current Visit: Yes Status: Chronic (10) Hypertension Current Visit: Yes Status: Chronic Qualifiers: Hypertension type: essential hypertension Qualified Code(s): I10 - Essential (primary) hypertension (11) Nicotine dependence Current Visit: Yes Status: Chronic Qualifiers: Nicotine product type: cigarettes Substance use status: uncomplicated Qualified Code(s): F17.210 - Nicotine dependence, cigarettes, uncomplicated (12) Spinal stenosis Current Visit: Yes Status: Chronic (13) Substance induced mood disorder Current Visit: Yes Status: Suspected (14) Substance-induced sleep disorder Current Visit: Yes Status: Suspected Cleared for Admission [facility] - Detox or Rehab Detox Regimen/Protocol: Not Applicable Claeared for Rehab Admission: Yes Breathalyzer - Breathalyzer Breathalyzer: 0 Urine Drug Screen - Test Device Lot number: [id number] Expiration date: 08/08/20 - Control Is test valid?: Yes - Results Drug screen NEGATIVE: No Urine drug screen results: THC-Marijuana, JAMAAL-Cocaine, BZO-Benzodiazepines Inpatient Rehab Admission - Rehab Decision to Admit Inpatient rehab admission?: Yes - Initial Determination Are CD services needed?: Yes Free of communicable disease: Yes Not in need of hospitalization: Yes - Rehab Admission Criteria Previous failed treatment: Yes Poor recovery environment: Yes Comorbidities: Yes Lacks judgement: No Patient is meeting Inpatient Rehab admission criteria:: Yes
[2018-11-09] MEDS ORDERED: guaiFENesin 200 MG/10 ML 10 ML UNIT-DOSE CUPS PO PRN (20:58)
[2018-11-09] MEDS ORDERED: LOPERAMIDE HCL 2 MG CAPSULE PO PRN (20:58)
[2018-11-09] MEDS ORDERED: MAGNESIUM HYDROX 2400MG/30ML ORAL SUSPENSION 30 ML CUP PO PRN (20:58)
[2018-11-09] MEDS ORDERED: IBUPROFEN 400 MG TABLET (FP) PO PRN (20:58)
[2018-11-09] MEDS ORDERED: ACETAMINOPHEN 325 MG TABLET (FP) PO PRN (20:58)
[2018-11-09] MEDS ORDERED: MAGNESIUM CITRATE 300 ML BOTTLE PO PRN (20:58)
[2018-11-09] MEDS ORDERED: hydrOXYzine HCL 25 MG TABLET (FP) PO PRN (20:58)
[2018-11-09] MEDS ORDERED: MAG HYDROX/AL HYDROX/SIMETH 30 ML UNIT-DOSE CUP PO PRN (20:58)
[2018-11-09] MEDS ORDERED: MENTHOL/PHENOL 1 EACH UD MM PRN (20:58)
[2018-11-09] MEDS ORDERED: NICOTINE POLACRILEX 2 MG GUM BUC PRN (20:58)
[2018-11-09] MEDS ORDERED: P-EPHED 60MG/TRIPROLIDI 2.5MG TABLET PO PRN (20:58)
[2018-11-09] MEDS ORDERED: MELATONIN 5 MG TABLETS PO PRN (22:00)
[2018-11-09] MEDS: GABAPENTIN 400 MG CAPSULE (FP) PO SCH (22:11)
[2018-11-09] MEDS: THIAMINE HCL 100 MG TABLET (FP) PO SCH (22:11)
[2018-11-09] MEDS: ATORVASTATIN CA 80 MG TABLET (FP) PO SCH (22:11)
[2018-11-09] MEDS: LIDOCAINE PATCH REMOVAL MC SCH (22:12)
[2018-11-10] MEDS: GABAPENTIN 400 MG CAPSULE (FP) PO SCH ×3 (07:00→21:20)
[2018-11-10] MEDS: ASPIRIN COATED 81 MG TABLET.EC PO SCH (10:31)
[2018-11-10] MEDS: LISINOPRIL 20 MG TABLET (FP) PO SCH (10:31)
[2018-11-10] MEDS: PRENATAL VITAMINS W/ FOLIC ACID TABLET (FP) PO SCH (10:31)
[2018-11-10] MEDS: LIDOCAINE 5% TOPICAL PATCH TP SCH (10:32)
[2018-11-10] MEDS: NICOTINE 7 MG/24 HOURS TOPICAL PATCH TD SCH (10:37)
[2018-11-10] MEDS: FUROSEMIDE 20 MG TABLET (FP) PO SCH (11:36)
[2018-11-10] MEDS: ISOSORBIDE MONONITRATE 60 MG TAB.SR.24H (FP) PO SCH (11:36)
[2018-11-10 11:52] LABS: HEMATOCRIT 42.7 % (35.4-49); HEMOGLOBIN 14.2 GM/dL (11.7-16.9); MCH 31.2 pg (25.7-33.7); MCHC 33.3 g/dl (32.0-35.9); MEAN CELL VOLUME 93.6 fl (80-96); MEAN PLT VOLUME 10.5 fl (7.5-11.1); RBC 4.56 M/mm3 (4.00-5.60); RDW 14.2 % (11.9-15.9); WHITE BLOOD COUNT 3.2 K/mm3 (4.0-10.0)
[2018-11-10 12:10] LABS: ALBUMIN 3.3 g/dl (3.4-5.0); BILIRUBIN,TOTAL 0.4 mg/dL (0.2-1); BLOOD UREA NITROGEN 19.6 mg/dL (7-18); CALCIUM 8.3 mg/dL (8.5-10.1); CREATININE 1.1 mg/dL (0.55-1.3); POTASSIUM 4.2 mmol/L (3.5-5.1); TOT PROT 6.5 g/dl (6.4-8.2)
[2018-11-10 12:16] LABS: PLATELET COUNT 131 K/MM3 (134-434)
--- NOTE | 2018-11-10 13:57 | EKG ---
Test Reason : Blood Pressure : / mmHG Vent. Rate : 078 BPM Atrial Rate : 078 BPM P-R Int : 202 ms QRS Dur : 118 ms QT Int : 412 ms P-R-T Axes : 060 -54 039 degrees QTc Int : 469 ms SINUS RHYTHM WITH FREQUENT and consecutive PREMATURE VENTRICULAR COMPLEXES LEFT AXIS DEVIATION LEFT VENTRICULAR HYPERTROPHY WITH QRS WIDENING ABNORMAL ECG WHEN COMPARED WITH ECG OF 07-DEC-2017 21:56, T WAVE INVERSION NO LONGER EVIDENT IN INFERIOR LEADS Confirmed by ELVA العلي MD ([id number]) on 11/10/2018 1:56:46 PM Referred By: Romaine Sanchez Confirmed By:ELVA العلي MD
--- NOTE | 2018-11-10 14:10 | CONSULT ---
[facility] Psychiatric Consult - Data Date of interview: 11/10/18 Admission source: [facility] Identifying data: Patient is a 57 year old single male, father of two, unemployed, domiciled, and is supported by [facility]. This is one of multiple admissions for patient. Patient admitted to for cocaine and marijuana dependence. Substance Abuse History: Smoking Cessation. Smoking history: Current some day smoker. Have you smoked in the past 12 months: Yes. Aproximately how many cigarettes per day: 2. Cigars Per Day: 0. Hx Chewing Tobacco Use: No. Initiated information on smoking cessation: Yes. 'Breaking Loose' booklet given : 11/09/18. - Substance & Tx. History. Hx Alcohol Use: Yes. Hx Substance Use : Yes. Substance Use Type: Alcohol, Cocaine, Marijuana. Hx Substance Use Treatment: Yes ([facility]). - Substances abused. Alcohol. Substance route: Oral. Frequency: Daily. Amount used: 2 pints, 2 six packs. Age of first use: 15. Date of last use: 11/07/18. Other. Other (specify): percocet. Substance route: Oral. Frequency: 3-6 times per week. Amount used: 10/325mg tab (3). Age of first use: 57. Date of last use: 11/08/18. Marijuana/ Hashish. Substance route: Smoking. Frequency: Daily. Amount used: 1 joint. Age of first use: 15. Date of last use: 11/08/18. Cocaine. Substance route : Smoking. Frequency: 3-6 times per week. Amount used: $20. Age of first use : 26. Date of last use: 11/08/18 Medical History: hypertension, Hypercholesterolemia, diabetes, Cardiac stents # 2 in 2010, S/P Laminectomy C3,4,5 2004, chronic cervical pain, Spinal stenosis, neuropathy Psychiatric History: Patient denies h/o psychiatric hospitalization and suicide attempts. Patient reports seeing multiple psychiatrist when admitted to detox/ rehab settings. Reports history of being prescribed klonopin 2mg daily + remeron 15mg HS by his primary care physician which no longer cares for patient. Patient is currently seeing a psychiatrist in [facility] in the [place], [place] and is prescribed Remeron 15mg HS + Klonopin 1mg BID. At present patient reports feeling sad and is experiencing difficulty sleeping. States his sadness is secondary to his time spent in [facility], deaths in family, and history of substance abuse. Physical/Sexual Abuse/Trauma History: denies. Mental Status Exam - Mental Status Exam Alert and Oriented to: Time, Place, Person Cognitive Function: Good Patient Appearance: Well Groomed Mood: Hostile Affect: Appropriate Patient Behavior: Cooperative Speech Pattern: Appropriate Voice Loudness: Normal Thought Process: Goal Oriented Thought Disorder: Not Present Hallucinations: Denies Suicidal Ideation: Denies Homicidal Ideation: Denies Insight/Judgement: Poor Sleep: Poorly Appetite: Fair Muscle strength/Tone: Normal Gait/Station: Other (Patient ambulates with a cane.) Psychiatric Findings - Problem List ([place] 1, 2,3) (1) Alcohol dependence Current Visit: Yes Status: Acute (2) Cannabis dependence Current Visit: Yes Status: Chronic (3) Cocaine dependence Current Visit: Yes Status: Chronic Qualifiers: Substance use status: uncomplicated Qualified Code(s): F14.20 - Cocaine dependence, uncomplicated (4) Substance induced mood disorder Current Visit: Yes Status: Acute (5) Substance-induced sleep disorder Current Visit: Yes Status: Acute - Initial Treatment Plan Initial Treatment Plan: Psychoeducation provided. Rehab in progress. Will order Remeron 30mg HS (external records show 30 day prescription on 11/03/18) Benefits and side effects discussed. Verbal consent given.
[2018-11-10 15:13] LABS: EPI CELLS 7.9 /HPF (0-5/HPF); HYALINE CASTS 6 /lpf (0-8); URINE APPEARANCE CLEAR; URINE BACTERIA 12.2 /hpf (NEGATIVE); URINE BILIRUBIN NEGATIVE (NEGATIVE); URINE COLOR YELLOW; URINE GLUCOSE (UA) NEGATIVE (NEGATIVE); URINE KETONE NEGATIVE (NEGATIVE); URINE LEUK ESTERASE TRACE (NEGATIVE); URINE NITRITE NEGATIVE (NEGATIVE); URINE PROTEIN NEGATIVE (NEGATIVE); URINE RBC 0 /hpf (0-4); URINE UROBILINOGEN 0.2 mg/dL (0.2-1.0); URINE WBC 7 /hpf (0-5)
--- NOTE | 2018-11-10 16:01 | PN ---
[facility] Progress Note Note: Ekg Repeat Review: Sinus Rhythm with Occasional premature ventricular complexes Left [place] deviation LVH with QRS widening Septal Infarct ,age undetermined Above repeated Ekg today with no significant change from previous of 11/09/18. Asymptomatic
[2018-11-10] MEDS: THIAMINE HCL 100 MG TABLET (FP) PO SCH (21:20)
[2018-11-10] MEDS: MIRTAZAPINE 30 MG TABLET (FP) PO SCH (21:20)
[2018-11-10] MEDS: LIDOCAINE PATCH REMOVAL MC SCH (21:20)
[2018-11-10] MEDS: ATORVASTATIN CA 80 MG TABLET (FP) PO SCH (21:20)
[2018-11-11] MEDS: GABAPENTIN 400 MG CAPSULE (FP) PO SCH ×3 (06:20→21:36)
[2018-11-11] MEDS: ISOSORBIDE MONONITRATE 60 MG TAB.SR.24H (FP) PO SCH (10:25)
[2018-11-11] MEDS: LISINOPRIL 20 MG TABLET (FP) PO SCH (10:25)
[2018-11-11] MEDS: PRENATAL VITAMINS W/ FOLIC ACID TABLET (FP) PO SCH (10:25)
[2018-11-11] MEDS: FUROSEMIDE 20 MG TABLET (FP) PO SCH (10:25)
[2018-11-11] MEDS: NICOTINE 7 MG/24 HOURS TOPICAL PATCH TD SCH (10:25)
[2018-11-11] MEDS: ASPIRIN COATED 81 MG TABLET.EC PO SCH (10:25)
[2018-11-11] MEDS: LIDOCAINE 5% TOPICAL PATCH TP SCH (10:27)
[2018-11-11] MEDS: THIAMINE HCL 100 MG TABLET (FP) PO SCH (21:36)
[2018-11-11] MEDS: ATORVASTATIN CA 80 MG TABLET (FP) PO SCH (21:36)
[2018-11-11] MEDS: LIDOCAINE PATCH REMOVAL MC SCH (21:36)
[2018-11-11] MEDS: MIRTAZAPINE 30 MG TABLET (FP) PO SCH (21:36)
[2018-11-12] MEDS: GABAPENTIN 400 MG CAPSULE (FP) PO SCH ×3 (06:28→21:20)
--- NOTE | 2018-11-12 09:18 | EKG ---
Test Reason : Blood Pressure : / mmHG Vent. Rate : 072 BPM Atrial Rate : 072 BPM P-R Int : 200 ms QRS Dur : 122 ms QT Int : 410 ms P-R-T Axes : 057 -61 -02 degrees QTc Int : 448 ms SINUS RHYTHM WITH OCCASIONAL PREMATURE VENTRICULAR COMPLEXES LEFT AXIS DEVIATION LEFT VENTRICULAR HYPERTROPHY WITH QRS WIDENING SEPTAL INFARCT , AGE UNDETERMINED ABNORMAL ECG WHEN COMPARED WITH ECG OF 09-NOV-2018 22:23, COMPARED TO EKG NO SIGNIFICANT CHANGE IS FOUND Confirmed by DINH TEMPLETON MD ([id number]) on 11/12/2018 9:18:23 AM Referred By: Romaine Sanchez Confirmed By:DINH TEMPLETON MD
[2018-11-12] MEDS: NICOTINE 7 MG/24 HOURS TOPICAL PATCH TD SCH (09:59)
[2018-11-12] MEDS: LIDOCAINE 5% TOPICAL PATCH TP SCH (09:59)
[2018-11-12] MEDS: FUROSEMIDE 20 MG TABLET (FP) PO SCH (10:00)
[2018-11-12] MEDS: PRENATAL VITAMINS W/ FOLIC ACID TABLET (FP) PO SCH (10:00)
[2018-11-12] MEDS: ISOSORBIDE MONONITRATE 60 MG TAB.SR.24H (FP) PO SCH (10:00)
[2018-11-12] MEDS: ASPIRIN COATED 81 MG TABLET.EC PO SCH (10:00)
[2018-11-12] MEDS: LISINOPRIL 20 MG TABLET (FP) PO SCH (10:00)
[2018-11-12] MEDS: MIRTAZAPINE 30 MG TABLET (FP) PO SCH (21:20)
[2018-11-12] MEDS: THIAMINE HCL 100 MG TABLET (FP) PO SCH (21:20)
[2018-11-12] MEDS: ATORVASTATIN CA 80 MG TABLET (FP) PO SCH (21:20)
[2018-11-12] MEDS: LIDOCAINE PATCH REMOVAL MC SCH (21:20)
[2018-11-13] MEDS: GABAPENTIN 400 MG CAPSULE (FP) PO SCH ×3 (06:35→21:23)
[2018-11-13] MEDS: PRENATAL VITAMINS W/ FOLIC ACID TABLET (FP) PO SCH (10:03)
[2018-11-13] MEDS: LIDOCAINE 5% TOPICAL PATCH TP SCH (10:03)
[2018-11-13] MEDS: LISINOPRIL 20 MG TABLET (FP) PO SCH (10:03)
[2018-11-13] MEDS: ISOSORBIDE MONONITRATE 60 MG TAB.SR.24H (FP) PO SCH (10:03)
[2018-11-13] MEDS: FUROSEMIDE 20 MG TABLET (FP) PO SCH (10:03)
[2018-11-13] MEDS: NICOTINE 7 MG/24 HOURS TOPICAL PATCH TD SCH (10:03)
[2018-11-13] MEDS: ASPIRIN COATED 81 MG TABLET.EC PO SCH (10:03)
[2018-11-13] MEDS: MIRTAZAPINE 30 MG TABLET (FP) PO SCH (21:23)
[2018-11-13] MEDS: THIAMINE HCL 100 MG TABLET (FP) PO SCH (21:23)
[2018-11-13] MEDS: ATORVASTATIN CA 80 MG TABLET (FP) PO SCH (21:23)
[2018-11-13] MEDS: LIDOCAINE PATCH REMOVAL MC SCH (21:24)
[2018-11-14] MEDS: GABAPENTIN 400 MG CAPSULE (FP) PO SCH (06:11)
[2018-11-14 06:39] VITALS: TEMP 98.2
--- NOTE | 2018-11-14 09:53 | PN ---
[facility] Progress Note (SOAP) Subjective: Pt is a 57 y/o male admitted to rehab on 11/09/18 for substance use disorder. Pt has an extensive past medical hx of CAD, Pt saw the counselor and has been referred to CD aftercare treatment at [facility]. Pt reports he has a primary care with Dr.E. Lehman Ph: . Pt reports he lost all his medications filled mid october at [facility]. Courtesy Rx for 14 days electronically sent to [facility] and patient instructed to call his medical provider after discharge for follow up appointment. Objective: 11/14/18 10:35 General:Alert o x 3. Nad. Heent:Normocephalic,Eomi, Perrla. Neck:Supple, from, no jvd. Heart:s1 s2, irregular rhythm Lungs:cta, roshan., no wheeze, rales or rhonchi Abdomen:Soft,+bs,nt,nd Extremities:no e/c/c Vital Signs - 24 hr 11/14/18 11/14/18 11/14/18 00:30 03:30 06:38 Temperature 98.2 F Pulse Rate 69 Respiratory 18 18 20 Rate Blood Pressure 124/69 Laboratory Tests 11/09/18 11/10/18 11/10/18 21:12 07:24 08:15 WBC 3.2 L RBC 4.56 Hgb 14.2 Hct 42.7 MCV 93.6 MCH 31.2 MCHC 33.3 RDW 14.2 Plt Count 131 L MPV 10.5 Sodium Potassium Chloride Carbon Dioxide Anion Gap BUN Creatinine Est GFR (CKD-EPI)AfAm Est GFR (CKD-EPI)NonAf POC Glucometer 91 91 Random Glucose Calcium Total Bilirubin AST ALT Alkaline Phosphatase Total Protein Albumin Urine Color Urine Appearance Urine pH Ur Specific [place] Urine Protein Urine Glucose (UA) Urine Ketones Urine Blood Urine Nitrite Urine Bilirubin Urine Urobilinogen Ur Leukocyte Esterase Urine WBC (Auto) Urine RBC (Auto) Urine Casts (Auto) U Epithel Cells (Auto) Urine Bacteria (Auto) RPR Titer 11/10/18 11/10/18 11/10/18 08:15 08:15 12:10 WBC RBC Hgb Hct MCV MCH MCHC RDW Plt Count MPV Sodium 139 Potassium 4.2 Chloride 106 Carbon Dioxide 26 Anion Gap 7 L BUN 19.6 H Creatinine 1.1 Est GFR (CKD-EPI)AfAm 85.91 Est GFR (CKD-EPI)NonAf 74.12 POC Glucometer Random Glucose 119 H Calcium 8.3 L Total Bilirubin 0.4 AST 16 ALT 26 Alkaline Phosphatase 123 H Total Protein 6.5 Albumin 3.3 L Urine Color Yellow Urine Appearance Clear Urine pH 5.0 Ur Specific [place] 1.023 Urine Protein Negative Urine Glucose (UA) Negative Urine Ketones Negative Urine Blood Negative Urine Nitrite Negative Urine Bilirubin Negative Urine Urobilinogen 0.2 Ur Leukocyte Esterase Trace Urine WBC (Auto) 7 Urine RBC (Auto) 0 Urine Casts (Auto) 6 U Epithel Cells (Auto) 7.9 Urine Bacteria (Auto) 12.2 RPR Titer Nonreactive 11/11/18 11/12/18 11/13/18 06:22 06:28 06:34 WBC RBC Hgb Hct MCV MCH MCHC RDW Plt Count MPV Sodium Potassium Chloride Carbon Dioxide Anion Gap BUN Creatinine Est GFR (CKD-EPI)AfAm Est GFR (CKD-EPI)NonAf POC Glucometer 117 87 108 Random Glucose Calcium Total Bilirubin AST ALT Alkaline Phosphatase Total Protein Albumin Urine Color Urine Appearance Urine pH Ur Specific [place] Urine Protein Urine Glucose (UA) Urine Ketones Urine Blood Urine Nitrite Urine Bilirubin Urine Urobilinogen Ur Leukocyte Esterase Urine WBC (Auto) Urine RBC (Auto) Urine Casts (Auto) U Epithel Cells (Auto) Urine Bacteria (Auto) RPR Titer 11/14/18 06:10 WBC RBC Hgb Hct MCV MCH MCHC RDW Plt Count MPV Sodium Potassium Chloride Carbon Dioxide Anion Gap BUN Creatinine Est GFR (CKD-EPI)AfAm Est GFR (CKD-EPI)NonAf POC Glucometer 102 Random Glucose Calcium Total Bilirubin AST ALT Alkaline Phosphatase Total Protein Albumin Urine Color Urine Appearance Urine pH Ur Specific [place] Urine Protein Urine Glucose (UA) Urine Ketones Urine Blood Urine Nitrite Urine Bilirubin Urine Urobilinogen Ur Leukocyte Esterase Urine WBC (Auto) Urine RBC (Auto) Urine Casts (Auto) U Epithel Cells (Auto) Urine Bacteria (Auto) RPR Titer Home Medications Medication Instructions Recorded Famotidine 20 mg PO HS #30 tablet 12/23/17 Lidocaine 5% Patch [Lidoderm -] 1 patch TP DAILY #1 patch 12/23/17 Mirtazapine [Remeron -] 30 mg PO HS 11/10/18 Aspirin Coated [Ecotrin -] 81 mg PO DAILY #14 tablet.ec 11/14/18 Atorvastatin Ca [Lipitor] 80 mg PO HS #14 tablet 11/14/18 Furosemide [Lasix -] 20 mg PO DAILY #14 tablet 11/14/18 Gabapentin 800 mg PO TID 14 Days tablet 11/14/18 Isosorbide Mononitrate [Imdur -] 60 mg PO DAILY #14 tab.sr.24h 11/14/18 Lisinopril [Prinivil -] 20 mg PO DAILY #14 tablet 11/14/18 Assessment: 11/14/18 10:36 Nad Medically stable for discharge [facility] Inpatient Services Medical - Diagnosis (1) Alcohol dependence Current Visit: Yes Status: Acute (2) CAD (coronary artery disease) Qualifiers: Coronary Disease-Associated Artery/Lesion type: bypass graft [place] vs. transplanted heart: [place] heart Current Visit: Yes Status: Chronic (3) Cannabis dependence Current Visit: Yes Status: Chronic (4) Cocaine dependence Qualifiers: Substance use status: uncomplicated Qualified Code(s): F14.20 - Cocaine dependence, uncomplicated Current Visit: Yes Status: Chronic (5) Diabetes mellitus Qualifiers: Diabetes mellitus type: type 2 Diabetes mellitus manager terminal insulin use: without residential use Current Visit: Yes Status: Chronic (6) Hypertension Qualifiers: Hypertension type: essential hypertension Qualified Code(s): I10 - Essential (primary) hypertension Current Visit: Yes Status: Chronic (7) Nicotine dependence Qualifiers: Nicotine product type: cigarettes Substance use status: uncomplicated Qualified Code(s): F17.210 - Nicotine dependence, cigarettes, uncomplicated Current Visit: Yes Status: Chronic (8) Spinal stenosis Qualifiers: Neurogenic claudication status: unspecified Current Visit: Yes Status: Chronic (9) Obesity Current Visit: Yes Status: Chronic (10) S/P angioplasty with stent Current Visit: Yes Status: Chronic (11) S/P lumbar laminectomy Current Visit: Yes Status: Chronic Initialized on 11/14/18 09:53 - END OF NOTE Plan: D/c patient today as scheduled D/w pt to follow up with primary care provider, Dr. Justin Lehman at Ph:[phone] for medical management. Follow up with CD aftercare as recommended.
[2018-11-14] MEDS: PRENATAL VITAMINS W/ FOLIC ACID TABLET (FP) PO SCH (10:32)
[2018-11-14] MEDS: FUROSEMIDE 20 MG TABLET (FP) PO SCH (10:32)
[2018-11-14] MEDS: LIDOCAINE 5% TOPICAL PATCH TP SCH (10:32)
[2018-11-14] MEDS: NICOTINE 7 MG/24 HOURS TOPICAL PATCH TD SCH (10:32)
[2018-11-14] MEDS: LISINOPRIL 20 MG TABLET (FP) PO SCH (10:32)
[2018-11-14] MEDS: ISOSORBIDE MONONITRATE 60 MG TAB.SR.24H (FP) PO SCH (10:32)
[2018-11-14] MEDS: ASPIRIN COATED 81 MG TABLET.EC PO SCH (10:32)
[2018-11-14 11:06] VITALS: BP 115/80; PULSE 86
== END 2018-11-14 12:00 | disposition home or self-care (01) | DRG 772 ==
LOC: YASAS 19:10 → Y5N 20:46
PROVIDERS: ADMIT Neuromusculoskeletal Medicine & OMM; ATTEND Surgery
PROC: HZ42ZZZ Group Counseling for Substance Abuse Treatment, Cognitive-Behavioral (ICD-10-PCS; principal; 2018-11-09)
DX: F14.20 Cocaine dependence, uncomplicated (principal); F12.20 Cannabis dependence, uncomplicated; F17.210 Nicotine dependence, cigarettes, uncomplicated; F19.24 Other psychoactive substance dependence with psychoactive substance-induced mood disorder; F19.282 Other psychoactive substance dependence with psychoactive substance-induced sleep disorder; I10 Essential (primary) hypertension; I25.10 Atherosclerotic heart disease of native coronary artery without angina pectoris; E11.9 Type 2 diabetes mellitus without complications; E78.5 Hyperlipidemia, unspecified; G62.9 Polyneuropathy, unspecified; M54.2 Cervicalgia; M48.00 Spinal stenosis, site unspecified; E66.9 Obesity, unspecified; Z68.31 Body mass index [BMI] 31.0-31.9, adult; M54.32 Sciatica, left side; M54.31 Sciatica, right side; M54.9 Dorsalgia, unspecified; R00.1 Bradycardia, unspecified; G89.29 Other chronic pain; Z95.5 Presence of coronary angioplasty implant and graft; Z91.14 Patient's other noncompliance with medication regimen
CPT/HCPCS: 36415; 80053; 81003; 82962; 85027; 86593; 93005; 93010